=== PATIENT | female | born 1990 ===

== ENCOUNTER 2020-01-27 16:35 | Outpatient (REF) | payer OTHER, SELFPAY ==
[2020-01-27 16:52] LABS: COVID-19 Test Negative (Negative)
== END 2020-01-27 16:36 | disposition home or self-care (01) ==
LOC: HO.LAB 16:35
PROVIDERS: Visit Provider Internal Medicine
DX: Z20.828 Contact with and (suspected) exposure to other viral communicable diseases (principal)
CPT/HCPCS: 87635

== ENCOUNTER 2020-01-31 13:21 | Outpatient (REF) | payer OTHER, SELFPAY ==
[2020-01-31 13:49] LABS: COVID-19 Test Negative (Negative)
== END 2020-01-31 13:22 | disposition home or self-care (01) ==
LOC: HO.LAB 13:21
PROVIDERS: PCP Internal Medicine; Visit Provider Internal Medicine
DX: Z20.828 Contact with and (suspected) exposure to other viral communicable diseases (principal)
CPT/HCPCS: 87635

== ENCOUNTER 2020-02-13 14:35 | Outpatient (REF) | payer OTHER, SELFPAY ==
[2020-02-13 16:11] LABS: SARS COV2 PCR INHOUSE POSITIVE (Negative)
== END 2020-02-13 14:36 | disposition home or self-care (01) ==
LOC: HO.LAB 14:35
PROVIDERS: Visit Provider Internal Medicine
DX: Z20.828 Contact with and (suspected) exposure to other viral communicable diseases (principal)
CPT/HCPCS: U0003

== ENCOUNTER 2020-03-16 09:43 | Outpatient (REF) | payer OTHER, SELFPAY ==
[2020-04-14 15:19] LABS: CT PCR NOT DETECTED (Not Detect.); NG PCR NOT DETECTED (Not Detect.)
== END 2020-03-16 09:44 | disposition home or self-care (01) ==
LOC: HO.LAB 09:43
PROVIDERS: PCP Internal Medicine; Visit Provider Advanced Practice Midwife
DX: Z01.419 Encounter for gynecological examination (general) (routine) without abnormal findings (principal); Z11.8 Encounter for screening for other infectious and parasitic diseases; Z11.3 Encounter for screening for infections with a predominantly sexual mode of transmission
CPT/HCPCS: 87491; 87591

== ENCOUNTER → 2020-04-19 09:59 | Outpatient (BNVA) | payer OTHER, SELFPAY | PROVIDERS: PCP Internal Medicine; Visit Provider Advanced Practice Midwife | DX: Z30.430 Encounter for insertion of intrauterine contraceptive device (principal) | CPT/HCPCS: 58300; J7298 ==

== ENCOUNTER → 2020-07-11 13:49 | Outpatient (BNVA) | payer OTHER, SELFPAY | PROVIDERS: PCP Internal Medicine; Visit Provider Advanced Practice Midwife ==

== ENCOUNTER 2020-11-06 04:43 | Outpatient (REF) | payer OTHER, SELFPAY ==
[2020-11-06 05:00] LABS: Appearance Urine HAZY; Color Urine YELLOW; Glucose Urine UA NEG (NEG); Leukocyte Esterase Urine TRACE (NEG); Nitrite Urine POS (NEG); Specific Gravity - Urine 1.025 (1.005-1.025); UACC Culture Trigger YES; Urine Blood 1+ (NEG); Urine Ketones 5 MG/DL (NEG); Urine Protein TRACE MG/DL (NEG-TRACE)
[2020-11-06 05:16] LABS: Bacteria Urine 3+ /LPF; Mucus Urine 1+ /LPF; RBC Urine 0-2 /HPF (0); Squamous Epithelial Cell Urine 3+ /LPF
== END 2020-11-06 04:44 | disposition home or self-care (01) ==
LOC: HO.LAB 04:43
PROVIDERS: Visit Provider Student in an Organized Health Care Education/Training Program
DX: N39.0 Urinary tract infection, site not specified (principal)
CPT/HCPCS: 81001; 81003; 87086

== ENCOUNTER 2021-03-28 13:54 | Emergency (ER) | payer OTHER, SELFPAY ==
--- NOTE | ~2021-03-28 | CT_ITS ---
EXAMINATION: CT ABDOMEN AND PELVIS WITHOUT CONTRAST CLINICAL INFORMATION: Left flank pain COMPARISON: Pelvic ultrasound most recent July 2019 TECHNIQUE: Multidetector volumetric imaging was performed from the superior aspect of the liver through the pubic symphysis. Sagittal and coronal reformatted images were obtained on the technologist's workstation. This CT examination was performed using dose optimization techniques as appropriate, variously including the following: *Automated exposure control *Adjustment of mA and/or kV according to patient size (this includes techniques or standardized protocols for targeted exams where dose is matched to indication/reason for exam; i.e. extremities or head) *Use of iterative reconstruction technique DLP: 1338 mGy-cm FINDINGS: LUNG BASES: The visualized lung bases are unremarkable. LIVER, GALLBLADDER, AND BILIARY TREE: The liver is normal in size, shape, and attenuation. No focal hepatic lesion or biliary ductal dilatation is present. The gallbladder is unremarkable with no evidence of radiopaque gallstones, gallbladder wall thickening, or obvious pericholecystic inflammatory changes. PANCREAS: Unremarkable. SPLEEN: Unremarkable. ADRENAL GLANDS: Unremarkable. KIDNEYS AND URETERS: The kidneys are normal in size, shape, and attenuation. No hydronephrosis, hydroureter, or calculi seen. No perinephric stranding. BLADDER: Unremarkable. GASTROINTESTINAL TRACT: The small and large bowel are unremarkable. The appendix is unremarkable. ABDOMINAL WALL: No significant hernia is appreciated. LYMPH NODES: Normal. VASCULAR: Unremarkable. PELVIC VISCERA: There is an IUD in uterus in satisfactory position. There is a large cyst seen anterior to the uterus measuring 7.5 x 9 cm. This is new from July 2019 ultrasound. There is a cystic tubular structure seen adjacent to the right posterior side of the posterior uterus measuring 2 x 6 cm. This may correspond to the dilated tubular structure questionable for hydrosalpinx measuring 2.5 x 0.4 cm on July 2019 ultrasound. OSSEOUS STRUCTURES: There is curvature of the thoracic spine to the right. CT/CT abdomen pelvis wo con IMPRESSION: New large simple appearing cyst in the pelvis anterior to the uterus measuring 7.6 x 9.2 cm. Oval or tubular-shaped cystic structure in the right posterior pelvis measuring 2 x 6 cm questionable for hydrosalpinx similar to previous pelvic ultrasound. New IUD in the uterus in satisfactory position. Findings could be better evaluated with pelvic ultrasound if clinically indicated. Otherwise unremarkable exam. Fleischner guidelines were followed.
--- NOTE | ~2021-03-28 | US_ITS ---
EXAMINATION: US PELVIS CLINICAL INFORMATION: Abnormal CT scan of the pelvis with a large cyst seen anterior to the uterus measuring 7.5 x 9 cm, new from July 2019 ultrasound. There was also a cystic tubular structure adjacent to the right posterior side of the posterior uterus measuring 2 x 6 cm which may correspond to the dilated tubular structure questionable for hydrosalpinx measuring 2.5 x 0.4 cm on July 2019 ultrasound COMPARISON: CT scan 03/28/2021 and pelvic ultrasound 07/12/2019 TECHNIQUE: Ultrasound of the pelvis is performed using both transabdominal and transvaginal transducers along with Doppler. Transvaginal imaging is performed due to inadequate visualization transabdominally. FINDINGS: Uterus: The uterus is anteverted and measures 8.2 x 3.9 x 4.8 cm. An IUD is present in the uterus. Nabothian cysts are present. The double wall endometrial thickness is 13 mm. The uterus is smooth in contour and has normal myometrial echogenicity. No visible fibroid. Adnexa: There is a small to moderate amount of pelvic ascites, new since the prior exam. Right ovary measures 5.9 x 2.8 x 2.1 cm for a volume of 18.2 mL which includes a 2.4 x 2.8 x 1.8 cm complex possibly hemorrhagic cyst and an additional 3.4 x 2.2 x 2.6 cm cyst with probable septation versus 2 adjacent cysts. The large cyst seen on the CT scan anterior to the uterus is identified and measures 8.0 x 6.0 x 8.8 cm. Left ovary was not visualized. There is normal color flow to the RT adnexa without evidence of ovarian torsion. The left ovary could not be evaluated as it was not seen. US/US pelvic and transvaginal IMPRESSION: 1. Right ovary contains a hemorrhagic cyst and another cyst complicated with a single septation. 2. Midline cystic area could represent a hydrosalpinx or possibly a cyst related to the left ovary which was not visualized. 3. Small to moderate amount of free intraperitoneal fluid, new since the prior study.
[2021-03-28 14:12] VITALS: BP 155/81; PULSE 112; RESP 20; TEMP 36.8; O2SAT 98; BMI 45.1
--- NOTE | 2021-03-28 14:42 | ED.ABDPAIN ---
HPI - Abdominal Pain General Chief Complaint: Abdominal Pain Stated Complaint: Lower abd pain Time Seen by Provider: 03/28/21 14:24 Source: patient Mode of arrival: ambulatory Limitations: no limitations History of Present Illness HPI narrative: 31-year-old female here with reports of left-sided back pain with radiation to the left lower abdomen for several hours. Patient tells me that she had a similar episode on Friday with some vomiting but then it seemed to resolve. Today the pain reoccurs with vomiting, inability to tolerate p.o.. No associated urinary symptoms, diarrhea, fevers, chills, vaginal discharge. Patient has an IUD. No concern for . Related Data Home Medications Medication Instructions Recorded Confirmed levonorgestrel 20 mcg/24 hours (7 INTRAUTERINE 07/11/20 yrs) 52 mg intrauterine device (Mirena) Previous Rx's Medication Instructions Recorded desogestrel 0.15 mg-ethinyl 1 tab PO DAILY #84 tab 03/16/20 estradiol 0.03 mg tablet (Isibloom) ibuprofen 600 mg tablet 600 mg PO Q8H PRN #20 tab 03/28/21 ondansetron 4 mg disintegrating 4 mg PO Q6H PRN #15 tab 03/28/21 tablet oxycodone 5 mg tablet 5 mg PO Q8H PRN #8 tab 03/28/21 Allergies Allergy/AdvReac Type Severity Reaction Status Date / Time No Known Allergies Allergy Verified 07/11/20 14:04 [No Known Allergies*] Review of Systems Review of Systems Yes all other systems are reviewed and are negative Constitutional: Reports no additional constitutional complaints, Denies body ache(s), Denies chills, Denies fever(s), Denies headache(s) and Denies weakness Eyes: Reports no additional eye complaints and Denies change in vision Reports system reviewed and no additional complaints, except as documented, Denies dizziness, Denies headache(s), Denies nasal congestion, Denies nasal discharge and Denies neck pain Cardiovascular: Reports no additional cardiovascular complaints, Denies chest pain, Denies leg edema and Denies dyspnea Respiratory: Reports no additional respiratory complaints, Denies cough and Denies dyspnea Gastrointestinal: Reports no additional gastrointestinal complaints, Reports abdominal pain, Denies diarrhea, Denies nausea and Reports vomiting Genitourinary: Reports no additional female genitourinary complaints and Denies urinary incontinence Musculoskeletal: Reports no additional musculoskeletal complaints, Reports back pain, Denies arthralgias, Denies joint swelling, Denies neck pain, Denies numbness and Denies tingling Skin/Breast: Reports system reviewed and no additional complaints, except as docu and Denies rash Reports system reviewed and no additional complaints, except as documented, Denies Abnormal speech present, Denies dizziness, Denies headache(s), Denies numbness, Denies tingling and Denies weakness Physical Exam Vital Signs: Vital Signs: Last Vital Signs Temp 98.2 F 03/28/21 15:55 Pulse 77 03/28/21 15:55 Resp 15 03/28/21 15:55 BP 129/60 03/28/21 15:55 Pulse Ox 100 03/28/21 15:55 BMI result Body Mass Index 45.1 Const: Other: Patient is in pain General: awake and in distress Orientation/consciousness: patient oriented x3 Limitations: no limitations HENMT: Head: Yes normal to inspection Ears: hearing grossly normal bilaterally General nose exam: Normal external nose present Face and sinus: Yes normal facial exam Mouth: Normal oral and palatal mucosa present Throat: Yes posterior oropharynx normal Eyes: General: appearance normal, both eyes and all related structures Pupils: Equal, round and reactive pupils present Neck: Neck: Yes normal visual inspection Chest: Chest palpation & inspection: normal inspection of the chest Resp: Effort & Inspection: normal respiratory effort Auscultation: clear to auscultation bilaterally Cardio: Rate: regular rate Rhythm: regular rhythm Peripheral pulses: Peripheral pulses 2+ throughout GI: Inspection: Yes normal to inspection Palpation (GI): Soft to palpation and Tenderness to palpation present (GI) (Left lower quadrant) Auscultation: normal bowel sounds : General: Yes CVA tenderness (Left) Back/Spine/Pelvis: Back: CVA tenderness (Left) Thoracic/Lumbar Spine: thoracic and lumbar spine normal to inspection Skin: General skin exam: no rashes or lesions noted Neuro: General: patient oriented x3, no focal motor deficits and normal sensation to monofilament Cranial nerves: Yes Equal, round and reactive pupils present Cognition (Neuro): normal cognition Speech: No Abnormal speech present Gait exam (Neuro): Normal gait present Motor exam (neuro): 5/5 motor strength present throughout Extrem: General: Yes normal to inspection Course Course Course Narrative: 31-year-old female here with colicky left back pain with radiation to the left groin since Friday with associated vomiting. Concern for renal colic. Will check labs, UA, CT. Provide analgesia, antiemetic and fluids 1520-Continued pain after toradol, zofran. Will give morphine, phenergan, benadryl and re-assess. 1649- CT A/P-New large simple appearing cyst in the pelvis anterior to the uterus measuring 7.6 x 9.2 cm. Oval or tubular-shaped cystic structure in the right posterior pelvis measuring 2 x 6 cm questionable for hydrosalpinx similar to previous pelvic ultrasound. New IUD in the uterus in satisfactory position. Findings could be better evaluated with pelvic ultrasound if clinically indicated. Otherwise unremarkable exam. -Continued pain. Will check pelvic US. Patient denies vaginal discharge. She is sexually active with one partner. Will send BV, CT NG panel. Defer pelvic exam. 1839- IMPRESSION: 1.? Right ovary contains a hemorrhagic cyst and another cyst complicated with a single septation. 2.? Midline cystic area could represent a hydrosalpinx or possibly a cyst related to the left ovary which was not visualized. 3.? Small to moderate amount of free intraperitoneal fluid, new since the prior study. Left ovary was not visualized. Less likely ovarian torsion with improving exam. The case was discussed with Dr. Santacruz due to the multiple cysts seen and the size of the cyst. If pain is well controlled recommended discharge home with outpatient follow-up. Recommended that she return for severe pain and at that point he would do a surgical intervention. The patient is feeling much improved. She is tolerating liquids. No additional vomiting episodes. Will discharge home with OBGYN follow-up. MDM - Abdominal Pain MDM Narrative Medical decision making narrative: Renal colic, pyelonephritis, ovarian cyst, diverticulitis Medical Records Attestation: I reviewed the patient's medical records. Lab Data Attestation: I reviewed the patient's lab results. Result diagrams: 03/28/21 14:47 03/28/21 14:47 Labs: Lab Results 03/28/21 03/28/21 03/28/21 Range/Units 14:47 14:47 14:47 WBC 9.6 (4.8-10.8) X10*3/uL RBC 4.85 (4.20-5.50) X10*6/uL Hgb 12.7 (12.0-16.0) g/dl Hct 39.7 (37.0-47.0) % MCV 81.9 (80.0-98.0) fL MCH 26.2 L (27.0-33.0) pg MCHC 32.0 (31.0-35.0) g/dl RDW 16.0 (11.0-16.0) % Plt Count 394 (160-400) X10*3/uL MPV 9.3 L (9.4-12.3) fL Immature Gran % (Auto) 0.2 (0.0-0.4) % Neut % (Auto) 69.6 (45-73) % Lymph % (Auto) 19.9 L (20-40) % [place] % (Auto) 7.4 (2-11) % Eos % (Auto) 2.5 (0-4) % Baso % (Auto) 0.4 (0-2) % Lymph # (Auto) 1.9 (1.2-4.9) X10*3/uL [place] # (Auto) 0.7 (0.1-1.2) X10*3/uL Eos # (Auto) 0.2 (0.0-0.4) X10*3/uL Baso # (Auto) 0.0 (0.0-0.2) X10*3/uL Abs Immat Gran (auto) 0.02 (0.00-0.03) X10*3/uL Absolute Neuts (auto) 6.7 (2.0-8.3) x10*3/uL Absolute Nucleated RBC 0.000 (0.0-0.012) X10*3/uL Nucleated RBC % (auto) 0.0 (0.0-0.2) /100WBC Sodium 140 (135-145) mmol/L Potassium 4.1 (3.3-5.1) mmol/L Chloride 106 (96-108) mmol/L Carbon Dioxide 26 (22-29) mmol/L Anion Gap 12 (12-20) BUN 12 (9-16) mg/dL Creatinine 0.73 (0.5-1.4) mg/dL Estim Creat Clear Calc 150.8 Estimated GFR > 60 Random Glucose 99 (60-115) mg/dL Calcium 9.7 (8.4-10.2) mg/dL Total Bilirubin 0.4 0.4 (0.0-1.0) mg/dL Direct Bilirubin 0.2 (0.0-0.5) mg/dL AST 13 13 (5-31) U/L ALT 15 15 (0-31) U/L Alkaline Phosphatase 76 77 (39-117) U/L Total Protein 8.4 H 8.3 H (6.5-8.0) g/dL Albumin 4.0 3.9 (3.5-5.0) g/dL Urine Color Urine Appearance Urine pH (5.0-8.0) Ur Specific [place] (1.005-1.025) Urine Protein (NEG-TRACE) MG/DL Urine Glucose (UA) (NEG) MG/DL Urine Ketones (NEG) MG/DL Urine Blood (NEG) Urine Nitrite (NEG) Ur Leukocyte Esterase (NEG) Urine RBC (0) /HPF Urine WBC (0-4) /HPF Ur Squamous Epith Cells /LPF Urine Bacteria /LPF Urine Mucus /LPF Urine Test (NEGATIVE) 03/28/21 03/28/21 Range/Units 15:23 15:23 WBC (4.8-10.8) X10*3/uL RBC (4.20-5.50) X10*6/uL Hgb (12.0-16.0) g/dl Hct (37.0-47.0) % MCV (80.0-98.0) fL MCH (27.0-33.0) pg MCHC (31.0-35.0) g/dl RDW (11.0-16.0) % Plt Count (160-400) X10*3/uL MPV (9.4-12.3) fL Immature Gran % (Auto) (0.0-0.4) % Neut % (Auto) (45-73) % Lymph % (Auto) (20-40) % [place] % (Auto) (2-11) % Eos % (Auto) (0-4) % Baso % (Auto) (0-2) % Lymph # (Auto) (1.2-4.9) X10*3/uL [place] # (Auto) (0.1-1.2) X10*3/uL Eos # (Auto) (0.0-0.4) X10*3/uL Baso # (Auto) (0.0-0.2) X10*3/uL Abs Immat Gran (auto) (0.00-0.03) X10*3/uL Absolute Neuts (auto) (2.0-8.3) x10*3/uL Absolute Nucleated RBC (0.0-0.012) X10*3/uL Nucleated RBC % (auto) (0.0-0.2) /100WBC Sodium (135-145) mmol/L Potassium (3.3-5.1) mmol/L Chloride (96-108) mmol/L Carbon Dioxide (22-29) mmol/L Anion Gap (12-20) BUN (9-16) mg/dL Creatinine (0.5-1.4) mg/dL Estim Creat Clear Calc Estimated GFR Random Glucose (60-115) mg/dL Calcium (8.4-10.2) mg/dL Total Bilirubin (0.0-1.0) mg/dL Direct Bilirubin (0.0-0.5) mg/dL AST (5-31) U/L ALT (0-31) U/L Alkaline Phosphatase (39-117) U/L Total Protein (6.5-8.0) g/dL Albumin (3.5-5.0) g/dL Urine Color YELLOW Urine Appearance HAZY Urine pH 6.0 (5.0-8.0) Ur Specific [place] >= 1.030 H (1.005-1.025) Urine Protein TRACE (NEG-TRACE) MG/DL Urine Glucose (UA) NEG (NEG) MG/DL Urine Ketones NEG (NEG) MG/DL Urine Blood 2+ H (NEG) Urine Nitrite NEG (NEG) Ur Leukocyte Esterase 1+ H (NEG) Urine RBC 10-14 H (0) /HPF Urine WBC 1-4 (0-4) /HPF Ur Squamous Epith Cells 3+ /LPF Urine Bacteria 1+ /LPF Urine Mucus TRACE /LPF Urine Test NEGATIVE (NEGATIVE) Imaging Data CT scan - abdomen: Attestation: I personally reviewed and interpreted this imaging study as follows: Radiologist's impression: IMPRESSION: New large simple appearing cyst in the pelvis anterior to the uterus measuring 7.6 x 9.2 cm. Oval or tubular-shaped cystic structure in the right posterior pelvis measuring 2 x 6 cm questionable for hydrosalpinx similar to previous pelvic ultrasound. New IUD in the uterus in satisfactory position. Findings could be better evaluated with pelvic ultrasound if clinically indicated. Otherwise unremarkable exam. ? Fleischner guidelines were followed. pelvic US: Attestation: I personally reviewed and interpreted this imaging study as follows: Radiologist's impression: FINDINGS: Uterus: The uterus is anteverted and measures 8.2 x 3.9 x 4.8? cm.? An? IUD is present in the uterus. Nabothian cysts are present. The double wall endometrial thickness is 13 mm.? The uterus is smooth in contour and has normal myometrial echogenicity. ? No visible fibroid. Adnexa: There is a small to moderate amount of pelvic ascites, new since the prior exam. Right ovary measures 5.9 x 2.8 x 2.1 cm for a volume of 18.2 mL which includes a 2.4 x 2.8 x 1.8 cm complex possibly hemorrhagic cyst and an additional 3.4 x 2.2 x 2.6 cm cyst with probable septation versus 2 adjacent cysts. ? The large cyst seen on the CT scan anterior to the uterus is identified and measures 8.0 x 6.0 x 8.8 cm. Left ovary was not visualized. There is normal color flow to the RT adnexa without evidence of ovarian torsion. The left ovary could not be evaluated as it was not seen. US/US pelvic and transvaginal IMPRESSION: 1.? Right ovary contains a hemorrhagic cyst and another cyst complicated with a single septation. 2.? Midline cystic area could represent a hydrosalpinx or possibly a cyst related to the left ovary which was not visualized. 3.? Small to moderate amount of free intraperitoneal fluid, new since the prior study. Discharge Plan Discharge Clinical Impression: Ovarian cyst Patient Disposition: Home, Self-Care Instructions: Ovarian Cyst (ED) Additional Instructions: Call [facility] for follow-up. Return for severe pain as discussed Prescriptions: New ibuprofen 600 mg tablet 600 mg PO Q8H PRN (Reason: pain) Qty: 20 RF: 0 oxycodone 5 mg tablet 5 mg PO Q8H PRN (Reason: pain) Qty: 8 RF: 0 ondansetron 4 mg tablet,disintegrating 4 mg PO Q6H PRN (Reason: nausea and vomiting) Qty: 15 RF: 0 No Action desogestrel-ethinyl estradiol [Isibloom] 0.15-0.03 mg tablet 1 tab PO DAILY Qty: 84 RF: 3 Mirena 20 mcg/24 hours (6 yrs) 52 mg intrauterine device intrauterine RF: 0 Referrals: Jalil Santacruz MD [Physician] - 2 days Stand Alone Forms: Work/School Release [facility] Past Medical History Attestation statement: The following information was validated with the patient. Source: old records reviewed and nursing notes reviewed Surgical History No history of previous surgery Family History Family History Maternal Grandmother HTN (hypertension) Paternal Grandmother HTN (hypertension) Diabetes mellitus Paternal Grandfather HTN (hypertension) Diabetes mellitus Alzheimer disease Maternal Aunt Breast cancer Paternal Aunt Breast cancer Social History Social History Alcohol intake: never Advance Directives: No Advance Directives Information Provided: Yes Patient : No Gender identity: Female
[2021-03-28 14:51] LABS: MANUAL DIFF FLAG NO
[2021-03-28 14:52] LABS: Basophils Percent Auto 0.4 % (0-2); Eosinophils Absolute Auto 0.2 X10*3/uL (0.0-0.4); Eosinophils Percent Auto 2.5 % (0-4); Hematocrit 39.7 % (37.0-47.0); Hemoglobin 12.7 g/dl (12.0-16.0); Imm Gran Abs Auto 0.02 X10*3/uL (0.00-0.03); Imm Gran Pct Auto 0.2 % (0.0-0.4); Lymphocytes Absolute Auto 1.9 X10*3/uL (1.2-4.9); Lymphocytes Percent Auto 19.9 % (20-40); Mean Corpuscular Hemoglobin 26.2 pg (27.0-33.0); Mean Corpuscular Volume 81.9 fL (80.0-98.0); Mean Platelet Volume 9.3 fL (9.4-12.3); Monocytes Absolute Auto 0.7 X10*3/uL (0.1-1.2); Monocytes Percent Auto 7.4 % (2-11); Neutrophils Absolute Auto 6.7 x10*3/uL (2.0-8.3); Neutrophils Percent Auto 69.6 % (45-73); Platelet Count 394 X10*3/uL (160-400); Red Blood Count 4.85 X10*6/uL (4.20-5.50); White Blood Count 9.6 X10*3/uL (4.8-10.8)
[2021-03-28] MEDS: ondansetron HCL 4 MG/2 ML VIAL IVPUSH (14:54)
[2021-03-28] MEDS: 0.9 % Sodium Chloride 1,000 ML 999 ML IV (14:54)
[2021-03-28] MEDS: Ketorolac Tromethamine 30 MG/ML VIAL IVPUSH (14:54)
[2021-03-28 15:11] LABS: Alanine Aminotransferase 15 U/L (0-31); Albumin Level 3.9 g/dL (3.5-5.0); Alkaline Phosphatase 77 U/L (39-117); Aspartate Amino Transferase 13 U/L (5-31); Bilirubin Direct 0.2 mg/dL (0.0-0.5); Bilirubin Total 0.4 mg/dL (0.0-1.0); Total Protein 8.3 g/dL (6.5-8.0)
[2021-03-28 15:13] LABS: Alanine Aminotransferase 15 U/L (0-31); Alkaline Phosphatase 76 U/L (39-117); Anion Gap 12 (12-20); Aspartate Amino Transferase 13 U/L (5-31); Bilirubin Total 0.4 mg/dL (0.0-1.0); Blood Urea Nitrogen 12 mg/dL (9-16); Calcium 9.7 mg/dL (8.4-10.2); Carbon Dioxide 26 mmol/L (22-29); Chloride 106 mmol/L (96-108); Creatinine Clr Calc Pharmacy 150.8; Estimated Glomerular Filt Rate > 60; Glucose Random 99 mg/dL (60-115); Potassium 4.1 mmol/L (3.3-5.1); Sodium 140 mmol/L (135-145); Total Protein 8.4 g/dL (6.5-8.0)
[2021-03-28] MEDS: Morphine Sulfate 4 MG/ML CARTRIDGE IVPUSH ×2 (15:37→16:54)
[2021-03-28] MEDS: diphenhydrAMINE HCL 50 MG/ML VIAL 25 MG IVPUSH (15:37)
[2021-03-28 15:44] LABS: Appearance Urine HAZY; Color Urine YELLOW; Glucose Urine UA NEG (NEG); Leukocyte Esterase Urine 1+ (NEG); Nitrite Urine NEG (NEG); Specific Gravity - Urine >= 1.030 (1.005-1.025); UACC Culture Trigger YES; Urine Blood 2+ (NEG); Urine Ketones NEG (NEG); Urine Protein TRACE MG/DL (NEG-TRACE)
[2021-03-28 15:46] LABS: UPreg QC Valid YES; Urine Pregnancy NEGATIVE (NEGATIVE)
[2021-03-28 15:54] LABS: Bacteria Urine 1+ /LPF; Mucus Urine TRACE /LPF; Squamous Epithelial Cell Urine 3+ /LPF
[2021-03-28 15:55] VITALS: BP 129/60; PULSE 77; RESP 15; TEMP 36.8; O2SAT 100
--- NOTE | 2021-03-28 17:00 | PC.NURSE ---
REPORT TAKEN FROM OLGA AWAN.
[2021-03-28 18:00] VITALS: BP 146/86; PULSE 78; RESP 16
--- NOTE | 2021-03-28 18:55 | P.CONOB_ITS ---
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 Today the pain reoccurs with vomiting, inability to tolerate p.o..? No associated urinary symptoms, diarrhea, fevers, chills, vaginal discharge.? Patient has an IUD. The time of the call for my consult it was reported the patient is comfortable no more pain nausea or vomiting tolerating diet cc:: CC: OB [facility] Family History Family History Maternal Grandmother HTN (hypertension) Paternal Grandmother HTN (hypertension) Diabetes mellitus Paternal Grandfather HTN (hypertension) Diabetes mellitus Alzheimer disease Maternal Aunt Breast cancer Paternal Aunt Breast cancer Surgical History Surgical History No history of previous surgery Social History Social History Alcohol intake: never Advance Directives: No Advance Directives Information Provided: Yes Patient : No Gender identity: Female Meds Allergies Allergy/AdvReac Type Severity Reaction Status Date / Time No Known Allergies Allergy Verified 07/11/20 14:04 [No Known Allergies*] Home Medications Medication Instructions Recorded Confirmed Last Taken Type levonorgestrel 20 mcg/24 hours (7 INTRAUTERINE 07/11/20 Unknown History yrs) 52 mg intrauterine device (Mirena) [employer]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 Physical Exam Vitals Vital signs: Temp Pulse Resp BP Pulse Ox 98.2 F 77 15 129/60 100 03/28/21 15:55 03/28/21 15:55 03/28/21 15:55 03/28/21 15:55 03/28/21 15:55 BMI result Body Mass Index 45.1 Additional Comments: Abdominal exam reported by Caitlin Contreras, emergency room PA, mild left lower quadrant tenderness no guarding or rebound, soft abdomen 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 Labs CBC & Chem 7: 03/28/21 14:47 03/28/21 14:47 Labs: Short CBC 03/28/21 Range/Units 14:47 WBC 9.6 (4.8-10.8) X10*3/uL Hgb 12.7 (12.0-16.0) g/dl Hct 39.7 (37.0-47.0) % Plt Count 394 (160-400) X10*3/uL BMP 03/28/21 14:47 Sodium 140 Potassium 4.1 Chloride 106 Carbon Dioxide 26 BUN 12 Creatinine 0.73 Calcium 9.7 Liver Function 03/28/21 03/28/21 Range/Units 14:47 14:47 Total Bilirubin 0.4 0.4 (0.0-1.0) mg/dL Direct Bilirubin 0.2 (0.0-0.5) mg/dL AST 13 13 (5-31) U/L ALT 15 15 (0-31) U/L Alkaline Phosphatase 76 77 (39-117) U/L Albumin 4.0 3.9 (3.5-5.0) g/dL Urine 03/28/21 03/28/21 Range/Units 15:23 15:23 Urine Color YELLOW Urine Appearance HAZY Urine pH 6.0 (5.0-8.0) Ur Specific [place] >= 1.030 H (1.005-1.025) Urine Protein TRACE (NEG-TRACE) MG/DL Urine Glucose (UA) NEG (NEG) MG/DL Urine Test NEGATIVE (NEGATIVE) Imaging CT scan - pelvis: Radiologist's impression: ITS Impressions Abdomen/Pelvis CT 03/28/21 16:28 IMPRESSION: New large simple appearing cyst in the pelvis anterior to the uterus measuring 7.6 x 9.2 cm. Oval or tubular-shaped cystic structure in the right posterior pelvis measuring 2 x 6 cm questionable for hydrosalpinx similar to previous pelvic ultrasound. New IUD in the uterus in satisfactory position. Findings could be better evaluated with pelvic ultrasound if clinically indicated. Otherwise unremarkable exam. Fleischner guidelines were followed. Doppler Study Ultrasound 03/28/21 17:22 IMPRESSION: 1. Right ovary contains a hemorrhagic cyst and another cyst complicated with a single septation. 2. Midline cystic area could represent a hydrosalpinx or possibly a cyst related to the left ovary which was not visualized. 3. Small to moderate amount of free intraperitoneal fluid, new since the prior study. Pelvic/Transvag US 03/28/21 17:22 IMPRESSION: 1. Right ovary contains a hemorrhagic cyst and another cyst complicated with a single septation. 2. Midline cystic area could represent a hydrosalpinx or possibly a cyst related to the left ovary which was not visualized. 3. Small to moderate amount of free intraperitoneal fluid, new since the prior study. US - abdomen: Radiologist's impression: ITS Impressions Abdomen/Pelvis CT 03/28/21 16:28 IMPRESSION: New large simple appearing cyst in the pelvis anterior to the uterus measuring 7.6 x 9.2 cm. Oval or tubular-shaped cystic structure in the right posterior pelvis measuring 2 x 6 cm questionable for hydrosalpinx similar to previous pelvic ultrasound. New IUD in the uterus in satisfactory position. Findings could be better evaluated with pelvic ultrasound if clinically indicated. Otherwise unremarkable exam. Fleischner guidelines were followed. Doppler Study Ultrasound 03/28/21 17:22 IMPRESSION: 1. Right ovary contains a hemorrhagic cyst and another cyst complicated with a single septation. 2. Midline cystic area could represent a hydrosalpinx or possibly a cyst related to the left ovary which was not visualized. 3. Small to moderate amount of free intraperitoneal fluid, new since the prior study. Pelvic/Transvag US 03/28/21 17:22 IMPRESSION: 1. Right ovary contains a hemorrhagic cyst and another cyst complicated with a single septation. 2. Midline cystic area could represent a hydrosalpinx or possibly a cyst related to the left ovary which was not visualized. 3. Small to moderate amount of free intraperitoneal fluid, new since the prior study. Assessment and Plan (1) Ovarian cyst: Status: Acute GC and Chlamydia, BV panel taken still pending. Urine test was negative CBC within normal. Differential diagnosis discussed with GIGI Rodrigues, complex ovarian cysts could be but not limited to: benign and malignant physician gynecologist on gynecological causes. Since the patient pain has resolved, she is tolerating p.o. diet and her abdomin al exam benign recommended the following: Discharge the patient home on nonsteroidal anti-inflammatory drugs, instructions to be given to the patient to refrain from intercourse or strenuous exercises , the patient is to call or come back to emergency room in case of recurrence of her pain, nausea and vomiting, fever, and follow-up as an outpatient in OBGYN practice I was consulted on the phone regarding the patient, I did not see the patient nor examined her
[2021-03-29 05:19] LABS: CT PCR NOT DETECTED (Not Detect.); NG PCR NOT DETECTED (Not Detect.)
[2021-03-29 09:35] LABS: BV Int Neg Control Negative (Negative); BV Int Pos Control Positive (Positive)
== END 2021-03-28 19:07 | disposition home or self-care (01) ==
PROVIDERS: Emergency Medicine Emergency Medical Services; Nurse Practitioner Family; Emergency Provider Internal Medicine; PCP Internal Medicine
DX: N83.202 Unspecified ovarian cyst, left side (principal); M54.50 Low back pain, unspecified; R10.30 Lower abdominal pain, unspecified; Z79.899 Other long term (current) drug therapy; Z20.2 Contact with and (suspected) exposure to infections with a predominantly sexual mode of transmission
CPT/HCPCS: 36415; 74176; 76830; 76856; 80053; 80076; 81001; 81025; 82248; 85025; 87086; 87480; 87491; 87510; 87591; 87660; 93975; 96361; 96374; 96375; 96376; 99284; J1200; J1885; J2270; J2405; J2550

== ENCOUNTER 2021-03-29 20:41 | Observation (INO) | payer OTHER, SELFPAY ==
--- NOTE | ~2021-03-29 | US_ITS ---
EXAMINATION: US PELVIS CLINICAL INFORMATION: Right ovarian cyst. Question rupture, torsion. COMPARISON: 03/28/2021 TECHNIQUE: Ultrasound of the pelvis is performed using both transabdominal and transvaginal transducers along with Doppler. Transvaginal imaging is performed due to inadequate visualization transabdominally. FINDINGS: Uterus: The uterus is anteverted and measures 8.3 x 4.2 x [address] in the endometrium. No abnormal thickening. The uterus is smooth in contour and has normal myometrial echogenicity. No visible fibroid. Adnexa: Both ovaries are visualized. There is normal color flow to the adnexa. There is no ovarian torsion. Small volume of pelvic free fluid. Redemonstration of the cystic structure in the central pelvis anterior to the uterus. This measures 7.9 x 7.3 x 8.6 cm, similar to prior. Right ovary measures 2.2 x 1.5 x 1.2 cm. Normal arterial and venous spectral waveforms. Left ovary measures 3.6 x 2.5 x 1.9 cm. Normal arterial and venous spectral waveforms. Small follicle noted. US/US pelvic complete IMPRESSION: Limited evaluation on transabdominal imaging only. No evidence of active ovarian torsion. The pelvic cystic structure is unchanged from recent prior study.
[2021-03-29 20:49] VITALS: BP 154/85; PULSE 135; RESP 20; TEMP 38; O2SAT 96; BMI 43.9
--- NOTE | 2021-03-29 21:04 | ED.ABDPAIN ---
HPI - Abdominal Pain General Chief Complaint: Abdominal Pain Stated Complaint: abd pain Time Seen by Provider: 03/29/21 21:04 Source: patient Mode of arrival: ambulatory History of Present Illness HPI narrative: Patient with no significant past medical history was seen here yesterday for lower abdominal pain for last 3 days with gradual onset workup showed about 9 cmx 7.5 cm right paraovarian cyst with history of hydrosalpinx measuring 2.5x 0.4 cm on 07/25 patient denies any vaginal discharge no increase in pain during defecation feels her bladder is full all the time. No fever no chills patient has some cold symptoms a few days ago. Lab workup showed normal WBC count yesterday and normal appendix in the CT scan. Patient advised to follow up as outpatient but now patient comes back as pain is gradually getting worse and today she had a fever of 102.1 at home. Related Data Home Medications Medication Instructions Recorded Confirmed levonorgestrel 20 mcg/24 hours (7 INTRAUTERINE 07/11/20 yrs) 52 mg intrauterine device (Mirena) Previous Rx's Medication Instructions Recorded desogestrel 0.15 mg-ethinyl 1 tab PO DAILY #84 tab 03/16/20 estradiol 0.03 mg tablet (Isibloom) ibuprofen 600 mg tablet 600 mg PO Q8H PRN #20 tab 03/28/21 ondansetron 4 mg disintegrating 4 mg PO Q6H PRN #15 tab 03/28/21 tablet oxycodone 5 mg tablet 5 mg PO Q8H PRN #8 tab 03/28/21 Allergies Allergy/AdvReac Type Severity Reaction Status Date / Time No Known Allergies Allergy Verified 07/11/20 14:04 [No Known Allergies*] Review of Systems Review of Systems Yes all other systems are reviewed and are negative Physical Exam Vital Signs: Vital Signs: Last Vital Signs Temp 98.9 F 03/29/21 22:47 Pulse 135 H 03/29/21 20:49 Resp 20 03/29/21 20:49 BP 154/85 H 03/29/21 20:49 Pulse Ox 96 03/29/21 20:49 BMI result Body Mass Index 43.9 Appearance: Alert. Oriented X3. No acute distress. Obese Eyes: No pallor or icterus ENT: Pharynx normal. Oral Mucosa moist Neck: Normal inspection. Neck supple. CVS: Normal heart rate and rhythm. Pulses normal. Respiratory: No respiratory distress. Equal air entry bilateral, no wheezing/rales/rhonchi Abdomen: Soft , lower suprapubic tenderness. No rebound tenderness , ++ guarding, Bowel sounds are present, no mass palpable, no CVA tenderness Skin: Skin warm and dry. Normal skin color. Normal skin turgor. Extremities: No lower extremity edema. No calf tenderness Neuro: Oriented X 3. MDM - Abdominal Pain MDM Narrative Medical decision making narrative: Patient was seen by Dr. Noam CABRERA who did the pelvic exam had some mucus discharge, and CMT will admit patient for possible PID for IV antibiotics unlikely infected cyst Lab Data Attestation: I reviewed the patient's lab results. Result diagrams: 03/29/21 21:32 03/29/21 21:32 Labs: Lab Results 03/29/21 03/29/21 03/29/21 Range/Units 21:05 21:32 21:32 WBC 12.9 H (4.8-10.8) X10*3/uL RBC 4.65 (4.20-5.50) X10*6/uL Hgb 12.2 (12.0-16.0) g/dl Hct 38.8 (37.0-47.0) % MCV 83.4 (80.0-98.0) fL MCH 26.2 L (27.0-33.0) pg MCHC 31.4 (31.0-35.0) g/dl RDW 16.1 H (11.0-16.0) % Plt Count 384 (160-400) X10*3/uL MPV 9.4 (9.4-12.3) fL Immature Gran % (Auto) 0.2 (0.0-0.4) % Neut % (Auto) 81.4 H (45-73) % Lymph % (Auto) 11.4 L (20-40) % Bell % (Auto) 5.9 (2-11) % Eos % (Auto) 0.9 (0-4) % Baso % (Auto) 0.2 (0-2) % Lymph # (Auto) 1.5 (1.2-4.9) X10*3/uL Bell # (Auto) 0.8 (0.1-1.2) X10*3/uL Eos # (Auto) 0.1 (0.0-0.4) X10*3/uL Baso # (Auto) 0.0 (0.0-0.2) X10*3/uL Abs Immat Gran (auto) 0.03 (0.00-0.03) X10*3/uL Absolute Neuts (auto) 10.5 H (2.0-8.3) x10*3/uL Absolute Nucleated RBC 0.000 (0.0-0.012) X10*3/uL Nucleated RBC % (auto) 0.0 (0.0-0.2) /100WBC Sodium 137 (135-145) mmol/L Potassium 4.3 (3.3-5.1) mmol/L Chloride 104 (96-108) mmol/L Carbon Dioxide 24 (22-29) mmol/L Anion Gap 13 (12-20) BUN 10 (9-16) mg/dL Creatinine 0.80 (0.5-1.4) mg/dL Estim Creat Clear Calc 139.9 Estimated GFR > 60 Random Glucose 128 H (60-115) mg/dL Lactic Acid (0.5-2.0) mmol/L Calcium 9.1 D (8.4-10.2) mg/dL Influenza Type A (PCR) NEGATIVE (Negative) Influenza Type B (PCR) NEGATIVE (Negative) RSV RNA Qual (PCR) NEGATIVE (Negative) SARS-CoV-2 RNA (RT-PCR) NEGATIVE (Negative) 03/29/21 Range/Units 21:32 WBC (4.8-10.8) X10*3/uL RBC (4.20-5.50) X10*6/uL Hgb (12.0-16.0) g/dl Hct (37.0-47.0) % MCV (80.0-98.0) fL MCH (27.0-33.0) pg MCHC (31.0-35.0) g/dl RDW (11.0-16.0) % Plt Count (160-400) X10*3/uL MPV (9.4-12.3) fL Immature Gran % (Auto) (0.0-0.4) % Neut % (Auto) (45-73) % Lymph % (Auto) (20-40) % Bell % (Auto) (2-11) % Eos % (Auto) (0-4) % Baso % (Auto) (0-2) % Lymph # (Auto) (1.2-4.9) X10*3/uL Bell # (Auto) (0.1-1.2) X10*3/uL Eos # (Auto) (0.0-0.4) X10*3/uL Baso # (Auto) (0.0-0.2) X10*3/uL Abs Immat Gran (auto) (0.00-0.03) X10*3/uL Absolute Neuts (auto) (2.0-8.3) x10*3/uL Absolute Nucleated RBC (0.0-0.012) X10*3/uL Nucleated RBC % (auto) (0.0-0.2) /100WBC Sodium (135-145) mmol/L Potassium (3.3-5.1) mmol/L Chloride (96-108) mmol/L Carbon Dioxide (22-29) mmol/L Anion Gap (12-20) BUN (9-16) mg/dL Creatinine (0.5-1.4) mg/dL Estim Creat Clear Calc Estimated GFR Random Glucose (60-115) mg/dL Lactic Acid 1.7 (0.5-2.0) mmol/L Calcium (8.4-10.2) mg/dL Influenza Type A (PCR) (Negative) Influenza Type B (PCR) (Negative) RSV RNA Qual (PCR) (Negative) SARS-CoV-2 RNA (RT-PCR) (Negative) Discharge Plan Discharge Clinical Impression: PID (acute pelvic inflammatory disease), Ovarian cyst Patient Disposition: Admitted As Inpatient COUNT INCLUDES THE [facility] Past Medical History Surgical History No history of previous surgery Family History Family History Maternal Grandmother HTN (hypertension) Paternal Grandmother HTN (hypertension) Diabetes mellitus Paternal Grandfather HTN (hypertension) Diabetes mellitus Alzheimer disease Maternal Aunt Breast cancer Paternal Aunt Breast cancer Social History Social History Alcohol intake: never Advance Directives: No Advance Directives Information Provided: No Patient : No Gender identity: Female
[2021-03-29] MEDS: 0.9 % Sodium Chloride 1,000 ML 999 ML IVCONT (21:37)
[2021-03-29] MEDS: Ketorolac Tromethamine 30 MG/ML VIAL IVPUSH (21:38)
[2021-03-29] MEDS: ondansetron HCL 4 MG/2 ML VIAL IVPUSH (21:38)
[2021-03-29] MEDS: HYDROmorphone HCl 2 MG/ML VIAL IVPUSH (21:40)
[2021-03-29 21:46] LABS: MANUAL DIFF FLAG NO
[2021-03-29 21:47] LABS: Basophils Percent Auto 0.2 % (0-2); Eosinophils Absolute Auto 0.1 X10*3/uL (0.0-0.4); Eosinophils Percent Auto 0.9 % (0-4); Hematocrit 38.8 % (37.0-47.0); Hemoglobin 12.2 g/dl (12.0-16.0); Imm Gran Abs Auto 0.03 X10*3/uL (0.00-0.03); Imm Gran Pct Auto 0.2 % (0.0-0.4); Lymphocytes Absolute Auto 1.5 X10*3/uL (1.2-4.9); Lymphocytes Percent Auto 11.4 % (20-40); Mean Corpuscular HGB Conc 31.4 g/dl (31.0-35.0); Mean Corpuscular Hemoglobin 26.2 pg (27.0-33.0); Mean Corpuscular Volume 83.4 fL (80.0-98.0); Mean Platelet Volume 9.4 fL (9.4-12.3); Monocytes Absolute Auto 0.8 X10*3/uL (0.1-1.2); Monocytes Percent Auto 5.9 % (2-11); Neutrophils Absolute Auto 10.5 x10*3/uL (2.0-8.3); Neutrophils Percent Auto 81.4 % (45-73); Platelet Count 384 X10*3/uL (160-400); Red Blood Count 4.65 X10*6/uL (4.20-5.50); Red Cell Distribution Width 16.1 % (11.0-16.0); White Blood Count 12.9 X10*3/uL (4.8-10.8)
[2021-03-29 21:48] LABS: Influenza A PCR NEGATIVE (Negative); Influenza B PCR NEGATIVE (Negative); Resp Syncy Virus RNA Qual PCR NEGATIVE (Negative); SARS COV2 PCR INHOUSE NEGATIVE (Negative)
[2021-03-29 21:59] LABS: Lactic Acid 1.7 mmol/L (0.5-2.0)
[2021-03-29 22:01] LABS: Anion Gap 13 (12-20); Blood Urea Nitrogen 10 mg/dL (9-16); Calcium 9.1 mg/dL (8.4-10.2); Carbon Dioxide 24 mmol/L (22-29); Chloride 104 mmol/L (96-108); Creatinine Clr Calc Pharmacy 139.9; Estimated Glomerular Filt Rate > 60; Glucose Random 128 mg/dL (60-115); Potassium 4.3 mmol/L (3.3-5.1); Sodium 137 mmol/L (135-145)
[2021-03-29 22:47] VITALS: TEMP 37.2
--- NOTE | 2021-03-29 23:20 | P.HPOB_ITS ---
TEENAGE PROGRAM DIRECTOR - H&P: HPI History of Present Illness Reason for Admission: Pelvic pain Narrative: Lisa Goodrich is a 31 year old female who presented emergency room yesterday with few days history of pelvic pain pelvic ultrasound showed: 1.? Right ovary contains a hemorrhagic cyst and another cyst complicated with a single septation. 2.? Midline cystic area could represent a hydrosalpinx or possibly a cyst related to the left ovary which was not visualized. 3.? Small to moderate amount of free intraperitoneal fluid, new since the prior study. CBCs chemistry test all were negative , the patient was discharged home after pain improvement. The pain started recurring at home and patient developed 102.2 fever and worsening of the pain so she presenting into the emergency room In the emergency room white count was 12.9 and yesterday H&H was 12.2/ 38.8. Repeat ultrasound showed the following: Uterus: The uterus is anteverted and measures 8.3 x 4.2 x 5 cm.? [address] in the endometrium. No abnormal thickening. The uterus is smooth in contour and has normal myometrial echogenicity. ? No visible fibroid. Adnexa: Both ovaries are visualized. There is normal color flow to the adnexa. There is no ovarian torsion.? Small volume of pelvic free fluid. Redemonstration of the cystic structure in the central pelvis anterior to the uterus. This measures 7.9 x 7.3 x 8.6 cm, similar to prior. Right ovary measures 2.2 x 1.5 x 1.2 cm. Normal arterial and venous spectral waveforms. Left ovary measures 3.6 x 2.5 x 1.9 cm. Normal arterial and venous spectral waveforms. Small follicle noted. PATTERN GATER - Review of Systems Review of Systems ROS Unobtainable: All systems reviewed & are unremarkable except as noted in HPI and below OB PMFSH Family History Family History Maternal Grandmother HTN (hypertension) Paternal Grandmother HTN (hypertension) Diabetes mellitus Paternal Grandfather HTN (hypertension) Diabetes mellitus Alzheimer disease Maternal Aunt Breast cancer Paternal Aunt Breast cancer Surgical History Surgical History No history of previous surgery Social History Social History Alcohol intake: never Advance Directives: No Advance Directives Information Provided: No Patient : No service: No Current occupational status: employed Gender identity: Female Meds Allergies Allergy/AdvReac Type Severity Reaction Status Date / Time No Known Allergies Allergy Verified 07/11/20 14:04 [No Known Allergies*] TEENAGE PROGRAM DIRECTOR Physical Exam Vitals Vital signs: Temp Pulse Resp BP Pulse Ox 98.9 F 135 H 20 154/85 H 96 03/29/21 22:47 03/29/21 20:49 03/29/21 20:49 03/29/21 20:49 03/29/21 20:49 BMI result Body Mass Index 43.9 Abdomen Auscultation/Inspection/Palpation: Normal bowel sounds, Soft, Non-distended and Tenderness (Right and left lower quadrant tenderness) Female Genitalia (Pelvic) Vulva: No lesions Cervix: IUD string seen and Cervical motion tenderness Uterus: Normal size and Tender Adnexa/Parametria: Adnexal Tenderness: Bilateral and Adnexal Mass: Left Additional Comments: Milky vaginal discharge TEENAGE PROGRAM DIRECTOR - Results Labs CBC & Chem 7: 03/30/21 06:34 03/29/21 21:32 Labs: Short CBC 03/29/21 Range/Units 21:32 WBC 12.9 H (4.8-10.8) X10*3/uL Hgb 12.2 (12.0-16.0) g/dl Hct 38.8 (37.0-47.0) % Plt Count 384 (160-400) X10*3/uL BMP 03/29/21 21:32 Sodium 137 Potassium 4.3 Chloride 104 Carbon Dioxide 24 BUN 10 Creatinine 0.80 Calcium 9.1 D Imaging US - abdomen: Radiologist's impression: ITS Impressions Pelvis Ultrasound 03/29/21 22:37 IMPRESSION: Limited evaluation on transabdominal imaging only. No evidence of active ovarian torsion. The pelvic cystic structure is unchanged from recent prior study. Assessment and Plan (1) PID (acute pelvic inflammatory disease): Status: Acute Revaluation at 23:30, the patient after receiving Dilaudid 5 hours ago being more comfortable. Abdominal exam mild tenderness no rebound or guarding Since the patient gives a history of fever 102.2, cervical motion tenderness uterine tenderness and adnexal tenderness with IUD in place, will admit for observation and treat for possible PID with ceftriaxone 1 g Q 24, doxycycline 100 mg IV q.12 and Flagyl 500 mg IV q.12, pain management with oxycodone and ibuprofen p.r.n. for pain. if pain and fever improve with antibiotics will discharge on p.o. antibiotics, and manage the cyst on and out patient basis. Any worsening of the pain will evaluate for surgical intervention
[2021-03-29] MEDS: cefTRIAXone sodium 1 GM in 0.9 % Sodium Chloride 50 ML IV (23:59)
[2021-03-30] MEDS: metroNIDAZOLE/NS 500 MG/100 ML PIGGYBACK 100 MG IV (00:08)
[2021-03-30] MEDS: Ketorolac Tromethamine 30 MG/ML VIAL IVPUSH ×2 (00:33→03:53)
[2021-03-30] MEDS: oxyCODONE HCl Immed Release 5 MG TABLET PO ×4 (00:33→15:36)
[2021-03-30 06:39] LABS: MANUAL DIFF FLAG NO
[2021-03-30 06:45] LABS: Basophils Percent Auto 0.3 % (0-2); Eosinophils Absolute Auto 0.1 X10*3/uL (0.0-0.4); Hematocrit 32.9 % (37.0-47.0); Hemoglobin 10.4 g/dl (12.0-16.0); Imm Gran Abs Auto 0.03 X10*3/uL (0.00-0.03); Imm Gran Pct Auto 0.3 % (0.0-0.4); Lymphocytes Absolute Auto 1.9 X10*3/uL (1.2-4.9); Mean Corpuscular HGB Conc 31.6 g/dl (31.0-35.0); Mean Corpuscular Hemoglobin 26.1 pg (27.0-33.0); Mean Corpuscular Volume 82.7 fL (80.0-98.0); Mean Platelet Volume 9.1 fL (9.4-12.3); Monocytes Absolute Auto 1.1 X10*3/uL (0.1-1.2); Monocytes Percent Auto 10.4 % (2-11); Neutrophils Absolute Auto 7.4 x10*3/uL (2.0-8.3); Platelet Count 299 X10*3/uL (160-400); Red Blood Count 3.98 X10*6/uL (4.20-5.50); Red Cell Distribution Width 15.9 % (11.0-16.0); White Blood Count 10.5 X10*3/uL (4.8-10.8)
[2021-03-30 07:02] VITALS: BP 113/56; PULSE 87; RESP 12; TEMP 36.9; O2SAT 97
[2021-03-30] MEDS: metroNIDAZOLE 500 MG TABLET PO ×2 (08:26→20:04)
[2021-03-30] MEDS: Doxycycline Hyclate 100 MG in 0.9 % Sodium Chloride 250 ML 166.67 MG IV ×2 (08:27→17:41)
--- NOTE | 2021-03-30 09:02 | MHC.CM.PN ---
pt lives c her parents in their home. she is independent in her care. 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 she has no svcs. she does not use any AD c ambulation. she denies the need for vna svcs at dc. one of her parents will provide transport at dc. dc plan is home no svcs. cm to cont. to follow.
[2021-03-30 10:00] VITALS: BP 120/68; PULSE 84; RESP 16; O2SAT 98
--- NOTE | 2021-03-30 11:38 | P.PNOB_ITS ---
UPHOLSTERY INSTRUCTOR - Subjective Subjective Date of Service: 03/30/21 Interval history: Doing well today, feeling mild improvement in her pain. Good pain control, pain scale improving. T-max 100.4 degrees at around 21:00 yesterday. Leukocytosis resolved On ceftriaxone 1 g IV Q 24, doxycycline 100 mg IV b.i.d. and Flagyl 500 mg IV b.i.d. 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 Physical Exam Vitals Vital signs: Temp Pulse Resp BP Pulse Ox 98.5 F 84 16 120/68 98 03/30/21 07:02 03/30/21 10:00 03/30/21 10:00 03/30/21 10:00 03/30/21 10:00 BMI result Body Mass Index 43.9 Abdomen Auscultation/Inspection/Palpation: Normal bowel sounds, Soft, Non-distended and Tenderness (Bilateral were quadrant tenderness but milder and improving compared to yesterday) UPHOLSTERY INSTRUCTOR - Prog Note: Results Labs CBC & Chem 7: 03/30/21 06:34 03/29/21 21:32 Labs: Laboratory Results - last 24 hr 03/29/21 03/29/21 03/29/21 21:05 21:32 21:32 WBC 12.9 H RBC 4.65 Hgb 12.2 Hct 38.8 MCV 83.4 MCH 26.2 L MCHC 31.4 RDW 16.1 H Plt Count 384 MPV 9.4 Immature Gran % (Auto) 0.2 Neut % (Auto) 81.4 H Lymph % (Auto) 11.4 L [place] % (Auto) 5.9 Eos % (Auto) 0.9 Baso % (Auto) 0.2 Lymph # (Auto) 1.5 [place] # (Auto) 0.8 Eos # (Auto) 0.1 Baso # (Auto) 0.0 Abs Immat Gran (auto) 0.03 Absolute Neuts (auto) 10.5 H Absolute Nucleated RBC 0.000 Nucleated RBC % (auto) 0.0 Sodium 137 Potassium 4.3 Chloride 104 Carbon Dioxide 24 Anion Gap 13 BUN 10 Creatinine 0.80 Estim Creat Clear Calc 139.9 Estimated GFR > 60 Random Glucose 128 H Lactic Acid Calcium 9.1 D Influenza Type A (PCR) NEGATIVE Influenza Type B (PCR) NEGATIVE RSV RNA Qual (PCR) NEGATIVE SARS-CoV-2 RNA (RT-PCR) NEGATIVE 03/29/21 03/30/21 21:32 06:34 WBC 10.5 RBC 3.98 L Hgb 10.4 L Hct 32.9 L MCV 82.7 MCH 26.1 L MCHC 31.6 RDW 15.9 Plt Count 299 MPV 9.1 L Immature Gran % (Auto) 0.3 Neut % (Auto) 70.0 Lymph % (Auto) 18.0 L [place] % (Auto) 10.4 Eos % (Auto) 1.0 Baso % (Auto) 0.3 Lymph # (Auto) 1.9 [place] # (Auto) 1.1 Eos # (Auto) 0.1 Baso # (Auto) 0.0 Abs Immat Gran (auto) 0.03 Absolute Neuts (auto) 7.4 Absolute Nucleated RBC 0.000 Nucleated RBC % (auto) 0.0 Sodium Potassium Chloride Carbon Dioxide Anion Gap BUN Creatinine Estim Creat Clear Calc Estimated GFR Random Glucose Lactic Acid 1.7 Calcium Influenza Type A (PCR) Influenza Type B (PCR) RSV RNA Qual (PCR) SARS-CoV-2 RNA (RT-PCR) UPHOLSTERY INSTRUCTOR - A/P (1) PID (acute pelvic inflammatory disease): Status: Acute Assessment and Plan: Since objective findings are pointing towards clinical improvement including improvement in leukocytosis, no spike in temperature last 15 hours, pain scale i mproving and the patient requiring less than analgesics, will advance diet to regular, ambulate, keep on antibiotics and reassess in the morning if the improvement continues consider discharge tomorrow as long as there is no fever for 24-36 hours and patient's pain scale keeps on improving, and the abdominal exam is within normal Ambulate as tolerated Discussed the case with the patient , all questions answered, the patient verbalized understanding Time Spent With Patient Time: Total time spent is greater than 50% in coordination of care (as documented) at patient's floor/unit and/or counseling patient: Time with patient: 15 - 24 minutes
--- NOTE | 2021-03-30 14:04 | P.EN_ITS ---
Event Note Date of Service: 03/30/21 Event Note: Received a call stating that Lisa is feeling much better, has not taken any pain medication since 07:00, woke up for her nap after taking regular diet pain-free and is requesting to go home since it is [facility], [place]. Stable vital signs afebrile, max yesterday at 20:49 at 100.4 Assessment: PID Plan: Recommended for the patient to stay for the 2nd dose of ceftriaxone around 20:00, with scheduled doses for doxycycline and Flagyl around the same time, if the patient by then still pain free afebrile, will discharge home on p.o. doxycycline 100 mg p.o. b.i.d. and Flagyl 500 mg p.o. b.i.d. for 14 days, ibuprofen 600 mg p.o. Q 6-8 p.r.n. pain. The patient would have received antibiotics for 24 hours has been afebrile for 24 hours and has improved markedly to be given to patient to check her temperature every 8 hours, and call or come back to the emergency room in case of recurrence of her pain, procedure above 100.4. and follow-up in the office 3 days
[2021-03-30 15:34] VITALS: BP 135/70; PULSE 95; RESP 16; O2SAT 99
[2021-03-30 17:44] VITALS: BP 116/68; PULSE 90; RESP 16; O2SAT 98
[2021-03-30 19:22] VITALS: BP 118/58; PULSE 94; RESP 16; TEMP 36.8; O2SAT 97
--- NOTE | 2021-03-30 19:24 | PC.NURSE ---
Pharmacy contacted regarding PM medications. VSS at this time, pain states she is pain free.
[2021-03-30] MEDS: cefTRIAXone sodium 1 GM in 0.9 % Sodium Chloride 50 ML IV (20:04)
--- NOTE | 2021-03-30 20:11 | PC.NURSE ---
Pt medicated per JUN. Provided with DC paperwork. Aware of plan to DC once ABX complete.
== END 2021-03-30 20:42 | disposition home or self-care (01) ==
LOC: HO.ED 23:35 → HO.EDOVER 03-30 01:33
PROVIDERS: Admitting Provider Obstetrics & Gynecology; Emergency Provider Internal Medicine; PCP Internal Medicine; Visit Provider Obstetrics & Gynecology
DX: N73.0 Acute parametritis and pelvic cellulitis (principal); N83.201 Unspecified ovarian cyst, right side; N70.11 Chronic salpingitis; E66.9 Obesity, unspecified; Z68.41 Body mass index [BMI] 40.0-44.9, adult; Z20.822 Contact with and (suspected) exposure to COVID-19; Z79.3 Long term (current) use of hormonal contraceptives
CPT/HCPCS: 0241U; 36415; 76856; 80048; 83605; 85025; 87040; 96361; 96365; 96375; 99218; 99285; J0696; J1170; J1885; J2405

== ENCOUNTER → 2021-04-04 11:24 | Outpatient (BNVA) | payer OTHER, SELFPAY | PROVIDERS: PCP Internal Medicine; Visit Provider Obstetrics & Gynecology ==

== ENCOUNTER 2021-07-09 10:59 | Outpatient (REF) | payer OTHER, SELFPAY ==
--- NOTE | ~2021-07-09 | US_ITS ---
EXAMINATION: US PELVIC AND TRANSVAGINAL CLINICAL INFORMATION: Ovarian cysts. COMPARISON: Pelvic ultrasound 03/28/2021 TECHNIQUE: Ultrasound of the pelvis is performed using both transabdominal and transvaginal transducers along with Doppler. Transvaginal imaging is performed due to inadequate visualization transabdominally. FINDINGS: Uterus: The uterus is anteverted and measures 10.6 x 4.1 x 5.3 cm. The double wall endometrial thickness is 0.7 mm. An IUD is present in the uterus in good position. The uterus is smooth in contour and has normal myometrial echogenicity. No visible fibroid. Adnexa: Both ovaries are visualized. There is normal color-flow to the adnexa. There is no ovarian torsion. There is no pelvic ascites or fluid collection. Right ovary measures 4.1 x 2.2 x 2.9 cm for a volume of 13.7 mL and contains a 1.5 cm follicular cyst. Left ovary measures 4.9 x 4.3 x 4.3 cm for a volume of 47.4 mL which includes a 3.4 x 2.9 x 3.3 cm cyst. Normal arterial and venous Doppler signal is present in both ovaries. Superior to the uterus in the midline is another cystic structure seen at the time of the prior exam measuring 5.2 x 4.9 x 6.7 cm (previously 7.9 x 7.3 x 8.6 cm). US/US pelvic and transvaginal IMPRESSION: Bilateral ovarian cysts. The large midline cyst anterior to the uterus seen previously has decreased in size, as described above.
== END 2021-07-09 11:00 | disposition home or self-care (01) ==
LOC: HO.US 10:59
PROVIDERS: Visit Provider Obstetrics & Gynecology
DX: N83.209 Unspecified ovarian cyst, unspecified side (principal)
CPT/HCPCS: 76830; 76856

== ENCOUNTER → 2021-07-24 13:42 | Outpatient (BNVA) | payer OTHER, SELFPAY | PROVIDERS: Visit Provider Obstetrics & Gynecology | DX: Z13.89 Encounter for screening for other disorder (principal) ==

== ENCOUNTER 2021-08-16 00:59 | Outpatient (REF) | payer OTHER, SELFPAY ==
[2021-08-16 01:21] LABS: Hematocrit 38.9 % (37.0-47.0); Hemoglobin 12.2 g/dl (12.0-16.0); Mean Corpuscular HGB Conc 31.4 g/dl (31.0-35.0); Mean Corpuscular Hemoglobin 25.7 pg (27.0-33.0); Mean Corpuscular Volume 82.1 fL (80.0-98.0); Mean Platelet Volume 9.6 fL (9.4-12.3); Platelet Count 400 X10*3/uL (160-400); Red Blood Count 4.74 X10*6/uL (4.20-5.50); Red Cell Distribution Width 15.3 % (11.0-16.0); White Blood Count 11.1 X10*3/uL (4.8-10.8)
[2021-08-16 01:36] LABS: Iron 39 mcg/dL (30-160); Percent Iron Saturation 13 % (15-50); Total Iron Binding Capacity 306 mcg/dL (228-428); Unsaturated Iron Binding 267 ug/dL
[2021-08-16 01:57] LABS: Ferritin 44 ng/mL (10-122); TSH reflex Free T4 1.29 uIU/mL (0.32-4.0)
== END 2021-08-16 01:00 | disposition home or self-care (01) ==
LOC: HO.LAB 00:59
PROVIDERS: Visit Provider Internal Medicine
DX: D64.9 Anemia, unspecified (principal); R53.1 Weakness
CPT/HCPCS: 36415; 82728; 83540; 84443; 85027

== ENCOUNTER 2022-03-06 14:51 | Outpatient (REF) | payer OTHER, SELFPAY ==
--- NOTE | ~2022-03-06 | US_ITS ---
EXAMINATION: US PELVIS CLINICAL INFORMATION: Right ovarian cyst follow up. COMPARISON: 07/09/2021 and studies dating back to 04/05/2019. TECHNIQUE: Ultrasound of the pelvis is performed using both transabdominal and transvaginal transducers along with Doppler. Transvaginal imaging is performed due to inadequate visualization transabdominally. FINDINGS: UTERUS: The uterus is anteverted and measures 8.2 x 4.5 x 5.0 cm. IUD is seen in place. No abnormal thickening is appreciated. The uterus is smooth in contour and has normal myometrial echogenicity. No visible fibroid. ADNEXA: Both ovaries are visualized. There is normal color flow to the adnexa. There is no ovarian torsion. There is no pelvic ascites or fluid collection. Right ovary measures 3.2 x 2.5 x 2.6 cm. There is again noted to be a dominant cyst measuring 4.2 x 3.4 x 4.9 cm in size which previously measured 5.1 x 5.0 x 6.7 cm in size and prior to this has measured greater than 7 cm in diameter. This has the appearance of a simple cyst. Left ovary measures 3.8 x 2.3 x 1.9 cm. Volume of 8.7 mL. No suspicious findings. US/US pelvic and transvaginal IMPRESSION: Right ovarian cyst with maximum dimension of 4.9 cm for which followup is not considered necessary at this point.
== END 2022-03-06 14:52 | disposition home or self-care (01) ==
LOC: HO.US 14:51
PROVIDERS: Visit Provider Obstetrics & Gynecology
DX: N83.209 Unspecified ovarian cyst, unspecified side (principal)
CPT/HCPCS: 76830; 76856

== ENCOUNTER 2022-04-19 21:12 | Outpatient (REF) | payer OTHER, SELFPAY ==
[2022-04-19 21:37] LABS: COVID-19 Test Negative (Negative); IDNOW Serial# 55D5AD1C
== END 2022-04-19 21:13 | disposition home or self-care (01) ==
LOC: HO.LAB 21:12
PROVIDERS: Visit Provider Internal Medicine
DX: Z20.822 Contact with and (suspected) exposure to COVID-19 (principal)
CPT/HCPCS: 87635

== ENCOUNTER → 2022-10-29 08:17 | Outpatient (BNVA) | payer OTHER, SELFPAY | PROVIDERS: PCP Internal Medicine; Visit Provider Physician Assistant Surgical ==

== ENCOUNTER 2022-11-26 10:28 | Outpatient (AMB) | payer OTHER, SELFPAY ==
--- NOTE | 2022-11-26 10:32 | MHC.OFFVISWM ---
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 She heard about our program by working at [facility] in ED. Her goal is to lose weight and achieve a healthy lifestyle. She reports first being concerned about her weight 3 years ago, highest weight to date was 330. Current weight is 330.6 pounds with a BMI of 51.8. She has tried multiple methods of weight loss including weight watchers without permanent results. She lives with her parents and son. 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 She works overnights, 11 pm - 7 am Work days sleeps 730 am -1030 am and then again at 830 pm-1030 pm Dinner at 11 pm Non work days wakes at 7 am and sleeps at 8 pm with dinner at 6 pm Breakfast: 2 HB eggs, yogurt AM snack: muffins, goldfish, cheese and crackers, pepperoni Lunch: skip PM snack: same Dinner: shrimp, steak tacos, After dinner: ice cream Other snacks: as above Liquids: 64 oz water, 8 oz billy igor 4 x per week, 32 oz cran-apple juice daily Alcohol/marijuana/tobacco intake: rare, etoh, no cannabis, no tobacco Exercise: walking 2 x per week, gym membership to [employer] GERD score: 7 SAEID score: 0 ESS score: 9 QOL score: 89 PFSH Surgical History No history of previous surgery Family History Maternal Grandmother HTN (hypertension) Paternal Grandmother HTN (hypertension) Diabetes mellitus Paternal Grandfather HTN (hypertension) Diabetes mellitus Alzheimer disease Maternal Aunt Breast cancer Paternal Aunt Breast cancer Social History Alcohol intake: current Alcohol intake frequency: holidays/special occasions only Patient Tobacco Use Status: Never used Tobacco service: No Current occupational status: employed Gender identity: Female Female Reproductive History Menstrual Age of Menarche: 10 Review of Systems Const All systems reviewed & are unremarkable except as noted in HPI and below Physical Exam Vital Signs: Last Vital Signs Temp 97.6 F 11/26/22 10:38 Pulse 96 11/26/22 10:38 BP 132/69 11/26/22 10:38 Pulse Ox 97 11/26/22 10:38 Oxygen Delivery Method Room Air 11/26/22 10:38 BMI result Body Mass Index 51.8 Const General: cooperative, healthy appearing and no acute distress Orientation/consciousness: patient oriented x3 HEENT Head: Yes normal to inspection Ears: hearing grossly normal bilaterally General nose exam: Normal external nose present Face and sinus: Yes normal facial exam Eyes General: appearance normal, both eyes and all related structures Resp Effort & Inspection: normal respiratory effort Auscultation: clear to auscultation bilaterally Cardio Rate: regular rate Rhythm: regular rhythm Heart sounds: S1 normal heart sound present and S2 normal heart sound present GI Inspection: Yes normal to inspection, No distended and Yes obesity Palpation (GI): Soft to palpation, nontender and no guarding Auscultation: normal bowel sounds Skin General skin exam: no rashes or lesions noted Neuro General: patient oriented x3 Extrem General: No edema Psych Appearance: grossly normal Mental Status: mental status grossly normal Speech and movement: Normal speech and movement present Affect: normal affect Attitude: cooperative Assessment & Plan Assessment & Plan (1) Morbid obesity: Code(s): E66.01 - Morbid (severe) obesity due to excess calories Plan: This is a?32 yo female who will start our SWL program to prepare for bariatric surgery.? Blood work, h pylori , CXR, ECG, Abd US and UGI have been ordered. She is being scheduled for RD and BH initial consultations. She will start SWL classes and watch the first three videos before her next appointment. ? Adequate sleep of 7-8 hours per night discussed ? Purchase body composition analyzer scale (Suzie sterling or Alfonso recommended) and check weight weekly. The best time to do this is first thing in the morning after going to the bathroom. 1. Nutritional counseling: Be sure to careful read the number of scoops per shake Work days: Start with 3 Organ shakes ([employer], [employer], [facility]), First shake (2 scoops in 8 oz low fat unsweetened almond milk or water) at 11am-1pm Second shake (2 scoops in 8 oz low fat unsweetened almond milk or water) at 3pm-5pm 1 protein bar (Zone Perfect bars at [employer], [facility], or [employer]) at 6pm-8pm. Dinner at 11pm (10 forks of protein and 10 forks of salad/vegetables). Meal to include lean meat (beef, fish, pork, turkey, chicken), cooked vegetables or a salad with olive oil and/or fruits (berries, pears, apples, kiwi). Avoid salt, breads, potatoes, rice, pasta, desserts. Another shake with 1 scoop in 8 oz unsweetened almond milk at 1am-3am. 1 protein bar (Zone Perfect bars at [employer], [facility], or [employer]) at 4am-6am. Non work days: Start with 3 Orgain shakes ([employer], [employer], [facility]) First shake (2 scoops in 8 oz low fat unsweetened almond milk or water) at 7am-9am, Second shake (2 scoops in 8 oz low fat unsweetened almond milk or water) 10am-12pm 1 protein bar (Zone Perfect or fulfil bars at [employer], [facility], or [employer]) at 1pm-3pm. Last shake (1 scoop in 8 oz unsweetened almond milk or water) at 4pm-6pm Dinner at 6pm (12 forks of protein and 12 forks of salad/vegetables). Meal to include lean meat (beef, fish, pork, turkey, chicken), cooked vegetables or a salad with olive oil and/or fruits (berries, pears, apples, kiwi). Avoid salt, breads, potatoes, rice, pasta, desserts. Try to drink 64 oz of water daily and avoid soda and juices. ?2. Each shake would be drunk slowly, like coffee in a period of 2 hours. ?3. Cut each bar in 4 pieces and eat each piece in 30 min ?to make each bar last 2 hours. ?4. I emphasized the importance of measuring accurately the food portion and measure it carefully when serving the food on the plate ?5. The meal portions include 10-12 full-size forks of meat and 10-12 full-size forks of salad depending on work or non-work days. You always eat the meat portion but you can replace up to half of the forks of salad/vegetables with rice, potatoes or pasta, or a fruit ?if you like. The less you do it the better weight loss will be. ?6. One full-size fork is what can be scooped on the fork without falling aside and not what can be bit with the fork. Use regular forks like those you find in a typical restaurant. ?7.? Please send me weight measurements as soon as possible and then once a week. Always include your diet and exercise plan. Alternatively come weekly at the office for weight checks and send me the measurements. ?8. Exercise counseling: Begin by watching a stretching for beginners video. Start slowly and begin to stretch your muscles. You should do this before and after each exercise session to prevent injury. Please go to [facility] gym near your home. Ask the environmental conflict manager or one of the trainers how to use the machines if you are unfamiliar with them. Start elliptical with a resistance of 2. Increase resistance by 1 every 3 min to your most comfortable resistance with a max resistance of 8. Reduce the resistance by 1 every 3 minutes back down to 2 and repeat cycles for 300 calories. Alternatively, start treadmill with a speed of 3.0 and incline of 0, increasing incline by 1 every 3 minutes to the highest comfortable level (max 6 for now) then decrease in the same fashion. Repeat process to a goal of 300 calories. Goal of 2000 calories burned or more weekly. You may also consider use of the stationary bike. The easiest would be to chose the fat-burn or interval training program on the machine and do this until you reach the 300 calorie goal. Alternatively, you can manually adjust the resistance in a similar fashion as mentioned above, (resistance of 2-8 with a goal speed of 12 mph). Tracking calories is essential. 9. Alternatively start walking outside daily, tracking calories with a goal of 300 calories per day, daily. You can download the kinza Jalbum which can track your time, distance and calories while walking outside. You press start in the kinza when you start and then stop when you are finished. 10.? It is important to avoid for at least 18 months postoperatively and it has been discussed at the information session 11. Please get labs, EKG and chest X-Ray within 1 week. 12. Discussed and answered all questions regarding?obtained consent to participate in the [place] [facility]?Registry. 13. Please follow the diet plan exactly, without any change. If you do not like something about the plan or you feel hungry, you need to communicate with me so I can help you revise the plan. You should not change the plan yourself. Text me at [phone] 14. Goal is to lose at least 12 pounds in the first month 15. Goal is to lose 10% of your weight before surgery, which is about 33 lbs. Ultimate weight goal: 297 lbs before surgery Patient is morbidly obese and is not considered stable at this time.?I spent a total of 70 minutes reviewing/updating records, examining the patient and counseling the patient on weight management as detailed above. Orders: Orders Vitamin B12 and Folate Today E66.01 - Morbid (severe) obesity due to excess calories Comprehensive Met. Panel Today E66.01 - Morbid (severe) obesity due to excess calories C Reactive Protein Today E66.01 - Morbid (severe) obesity due to excess calories Ferritin Today E66.01 - Morbid (severe) obesity due to excess calories Hemoglobin A1c Today E66.01 - Morbid (severe) obesity due to excess calories Insulin Today E66.01 - Morbid (severe) obesity due to excess calories IRON PROFILE Today E66.01 - Morbid (severe) obesity due to excess calories Lipid Panel Today E66.01 - Morbid (severe) obesity due to excess calories PTHI Today E66.01 - Morbid (severe) obesity due to excess calories TSH reflex Free T4 Today E66.01 - Morbid (severe) obesity due to excess calories Vitamin A Today E66.01 - Morbid (severe) obesity due to excess calories Vitamin B1 Today E66.01 - Morbid (severe) obesity due to excess calories Vitamin D 25-OH Total Today E66.01 - Morbid (severe) obesity due to excess calories Zinc Today E66.01 - Morbid (severe) obesity due to excess calories ECG 12 lead EKG Today E66.01 - Morbid (severe) obesity due to excess calories FL upper GI w air Today E66.01 - Morbid (severe) obesity due to excess calories Complete Blood Count Auto Diff Today E66.01 - Morbid (severe) obesity due to excess calories H Pylori Breath Test Today E66.01 - Morbid (severe) obesity due to excess calories US abdomen comp w elastography Today E66.01 - Morbid (severe) obesity due to excess calories XR chest 2V Today E66.01 - Morbid (severe) obesity due to excess calories Referrals Behavioral Health Referral E66.01 - Morbid (severe) obesity due to excess calories Nutrition/Dietitian Referral E66.01 - Morbid (severe) obesity due to excess calories Coding Level of Care Code New Pt Level 5 (71169) Diagnoses Morbid obesity E66.01 Time Spent (min) 70
[2022-11-26 10:38] VITALS: BP 132/69; PULSE 96; TEMP 36.4; O2SAT 97; BMI 51.8
== END 2022-11-26 12:21 | disposition home or self-care (01) ==
PROVIDERS: PCP Internal Medicine; Visit Provider Physician Assistant Surgical
DX: E66.01 Morbid (severe) obesity due to excess calories (principal)
CPT/HCPCS: 99205

== ENCOUNTER → 2022-11-26 10:28 | Outpatient (BNVA) | payer OTHER, SELFPAY | PROVIDERS: PCP Internal Medicine; Visit Provider Physician Assistant Surgical ==

== ENCOUNTER 2022-12-02 07:44 | Outpatient (REF) | payer OTHER, SELFPAY ==
[2022-12-02 08:00] LABS: MANUAL DIFF FLAG NO
[2022-12-02 08:22] LABS: Basophils Absolute Auto 0.1 X10*3/uL (0.0-0.2); Basophils Percent Auto 0.5 % (0-2); Eosinophils Absolute Auto 0.2 X10*3/uL (0.0-0.4); Eosinophils Percent Auto 1.9 % (0-4); Hematocrit 39.7 % (37.0-47.0); Hemoglobin 12.3 g/dl (12.0-16.0); Imm Gran Abs Auto 0.02 X10*3/uL (0.00-0.03); Imm Gran Pct Auto 0.2 % (0.0-0.4); Lymphocytes Absolute Auto 2.8 X10*3/uL (1.2-4.9); Lymphocytes Percent Auto 29.4 % (20-40); Mean Corpuscular Hemoglobin 26.6 pg (27.0-33.0); Mean Corpuscular Volume 85.7 fL (80.0-98.0); Mean Platelet Volume 9.7 fL (9.4-12.3); Monocytes Absolute Auto 0.6 X10*3/uL (0.1-1.2); Monocytes Percent Auto 6.4 % (2-11); Neutrophils Absolute Auto 5.8 x10*3/uL (2.0-8.3); Neutrophils Percent Auto 61.6 % (45-73); Platelet Count 361 X10*3/uL (160-400); Red Blood Count 4.63 X10*6/uL (4.20-5.50); Red Cell Distribution Width 15.2 % (11.0-16.0); White Blood Count 9.5 X10*3/uL (4.8-10.8)
[2022-12-02 08:24] LABS: Estimated Average Glucose 103 mg/dL; Hemoglobin A1c % 5.2 % (<6.0)
[2022-12-02 09:12] LABS: Alanine Aminotransferase 28 U/L (0-31); Albumin Level 3.9 g/dL (3.5-5.0); Alkaline Phosphatase 60 U/L (39-117); Anion Gap 11 (12-20); Aspartate Amino Transferase 24 U/L (5-31); Bilirubin Total 0.4 mg/dL (0.0-1.0); Blood Urea Nitrogen 11 mg/dL (9-16); C Reactive Protein 3.18 mg/dL (< or = 0.50); Calcium 9.2 mg/dL (8.4-10.2); Carbon Dioxide 26 mmol/L (22-29); Chloride 108 mmol/L (96-108); Cholesterol 167 mg/dL (<200); Estimated Glomerular Filt Rate > 60; Glucose Random 86 mg/dL (60-115); HDL Cholesterol 41 mg/dL (>40); Iron 39 mcg/dL (30-160); LDL Cholesterol Calculated 110 mg/dL (<100); Percent Iron Saturation 16 % (15-50); Potassium 3.9 mmol/L (3.3-5.1); Sodium 141 mmol/L (135-145); Total Iron Binding Capacity 251 mcg/dL (228-428); Total Protein 7.9 g/dL (6.5-8.0); Triglycerides 80 mg/dL (<150); Unsaturated Iron Binding 212 ug/dL
[2022-12-02 09:16] LABS: Ferritin 99 ng/mL (10-122); Insulin 12 uU/mL (2-29); TSH reflex Free T4 0.68 uIU/mL (0.32-4.0); Vitamin D 25-OH Total 17.4 ng/mL (>30)
[2022-12-02 09:32] LABS: Folate 11.1 ng/mL (> or = 4.0); Vitamin B12 357 pg/mL (200-900)
[2022-12-03 16:43] LABS: Calcium (PTHI) 8.9 mg/dL (8.6-10.2); PTHI 71 pg/mL (16-77)
[2022-12-05 00:53] LABS: Zinc 64 mcg/dL (60-130)
[2022-12-06 17:28] LABS: Vitamin B1 <6 nmol/L (8-30)
[2022-12-07 17:58] LABS: Vitamin A 33 mcg/dL (38-98)
== END 2022-12-02 07:45 | disposition home or self-care (01) ==
LOC: HO.LAB 07:44
PROVIDERS: PCP Internal Medicine; Visit Provider Physician Assistant Surgical
DX: E66.01 Morbid (severe) obesity due to excess calories (principal)
CPT/HCPCS: 36415; 80053; 80061; 82306; 82607; 82728; 82746; 83036; 83525; 83540; 83970; 84425; 84443; 84590; 84630; 85025; 86140

== ENCOUNTER → 2022-12-06 11:36 | Outpatient (REF) | payer OTHER, SELFPAY ==
--- NOTE | ~2022-12-06 | XR_ITS ---
EXAMINATION: XR CHEST CLINICAL INFORMATION: Morbid obesity. COMPARISON: None available. TECHNIQUE: 2 views of the chest were obtained. FINDINGS: The cardiomediastinal silhouette is normal. There is no focal lung consolidation or pleural effusion. The bony structures and soft tissues are unremarkable. XR/XR chest 2V IMPRESSION: No active cardiopulmonary disease.
--- NOTE | 2022-12-06 11:56 | ECG_ITS ---
Test Reason : obesity Blood Pressure : / mmHG Vent. Rate : 062 BPM Atrial Rate : 062 BPM P-R Int : 142 ms QRS Dur : 092 ms QT Int : 418 ms P-R-T Axes : 036 013 005 degrees QTc Int : 424 ms Normal sinus rhythm with sinus arrhythmia Normal ECG No previous ECGs available Referred By: [facility] Electronically Signed By:ARRON EDWARDS
== END ==
LOC: HO.CARD 11:36
PROVIDERS: PCP Internal Medicine; Visit Provider Physician Assistant Surgical
DX: E66.01 Morbid (severe) obesity due to excess calories (principal)
CPT/HCPCS: 71046; 93005

== ENCOUNTER 2022-12-19 10:33 | Outpatient (AMB) | payer OTHER, SELFPAY ==
--- NOTE | 2022-12-19 11:13 | A.OFFWM_ITS ---
Intake Intake Visit Reasons: (OV) BH Intake Allergies No Known Allergies [No Known Allergies*] Allergy (Verified 10/29/22 08:40) PFSH Surgical History No history of previous surgery Family History Maternal Grandmother HTN (hypertension) Paternal Grandmother HTN (hypertension) Diabetes mellitus Paternal Grandfather HTN (hypertension) Diabetes mellitus Alzheimer disease Maternal Aunt Breast cancer Paternal Aunt Breast cancer Social History Alcohol intake: current Alcohol intake frequency: holidays/special occasions only Patient Tobacco Use Status: Never used Tobacco service: No Current occupational status: employed Gender identity: Female Female Reproductive History Menstrual Age of Menarche: 10 Behavioral Health Assessment Weight Management Therapy Therapy Notes Details Pt is a 32 years old female, who presents for initial behavioral health assessment as part of surgical weight-loss program. Pt denied any history of mental health treatment and or past hospitalization/crisis for behavioral health. Denies any safety concerns around SI and/or self-other harm, also there is no history of substance use reported. PHQ- scores also showed no active symptoms/concerns with depression and Mental status exam is withing normal limits, suggesting person's functioning is not impaired. However, patient reports struggles with stress/emotional-eating, and scores from BES suggest moderate risk for binge eating behavior. Pt will follow up with provider in about amonth to get support with emotional eating and BES will be administered again. Presenting Concerns Referral Source [facility] Provider. Sees GIGI Ricci. Reason for referral Completion of behavioral health assessment as part of process for weight-loss surgery. Precipitating Event Obesity. Living Situation Current Living Situation Rent At risk of losing current housing? No Satisfied with current living situation? No Comments PT lives at her parents property. She lives with her 4 years old son. Food/Weight/Diet Expectations of change Pt main goal is to be healthy and be active with her son. Goal is to lose 10% of her weight before surgery, which is about 33 lbs. Ultimate weight goal: 297 lbs. before surgery History/Relationship with food Pt reports she's an emotional eater. If happy and celebrating will eat out, if sad will snack a lot, when stressed she anticipated and order prior the stressors to come. Started the meal mckeon and so far is doing well. Example of meals before starting program Breakfast: 7 am- eggs/susace/pancakes or a breakfast sandwich. Lunch: Sleeping/ wakes up around 2-3pm whatever is there but a form snacking as was not a formal meal. (goldfish/taxis/pizza/nuggets/pick on fruit) Dinner: around 7pm. Rice/beans/meat or pasta. Iraqi-Rican/ style Late meal: 11pm. Take out. Snacks: ongoing trough the day (bread, or anything around) . Started meal plan 3 weeks ago and so far is doing well. 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 History/Relationship with weight Started gaining weight at age 15. Was about 200Lbs by age 16. highest weight has been 333Lbs this year around October. In past 10 years her lowest weight has been around 240Lbs. History/Relationship with dieting Not carbs, weightwatchers multiple times, intermittent fasting. Started [facility] in 11/26. Binge Eating Do you frequently eat large amounts of food in short periods of time, not feeling physically hungry? No Do you feel out of control when you eat a large amount of food in a short period of time? No Do you eat large amounts of food rapidly and typically alone? No Night Eating Do you wake up at least once during the night to eat? Yes If you wake up in the night, do you find that it is necessary to eat something in order to fall back asleep? Yes Do you have little or no appetite in the morning and feel very hungry in the evening, often overeating between dinner and when you go to bed? Yes Social History Family history and relationship Pt is a relationship with son's father but they don't live together PArets are . 2 sisters. Very close relationships. 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 Developmental history and status None reported. Social support Boyfriend, best friends. Community support None. Quaker/Spirituality Raised as Rastafari. Cultural/Ethnic information . Mom Iraqi, Dad Dominican. Nigerian primary language. Legal Involvement and History Current or historical involvement with the legal system? None reported. Education Highest grade completed HS. Some college/started pre-requisites for nursing. Preferred learning style Learn by doing Currently enrolled in educational program? No Interested in further educational program? Yes Educational Interests/Skills wants to be a nurse. 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 ) Wants help to find employment? No Meaningful activities Reading, be outside, arts/crafts, painting. Financial Situation Describe current financial situation Comfortable Financial assistance? None Service Service? No Mental Health and Addiction Treatment Current/Past substance abuse? No Current/Past addictive behavior concerns? No Psychiatric history Denied any past MH treatment, crisis and/or hospitalization. Also denied any past/current concern with SI, SA self/other- harm. Pt reports she has experienced some anxiety and physical sickness when stressed due to unknow situations. Medical and Physical Health Summary Additional Medical History not covered in history None Sexual History concerns None Physical exam in the last year? No Pain Screening Current pain? No Pain in the last few months? Yes Comments Back pain. Medications Is the patient compliant with medications? Yes Does the patient have Evans Guardian in place? Not applicable Does the patient use complimentary health approaches? No Trauma/Abuse History History of trauma? No Questionnaires PHQ-9 Over the last 2 weeks, how often have you been bothered by any of the following problems? 1. Little interest or pleasure in doing things: not at all 2. Feeling down, depressed, or hopeless: not at all 3. Trouble falling or staying asleep, or sleeping too much: nearly every day (Job related. ) 4. Feeling tired or having little energy: not at all 5. Poor appetite or overeating: not at all 6. Feeling bad about yourself - or that you are a failure or have let yourself or your family down: not at all 7. Trouble concentrating on things, such as reading the newspaper or watching television: not at all 8. Moving or speaking so slowly that other people could have noticed. Or the opposite - being so fidgety or restless that you have been moving around a lot more than usual: not at all 9. Thoughts that you would be better off or of hurting yourself in some way: not at all Total score: 3 Depression Screening Interpretation: Negative [id number] - PHQ-9 Billing: Yes Source: Developed by Drs. Allan Canales, Kitty Hughes, Bryan Colmenares and colleagues, with an educational michael from [employer]. Binge Eating Scale Group 1 A. I don't feel self-conscious about my wt. or body size when I'm with others. B. I feel concerned about how I look to others, but it normally does not make me fell disappointed with myself C. I do get self-conscious about my appearance and wt. which makes me feel disappointed in myself. D. I feel very self-conscious about my wt. and frequently I feel intense shame and disgust for myself. I try to avoid social contacts because of my self- consciousness. Response Group 1: C Group 2 A. I don't have any difficulty eating slowly in the proper manner. B. Although I seem to gobble down foods, I don't end up feeling stuffed because of eating to much. C. At times, I tend to eat quickly and then, I feel uncomfortably full afterwards. D. I have the habit of bolting down my food, without really chewing it. When this happens I usually feel uncomfortably stuffed because I've eaten to much. Response Group 2: A Group 3 A. I feel capable to control my eating urges when I want to. B. I feel like I have failed to control my eating more than the average person. C. I feel utterly helpless when it comes to feeling in control of my eating urges. D. Because I feel so helpless about controlling my eating I have become very desperate about trying to get control. Response Group 3: C Group 4 A. I don't have the habit of eating when I'm bored. B. I sometimes eat when I'm bored, but often I'm able to get busy and get my mind off food. C. I have a regular habit of eating when I'm bored, but occasionally, I can use some other activity to get my mind off eating. D. I have a strong habit of eating when I'm bored. Nothing seems to help me breath the habit. Response Group 4: D Group 5 A. I'm usually physically hungry when I eat something. B. Occasionally, I eat something on impulse even though I really am not hungry. C. I have the regular habit of eating foods, that I might not really enjoy, to satisfy a hungry feeling even though physically, I don't need the food. D. Although I'm not physically hungry, I get a hungry feeling in my mouth that only seems to be satisfied when I eat a food, like sandwich, that fills my mouth. Sometimes, when I eat the food to satisfy my mouth hunger, I then spit the food out so I won't gain weight. Response Group 5: C Group 6 A. I don't feel any guilt or self-hate after I overeat. B. After I overeat, occasionally I feel guilt or self-hate. C. Almost all the time I experience strong guilt or self-hate after I overeat. Response Group 6: B Group 7 A. I don't lose total control of my eating when dieting even after periods when I overeat. B. Sometimes when I eat a forbidden food on a diet, I feel like I blew it and eat even more. C. Frequently, I have the habit of saying to myself, I've blown it now, why not go all the way, when I overeat on a diet. When that happens I eat more. D. I have a regular habit of starting a strict diets for myself but I break the diets by going on an eating binge. My life seems to be either a feast or famine. Response Group 7: C Group 8 A. I rarely eat so much food that I feel uncomfortably stuffed afterwards. B. Usually about once a month, I each such a quantity of food, I end up feeling very stuffed. C. I have regular periods during the month when I eat large amounts of food, either at mealtime or at snacks. D. I eat so much food that I regularly feel quite uncomfortable after eating and sometimes a bit nauseous. Response Group 8: C Group 9 A. My level of calorie intake does not go up very high or go down very low on a regular basis. B. Sometimes after I overeat, I will try to reduce my caloric intake to almost nothing to compensate for the excess calories I've eaten. C. I have a regular habit of overeating during the night. It seems that my routine is not to be hungry in the morning but overeat in the evening. D. In my adult years, I have had week-long periods where I practically starve myself. This follows periods when I overeat. It seems I live a life of either feast or famine. Response Group 9: C Group 10 A. I usually am able to stop eating when I want to. I know when enough is enough. B. Every so often, I experience a compulsion to eat which I can't seem to control. C. Frequently, I experience strong urges to eat which I seem unable to control, but at other times I can control my eating urges. D. I feel incapable of controlling urges to eat. I have a fear of not being able to stop eating voluntarily. Response Group 10: C Group 11 A. I don't have any problem stopping eating when I feel full. B. I usually can stop eating when I feel full but occasionally overeat leaving me feeling uncomfortably stuffed. C. I have a problem stopping eating once I start and usually I feel uncomfortably stuffed after I eat a meal. D. Because I have a problem not being able to stop eating when I want, I sometimes have to induce vomiting to relieve my stuffed feeling. Response Group 11: B Group 12 A. I seem to eat just as much when I'm with others, Family social gatherings as when I'm by myself. B. Sometimes, when I'm with other persons, I don't eat as much as I want to eat because I'm self-conscious about my eating. C. Frequently, I eat only a small amount of food when others are present, because I'm very embarrassed about my eating. D. I feel so ashamed about overeating that I pick times to overeat when I know no one will see me. I feel like a closet eater. Response Group 12: A Group 13 A. I eat three meals a day with only an occasional between meal snack. B. I eat 3 meals a day, but I also normally snack between meals. C. When I am snacking heavily, I get in the habit of skipping regular meals. D. There are regular periods when I seem to be continually eating, with no planned meals. Response Group 13: D Group 14 A. I don't think much about trying to control unwanted eating urges. B. At least some of the time, I feel my thoughts are pre-occupied with trying to control my eating urges. C. I feel that frequently I spend much time thinking about how much I ate or about trying not to eat anymore. D. It seems to me that most of my waking hours are pre-occupied by thoughts about eating or not eating. I feel like I'm constantly struggling not to eat. Response Group 14: B Group 15 A. I don't think about food a great deal. B. I have strong craving for food but they last only for brief periods of time. C. I have days when I can't seem to think about anything else but food. D. Most of my days seem to be pre-occupied with thoughts about food. I feel like I live to eat. Response Group 15: B Group 16 A. I usually know whether or not I'm physically hungry. I take the right portion of food to satisfy me. B. Occasionally, I feel uncertain about knowing whether or not I'm physically hungry. A these times it's hard to know how much food I should take to satisfy me. C. Even though I might know how many calories I should eat, I don't have any idea what is a normal amount of food for me. Response Group 16: B Binge Eating Score: 25 Score less than 17 Minimal Risk Score between 18-26 Moderate Risk Score between 27-46 High Risk Assessment & Plan Assessment & Plan (1) Morbid obesity: Code(s): E66.01 - Morbid (severe) obesity due to excess calories (2) Adjustment disorder: Code(s): F43.20 - Adjustment disorder, unspecified Qualifiers: Adjustment disorder type: unspecified type Qualified Code(s): F43.20 - Adjustment disorder, unspecified Plan PT cleared today, but will be seen 1-3 times for support with emotional eating and cravings. BES will be repeated due to high scores. f/up in 3-4 weeks. Next kinza: 01/08/23 at 11am via telehealth. Coding Level of Care Code New Pt Psy Diag Eval (34260) Patient Type New Diagnoses Morbid obesity E66.01 Adjustment disorder, unspecified type F43.20 Adjustment disorder type: unspecified type Time Spent (min) 60
== END 2022-12-19 12:34 | disposition home or self-care (01) ==
PROVIDERS: PCP Internal Medicine; Referring Provider Physician Assistant Surgical; Visit Provider Counselor Mental Health
DX: E66.01 Morbid (severe) obesity due to excess calories (principal); F43.20 Adjustment disorder, unspecified
CPT/HCPCS: 90791

== ENCOUNTER → 2022-12-19 10:33 | Outpatient (BNVA) | payer OTHER, SELFPAY | PROVIDERS: PCP Internal Medicine; Referring Provider Physician Assistant Surgical; Visit Provider Counselor Mental Health ==

== ENCOUNTER → 2022-12-24 15:13 | Outpatient (BNVA) | payer OTHER, SELFPAY | PROVIDERS: PCP Internal Medicine; Referring Provider Physician Assistant Surgical; Visit Provider Dietitian, Registered | DX: E66.9 Obesity, unspecified (principal); Z68.43 Body mass index [BMI] 50.0-59.9, adult; Z71.3 Dietary counseling and surveillance | CPT/HCPCS: 97802 ==

== ENCOUNTER 2023-01-08 11:14 | Outpatient (AMB) | payer OTHER, SELFPAY ==
--- NOTE | 2023-01-08 11:06 | MHC.WMTHER ---
Intake Intake Visit Reasons: VIDEO F/U Allergies No Known Allergies [No Known Allergies*] Allergy (Verified 10/29/22 08:40) PFSH Surgical History No history of previous surgery Family History Maternal Grandmother HTN (hypertension) Paternal Grandmother HTN (hypertension) Diabetes mellitus Paternal Grandfather HTN (hypertension) Diabetes mellitus Alzheimer disease Maternal Aunt Breast cancer Paternal Aunt Breast cancer Social History Alcohol intake: current Alcohol intake frequency: holidays/special occasions only Patient Tobacco Use Status: Never used Tobacco service: No Current occupational status: employed Gender identity: Female Female Reproductive History Menstrual Age of Menarche: 10 Behavioral Health Assessment Weight Management Therapy Therapy Notes Details Pt presents for a f/up for support as part of surgical weight-loss plan. She has intake on 12/19 and has been cleared from standpoint. Today Pt reports been exercising 4 days at week, also been consistent with meal plan except for last week due to son being sick and getting out of her routine. But she has noticed she's more aware of her food choices and thoughts/struggles around food. We repeated BES, and scores were lower showing marked changed in eating habits and adjustment to program Provided client with strategies for mindful eating and managing/delaying urges for food, cravings and/or thoughts around food. Presenting Concerns Referral Source [facility] Provider. Sees GIGI Ricci. Reason for referral Completion of behavioral health assessment as part of process for weight-loss surgery. Precipitating Event Obesity. Living Situation Current Living Situation Rent At risk of losing current housing? No Satisfied with current living situation? No Comments PT lives at her parents property. She lives with her 4 years old son. Food/Weight/Diet Expectations of change Pt main goal is to be healthy and be active with her son. Goal is to lose 10% of her weight before surgery, which is about 33 lbs. Ultimate weight goal: 297 lbs. before surgery History/Relationship with food Pt reports she's an emotional eater. If happy and celebrating will eat out, if sad will snack a lot, when stressed she anticipated and order prior the stressors to come. Started the meal mckeon and so far is doing well. Example of meals before starting program Breakfast: 7 am- eggs/susace/pancakes or a breakfast sandwich. Lunch: Sleeping/ wakes up around 2-3pm whatever is there but a form snacking as was not a formal meal. (goldfish/taxis/pizza/nuggets/pick on fruit) Dinner: around 7pm. Rice/beans/meat or pasta. Monegasque-Rican/ style Late meal: 11pm. Take out. Snacks: ongoing trough the day (bread, or anything around) . Started meal plan 3 weeks ago and so far is doing well. 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 History/Relationship with weight Started gaining weight at age 15. Was about 200Lbs by age 16. highest weight has been 333Lbs this year around October. In past 10 years her lowest weight has been around 240Lbs. History/Relationship with dieting Not carbs, weightwatchers multiple times, intermittent fasting. Started WMP in 11/26. Binge Eating Do you frequently eat large amounts of food in short periods of time, not feeling physically hungry? No Do you feel out of control when you eat a large amount of food in a short period of time? No Do you eat large amounts of food rapidly and typically alone? No Night Eating Do you wake up at least once during the night to eat? Yes If you wake up in the night, do you find that it is necessary to eat something in order to fall back asleep? Yes Do you have little or no appetite in the morning and feel very hungry in the evening, often overeating between dinner and when you go to bed? Yes Social History Family history and relationship Pt is a relationship with son's father but they don't live together PArets are . 2 sisters. Very close relationships. 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 Developmental history and status None reported. Social support Boyfriend, best friends. Community support None. Voodoo/Spirituality Raised as Jainism. Cultural/Ethnic information . Mom Monegasque, Dad Libyan. Kiswahili primary language. Legal Involvement and History Current or historical involvement with the legal system? None reported. Education Highest grade completed HS. Some college/started pre-requisites for nursing. Preferred learning style Learn by doing Currently enrolled in educational program? No Interested in further educational program? Yes Educational Interests/Skills wants to be a nurse. 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 ) Wants help to find employment? No Meaningful activities Reading, be outside, arts/crafts, painting. Financial Situation Describe current financial situation Comfortable Financial assistance? None Service Service? No Mental Health and Addiction Treatment Current/Past substance abuse? No Current/Past addictive behavior concerns? No Psychiatric history Denied any past MH treatment, crisis and/or hospitalization. Also denied any past/current concern with SI, SA self/other-harm. Pt reports she has experienced some anxiety and physical sickness when stressed due to unknow situations. Medical and Physical Health Summary Additional Medical History not covered in history None Sexual History concerns None Physical exam in the last year? No Pain Screening Current pain? No Pain in the last few months? Yes Comments Back pain. Medications Is the patient compliant with medications? Yes Does the patient have Evans Guardian in place? Not applicable Does the patient use complimentary health approaches? No Trauma/Abuse History History of trauma? No Questionnaires Binge Eating Scale Group 1 A. I don't feel self-conscious about my wt. or body size when I'm with others. B. I feel concerned about how I look to others, but it normally does not make me fell disappointed with myself C. I do get self-conscious about my appearance and wt. which makes me feel disappointed in myself. D. I feel very self-conscious about my wt. and frequently I feel intense shame and disgust for myself. I try to avoid social contacts because of my self-consciousness. Response Group 1: C Group 2 A. I don't have any difficulty eating slowly in the proper manner. B. Although I seem to gobble down foods, I don't end up feeling stuffed because of eating to much. C. At times, I tend to eat quickly and then, I feel uncomfortably full afterwards. D. I have the habit of bolting down my food, without really chewing it. When this happens I usually feel uncomfortably stuffed because I've eaten to much. Response Group 2: A Group 3 A. I feel capable to control my eating urges when I want to. B. I feel like I have failed to control my eating more than the average person. C. I feel utterly helpless when it comes to feeling in control of my eating urges. D. Because I feel so helpless about controlling my eating I have become very desperate about trying to get control. Response Group 3: B (Before C. Last week was triggering!) Group 4 A. I don't have the habit of eating when I'm bored. B. I sometimes eat when I'm bored, but often I'm able to get busy and get my mind off food. C. I have a regular habit of eating when I'm bored, but occasionally, I can use some other activity to get my mind off eating. D. I have a strong habit of eating when I'm bored. Nothing seems to help me breath the habit. Response Group 4: A (Before D.) Group 5 A. I'm usually physically hungry when I eat something. B. Occasionally, I eat something on impulse even though I really am not hungry. C. I have the regular habit of eating foods, that I might not really enjoy, to satisfy a hungry feeling even though physically, I don't need the food. D. Although I'm not physically hungry, I get a hungry feeling in my mouth that only seems to be satisfied when I eat a food, like sandwich, that fills my mouth. Sometimes, when I eat the food to satisfy my mouth hunger, I then spit the food out so I won't gain weight. Response Group 5: A (Before C. ) Group 6 A. I don't feel any guilt or self-hate after I overeat. B. After I overeat, occasionally I feel guilt or self-hate. C. Almost all the time I experience strong guilt or self-hate after I overeat. Response Group 6: B (Also using more positive self-talk if this happens.) Group 7 A. I don't lose total control of my eating when dieting even after periods when I overeat. B. Sometimes when I eat a forbidden food on a diet, I feel like I blew it and eat even more. C. Frequently, I have the habit of saying to myself, I've blown it now, why not go all the way, when I overeat on a diet. When that happens I eat more. D. I have a regular habit of starting a strict diets for myself but I break the diets by going on an eating binge. My life seems to be either a feast or famine. Response Group 7: A (C before.) Group 8 A. I rarely eat so much food that I feel uncomfortably stuffed afterwards. B. Usually about once a month, I each such a quantity of food, I end up feeling very stuffed. C. I have regular periods during the month when I eat large amounts of food, either at mealtime or at snacks. D. I eat so much food that I regularly feel quite uncomfortable after eating and sometimes a bit nauseous. Response Group 8: A (C before. C before. Haven't overeat or feel stuffed since started the program. ) Group 9 A. My level of calorie intake does not go up very high or go down very low on a regular basis. B. Sometimes after I overeat, I will try to reduce my caloric intake to almost nothing to compensate for the excess calories I've eaten. C. I have a regular habit of overeating during the night. It seems that my routine is not to be hungry in the morning but overeat in the evening. D. In my adult years, I have had week-long periods where I practically starve myself. This follows periods when I overeat. It seems I live a life of either feast or famine. Response Group 9: A (C before.) Group 10 A. I usually am able to stop eating when I want to. I know when enough is enough. B. Every so often, I experience a compulsion to eat which I can't seem to control. C. Frequently, I experience strong urges to eat which I seem unable to control, but at other times I can control my eating urges. D. I feel incapable of controlling urges to eat. I have a fear of not being able to stop eating voluntarily. Response Group 10: A (C before.) Group 11 A. I don't have any problem stopping eating when I feel full. B. I usually can stop eating when I feel full but occasionally overeat leaving me feeling uncomfortably stuffed. C. I have a problem stopping eating once I start and usually I feel uncomfortably stuffed after I eat a meal. D. Because I have a problem not being able to stop eating when I want, I sometimes have to induce vomiting to relieve my stuffed feeling. Response Group 11: A Group 12 A. I seem to eat just as much when I'm with others, Family social gatherings as when I'm by myself. B. Sometimes, when I'm with other persons, I don't eat as much as I want to eat because I'm self-conscious about my eating. C. Frequently, I eat only a small amount of food when others are present, because I'm very embarrassed about my eating. D. I feel so ashamed about overeating that I pick times to overeat when I know no one will see me. I feel like a closet eater. Response Group 12: A Group 13 A. I eat three meals a day with only an occasional between meal snack. B. I eat 3 meals a day, but I also normally snack between meals. C. When I am snacking heavily, I get in the habit of skipping regular meals. D. There are regular periods when I seem to be continually eating, with no planned meals. Response Group 13: A (Following meal plan (2 shakes, 1 meal and 1 bar)) Group 14 A. I don't think much about trying to control unwanted eating urges. B. At least some of the time, I feel my thoughts are pre-occupied with trying to control my eating urges. C. I feel that frequently I spend much time thinking about how much I ate or about trying not to eat anymore. D. It seems to me that most of my waking hours are pre-occupied by thoughts about eating or not eating. I feel like I'm constantly struggling not to eat. Response Group 14: B Group 15 A. I don't think about food a great deal. B. I have strong craving for food but they last only for brief periods of time. C. I have days when I can't seem to think about anything else but food. D. Most of my days seem to be pre-occupied with thoughts about food. I feel like I live to eat. Response Group 15: B (Still happens when getting together with friends. ) Group 16 A. I usually know whether or not I'm physically hungry. I take the right portion of food to satisfy me. B. Occasionally, I feel uncertain about knowing whether or not I'm physically hungry. A these times it's hard to know how much food I should take to satisfy me. C. Even though I might know how many calories I should eat, I don't have any idea what is a normal amount of food for me. Response Group 16: A (B Before.) Binge Eating Score: 6 (Lower scores today. Before scored 25.) Score less than 17 Minimal Risk Score between 18-26 Moderate Risk Score between 27-46 High Risk Assessment & Plan Assessment & Plan (1) Morbid obesity: Code(s): E66.01 - Morbid (severe) obesity due to excess calories (2) Adjustment disorder: Code(s): F43.20 - Adjustment disorder, unspecified Plan PT cleared. F/up for support in 4-5 weeks. Next kinza: 02/10/23 @12 Telehealth Telehealth Location of provider rendering services: other Location of patient: address on file Patient Identification confirmed using: Name, : Yes Telehealth method: video Patient verbally consented to treatment: Yes Patient verbally consented to billing insurance company: Yes Patient informed of any privacy concerns related to visit: Yes Minutes spent on Phone/Video with Pt.: 45 Coding Level of Care Code Established Pt Psytx 45 mins ([id number]) Patient Type Established Diagnoses Morbid obesity E66.01 Adjustment disorder F43.20 Time Spent (min) 45
== END 2023-01-08 12:00 | disposition home or self-care (01) ==
LOC: HO.HBST 11:14
PROVIDERS: PCP Internal Medicine; Visit Provider Counselor Mental Health
DX: E66.01 Morbid (severe) obesity due to excess calories (principal); F43.20 Adjustment disorder, unspecified
CPT/HCPCS: 90834

== ENCOUNTER → 2023-01-08 11:14 | Outpatient (BNVA) | payer OTHER, SELFPAY | PROVIDERS: PCP Internal Medicine; Visit Provider Counselor Mental Health ==

== ENCOUNTER 2023-01-16 12:51 | Emergency (ER) | payer OTHER, SELFPAY ==
--- NOTE | ~2023-01-16 | US_ITS ---
EXAMINATION: US PELVIS CLINICAL INFORMATION: Severe pain. COMPARISON: Pelvic ultrasound from 03/28/2021 and 03/06/2022. TECHNIQUE: Ultrasound of the pelvis is performed using both transabdominal and transvaginal transducers along with Doppler. Transvaginal imaging is performed due to inadequate visualization transabdominally. FINDINGS: UTERUS AND CERVIX The anteflexed, anteverted uterus measures 8.2 x 4.6 x 5.9 cm ([id number] x AP x transverse dimension). The myometrial echotexture is normal. No evidence of leiomyoma. Contraceptive device is well centered within the endometrium (images 55-61 of 121). The endometrium is normal; it measures up to 0.9 cm AP thickness. ADNEXA: The right ovary appears to be chronically enlarged; it measures 6.1 x 2.5 x 3.1 cm and, overall, is similar in appearance compared to 03/28/2021. Color Doppler images with spectral waveforms show presence of normal arterial and venous flow within the right ovary. A follicle within the superior aspect of the ovary is 1.7 cm in maximum dimension. A hypoechoic, heterogeneous focus measuring up to 2.8 cm contains internal echogenic material from likely clot and septation. Also, there is a 2.8 x 1.6 x 2.4 cm hemorrhagic-appearing cyst within the right ovary. The left ovary is 3.6 x 1.8 x 4.2 cm, volume of 14.2 mL. Color Doppler images with spectral waveforms show presence of normal arterial and venous flow within the left ovary. A persistent cystic structure seen in the midline of the lower pelvis measures approximately 4.8 x 3 x 4.2 cm. It has more of a multicystic, septated appearance on this current exam (image 114 of 121). This likely corresponds to the cyst that measured up to 7.9 cm on 03/28/2021 and 4.9 cm on 03/06/2022. There is lack of color Doppler flow within the thickened, smoothly marginated, somewhat nodular focus measuring up to 0.5 cm thickness along the cyst wall (images 112 and 114 of 121). MR imaging of the pelvis with IV contrast (or surgical evaluation if deemed clinically appropriate) may be performed. FREE FLUID: Small amount of free fluid is detected within the pelvis. US/US pelvic ovarian doppler IMPRESSION: * A contraceptive device is appropriate positioned within the endometrium. * Small amount of free fluid is present in the pelvis. * The right ovary is enlarged and is similar in appearance compared to 03/28/2021. It contains a 1.8 cm follicle and likely two hemorrhagic cysts. No evidence of ovarian torsion. * 4.8 cm cystic structure near the midline of the lower pelvis likely corresponds to the cyst that measured up to 7.9 cm on 03/28/2021. Decreased size suggests that this is probably benign. However, the focus has more of a multiseptated appearance on this follow-up exam. There is also an avascular echogenic thickening along the cyst wall for which pelvic MRI without and with IV contrast may be helpful for further characterization.
--- NOTE | ~2023-01-16 | US_ITS ---
EXAMINATION: US PELVIS CLINICAL INFORMATION: Severe pain. COMPARISON: Pelvic ultrasound from 03/28/2021 and 03/06/2022. TECHNIQUE: Ultrasound of the pelvis is performed using both transabdominal and transvaginal transducers along with Doppler. Transvaginal imaging is performed due to inadequate visualization transabdominally. FINDINGS: UTERUS AND CERVIX The anteflexed, anteverted uterus measures 8.2 x 4.6 x 5.9 cm ([id number] x AP x transverse dimension). The myometrial echotexture is normal. No evidence of leiomyoma. Contraceptive device is well centered within the endometrium (images 55-61 of 121). The endometrium is normal; it measures up to 0.9 cm AP thickness. ADNEXA: The right ovary appears to be chronically enlarged; it measures 6.1 x 2.5 x 3.1 cm and, overall, is similar in appearance compared to 03/28/2021. Color Doppler images with spectral waveforms show presence of normal arterial and venous flow within the right ovary. A follicle within the superior aspect of the ovary is 1.7 cm in maximum dimension. A hypoechoic, heterogeneous focus measuring up to 2.8 cm contains internal echogenic material from likely clot and septation. Also, there is a 2.8 x 1.6 x 2.4 cm hemorrhagic-appearing cyst within the right ovary. The left ovary is 3.6 x 1.8 x 4.2 cm, volume of 14.2 mL. Color Doppler images with spectral waveforms show presence of normal arterial and venous flow within the left ovary. A persistent cystic structure seen in the midline of the lower pelvis measures approximately 4.8 x 3 x 4.2 cm. It has more of a multicystic, septated appearance on this current exam (image 114 of 121). This likely corresponds to the cyst that measured up to 7.9 cm on 03/28/2021 and 4.9 cm on 03/06/2022. There is lack of color Doppler flow within the thickened, smoothly marginated, somewhat nodular focus measuring up to 0.5 cm thickness along the cyst wall (images 112 and 114 of 121). MR imaging of the pelvis with IV contrast (or surgical evaluation if deemed clinically appropriate) may be performed. FREE FLUID: Small amount of free fluid is detected within the pelvis. US/US pelvic and transvaginal IMPRESSION: * A contraceptive device is appropriate positioned within the endometrium. * Small amount of free fluid is present in the pelvis. * The right ovary is enlarged and is similar in appearance compared to 03/28/2021. It contains a 1.8 cm follicle and likely two hemorrhagic cysts. No evidence of ovarian torsion. * 4.8 cm cystic structure near the midline of the lower pelvis likely corresponds to the cyst that measured up to 7.9 cm on 03/28/2021. Decreased size suggests that this is probably benign. However, the focus has more of a multiseptated appearance on this follow-up exam. There is also an avascular echogenic thickening along the cyst wall for which pelvic MRI without and with IV contrast may be helpful for further characterization.
--- NOTE | 2023-01-16 12:59 | ED_ITS ---
HPI - General Adult General Chief complaint: Abdominal Pain Stated complaint: lower abd pain Time Seen by Provider: 01/16/23 13:06 Source: patient Mode of arrival: ambulatory Limitations: no limitations History of Present Illness HPI narrative: 32-year-old female with history of obesity, ovarian cysts in the past, PID, has IUD in place who presents to the ER c/o acute onset of severe lower abdominal pain that woke her up out of sleep today. The pain is severe and sharp in nature, in the lower abdomen, pelvic area. She reports vaginal pressure, pain with sitting. She vomited x1 due to severe pain. No ongoing nausea. No diarrhea or constipation. No fever or chills. No vaginal discharge. Last intercourse was 01/11 and was not painful. No vaginal bleeding. Does not get menstrual cycle due to IUD. MD complaint: lower abdominal pain Onset (ago): hour(s) Location: abdomen and pelvis Radiation: non-radiation Severity: severe Severity scale (1-10): 9 Quality: stabbing Pain Consistency: constant Relieving factors: none Exacerbating factors: medication and other (sitting, palpation) Associated symptoms: nausea/vomiting Treatments prior to arrival: none Related Data Home Medications Medication Instructions Recorded Confirmed levonorgestrel 21 mcg/24 hours (8 intrauterine 04/04/21 yrs) 52 mg intrauterine device (Mirena) Previous Rx's Medication Instructions Recorded ibuprofen 600 mg tablet 600 mg PO Q8H PRN pain #20 tabs 03/28/21 albuterol sulfate 90 mcg/actuation 2 puff inhalation Q4-6H PRN 07/03/22 aerosol inhaler (ProAir HFA) shortness of breath or wheezing #8.5 grams cholecalciferol (vitamin D3) 125 125 mcg PO DAILY 90 days #90 caps 12/02/22 mcg (5,000 unit) capsule cyanocobalamin (vitamin B-12) 500 500 mcg PO DAILY 90 days #90 tabs 12/02/22 mcg tablet thiamine HCl (vitamin B1) 100 mg 100 mg PO DAILY 90 days #90 tabs 12/10/22 tablet vitamin A 3,000 mcg (10,000 unit) 3,000 mcg PO DAILY 90 days #90 caps 12/10/22 capsule hydrocodone 5 mg-acetaminophen 325 1 tab PO Q8H PRN severe pain 01/16/23 mg tablet (scale score 7-10) #9 tabs ibuprofen 600 mg tablet 600 mg PO Q8H PRN pain #30 tabs 01/16/23 Allergies Allergy/AdvReac Type Severity Reaction Status Date / Time No Known Allergies Allergy Verified 01/16/23 13:02 [No Known Allergies*] Review of Systems 2 Review of Systems: Yes all other systems are reviewed and are negative [facility] Past Medical History Surgical History No history of previous surgery Family History Family History Maternal Grandmother HTN (hypertension) Paternal Grandmother HTN (hypertension) Diabetes mellitus Paternal Grandfather HTN (hypertension) Diabetes mellitus Alzheimer disease Maternal Aunt Breast cancer Paternal Aunt Breast cancer Social History Social History Alcohol intake: current Alcohol intake frequency: holidays/special occasions only Patient Tobacco Use Status: Never used Tobacco Smoked in Last 30 Days: No Use of substances other than those prescribed or required for medical reasons: No Advance Directives: No service: No Current occupational status: employed Gender identity: Female Physical Exam ED Vital Signs: Vital Signs - 24 hr 01/16/23 13:00 01/16/23 13:34 01/16/23 14:36 Temperature 98.3 F 98.0 F Pulse Rate 103 H 57 Respiratory Rate 18 18 15 Blood Pressure 155/89 H 129/45 L Pulse Oximetry 98 99 Oxygen Delivery Method Room Air Room Air BMI result Body Mass Index 49.7 Appearance: Alert. Oriented X3. No acute distress. Head: normocephalic, atraumatic. Eyes: Pupils equal, round and reactive to light. ENT: Pharynx normal. No tonsillar swelling or exudate. Neck: Normal inspection. Neck supple. CVS: Normal heart rate and rhythm. Pulses normal. Respiratory: No respiratory distress. Breath sounds normal. Abdomen: Obese, Soft with lower abdomen/suprapubic tenderness L>R with some guarding, no rebound. pelvic deferred for now Skin: Skin warm and dry. Normal skin color. Normal skin turgor. No rashes. Extremities: No lower extremity edema. No joint swelling. Neuro/psych: Oriented X 3. No motor deficit. No sensory deficit. CN II-XII intact. Normal speech and cognition. Course Course Course Narrative: RME- 32 year old female presents for evaluation of lower abdominal pain that woke her up at 10am this morning. She reports that her menstrual cycle is irregular due to her IUD. Plan for labs, UA. Will defer potential imaging to primary provider. Medications Administered Discontinued Medications Generic Name Dose Route Start Last Admin Trade Name Katharina PRN Reason Stop Dose Admin Morphine Sulfate 4 mg 01/16/23 13:19 01/16/23 13:31 Morphine Sulfate 4 Mg/Ml Cartridge IVPUSH 01/16/23 13:20 4 mg ONCE ONE Administration Protocol Ondansetron HCl 4 mg 01/16/23 13:19 01/16/23 13:31 Ondansetron Hcl 4 Mg/2 Ml Vial IVPUSH 01/16/23 13:20 4 mg ONCE ONE Administration Medical Decision Making Medical Decision Making [facility] Narrative: 32-year-old female with history of obesity, ovarian cysts in the past, PID, has IUD in place who presents to the ER c/o acute onset of severe lower abdominal pain that woke her up out of sleep today. Labs normal. UA normal. US w/ multiple cysts, overall decreased from prior. recommend outpatient MRI for further characterization. results d/w patient. pain significantly improved after morphine comfortable w/ discharge home with pain control and OB follow up Differential Diagnosis Differential Diagnoses: The differential diagnosis associated with the presentation includes ovarian cyst, ovarian torsion, UTI, uterine perforation due to IUD displacement, PID, TOA, STI, UTI Admission/Observation Consideration of admission/observation: Escalation of care including admission/observation considered severe pain on arrival Lab Data [facility] Lab Attestation statement: I reviewed the patient's lab results. no leukocytosis 01/16/23 13:27 01/16/23 13:27 Labs: Lab Results 01/16/23 01/16/23 Range/Units 13:27 16:26 WBC 9.7 (4.8-10.8) X10*3/uL RBC 4.84 (4.20-5.50) X10*6/uL Hgb 13.0 (12.0-16.0) g/dl Hct 40.0 (37.0-47.0) % MCV 82.6 (80.0-98.0) fL MCH 26.9 L (27.0-33.0) pg MCHC 32.5 (31.0-35.0) g/dl RDW 15.0 (11.0-16.0) % Plt Count 338 (160-400) X10*3/uL MPV 9.6 (9.4-12.3) fL Immature Gran % (Auto) 0.2 (0.0-0.4) % Neut % (Auto) 69.5 (45-73) % Lymph % (Auto) 21.2 (20-40) % [place] % (Auto) 7.4 (2-11) % Eos % (Auto) 1.3 (0-4) % Baso % (Auto) 0.4 (0-2) % Lymph # (Auto) 2.1 (1.2-4.9) X10*3/uL [place] # (Auto) 0.7 (0.1-1.2) X10*3/uL Eos # (Auto) 0.1 (0.0-0.4) X10*3/uL Baso # (Auto) 0.0 (0.0-0.2) X10*3/uL Abs Immat Gran (auto) 0.02 (0.00-0.03) X10*3/uL Absolute Neuts (auto) 6.7 (2.0-8.3) x10*3/uL Absolute Nucleated RBC 0.000 (0.0-0.012) X10*3/uL Nucleated RBC % (auto) 0.0 (0.0-0.2) /100WBC Sodium 139 (135-145) mmol/L Potassium 3.9 (3.3-5.1) mmol/L Chloride 105 (96-108) mmol/L Carbon Dioxide 23 (22-29) mmol/L Anion Gap 15 (12-20) BUN 11 (9-16) mg/dL Creatinine 0.79 (0.5-1.4) mg/dL Estim Creat Clear Calc 151.1 Estimated GFR > 60 Random Glucose 97 (60-115) mg/dL Calcium 9.6 (8.4-10.2) mg/dL Total Bilirubin 0.5 (0.0-1.0) mg/dL AST 16 (5-31) U/L ALT 14 (0-31) U/L Alkaline Phosphatase 67 (39-117) U/L Total Protein 7.9 (6.5-8.0) g/dL Albumin 3.9 (3.5-5.0) g/dL Beta HCG, Quant < 2 mIU/mL Urine Color Yellow Urine Appearance Clear Urine pH 6.5 (5.0-9.0) Ur Specific [place] <= 1.005 (1.005-1.025) Urine Protein Negative (Neg-Trace) mg/dL Urine Glucose (UA) Negative (Negative) mg/dL Urine Ketones Negative (Negative) mg/dL Urine Blood Small (1+) H (Negative) Urine Nitrite Negative (Negative) Ur Leukocyte Esterase Small (1+) H (Negative) Urine RBC 0-2 (0-2) /HPF Urine WBC 0-5 (0-5) /HPF Ur Squamous Epith Cells 0-2 (0-2) /HPF Urine Bacteria None Seen (None Seen) Hyaline Casts 0-2 (0-2) /LPF Urine Test NEGATIVE (NEGATIVE) Independent Interpretation I performed an independent interpretation of an: Ultrasound Interpretation: normal flow seen, multiple cysts, agree w/ radiology read Radiology Impression Discussion of test interpretation with radiology: I have reviewed the radiologist's reading. Radiologist Impression: US/US pelvic and transvaginal IMPRESSION: * A contraceptive device is appropriate positioned within the endometrium. * Small amount of free fluid is present in the pelvis. * The right ovary is enlarged and is similar in appearance compared to 03/28/2021. It contains a 1.8 cm follicle and likely two hemorrhagic cysts. No evidence of ovarian torsion. * 4.8 cm cystic structure near the midline of the lower pelvis likely corresponds to the cyst that measured up to 7.9 cm on 03/28/2021. Decreased size suggests that this is probably benign. However, the focus has more of a multiseptated appearance on this follow-up exam. There is also an avascular echogenic thickening along the cyst wall for which pelvic MRI without and with IV contrast may be helpful for further characterization. External Record Review External record reviewed: Outpatient record, Prior outpatient labs and Prior outpatient radiology Prescription Management I considered prescription management with: Pain Medication and Antibiotic Chronic Conditions Patient?s care impacted by: Other (ovarian cysts) Critical Care Time Critical Care Time Critical Care Time: No Discharge Plan Discharge Clinical Impression: Ovarian cyst Qualifiers: Laterality: bilateral Qualified Code(s): N83.201 - Unspecified ovarian cyst, right side Patient Disposition: Home, Self-Care Instructions: Ovarian Cyst (ED) Additional Instructions: Labs were normal and UA was negative for infection and . US results below. Take the prescribed motrin as needed for mild-moderate pain Take the prescribed hydrocodone as needed for severe pain Follow up with [facility] If you develop new or worsening symptoms call 911 or come back to the ER for further evaluation. US/US pelvic and transvaginal IMPRESSION: * A contraceptive device is appropriate positioned within the endometrium. * Small amount of free fluid is present in the pelvis. * The right ovary is enlarged and is similar in appearance compared to 03/28/2021. It contains a 1.8 cm follicle and likely two hemorrhagic cysts. No evidence of ovarian torsion. * 4.8 cm cystic structure near the midline of the lower pelvis likely corresponds to the cyst that measured up to 7.9 cm on 03/28/2021. Decreased size suggests that this is probably benign. However, the focus has more of a multiseptated appearance on this follow-up exam. There is also an avascular echogenic thickening along the cyst wall for which pelvic MRI without and with IV contrast may be helpful for further characterization. Prescriptions: New ibuprofen 600 mg tablet 600 mg PO Q8H PRN (Reason: pain) Qty: 30 0RF hydrocodone-acetaminophen 5-325 mg tablet 1 tab PO Q8H PRN (Reason: severe pain (scale score 7-10)) Qty: 9 0RF Rx Instructions: Partial Fill upon patient request. No Action cholecalciferol (vitamin D3) 125 mcg (5,000 unit) capsule 125 mcg PO DAILY 90 Days Qty: 90 1RF cyanocobalamin (vitamin B-12) 500 mcg tablet 500 mcg PO DAILY 90 Days Qty: 90 0RF thiamine HCl (vitamin B1) 100 mg tablet 100 mg PO DAILY 90 Days Qty: 90 1RF vitamin A 3,000 mcg (10,000 unit) capsule 3,000 mcg PO DAILY 90 Days Qty: 90 0RF ibuprofen 600 mg tablet 600 mg PO Q8H PRN (Reason: pain) Qty: 20 0RF albuterol sulfate [ProAir HFA] 90 mcg/actuation HFA aerosol inhaler 2 puff inhalation Q4-6H PRN (Reason: shortness of breath or wheezing) Qty: 8.5 0RF Mirena 20 mcg/24 hours (7 yrs) 52 mg intrauterine device intrauterine Referrals: Caryl Horvath MD [Primary Care Provider] - Jalil Santacruz MD [Physician] - Stand Alone Forms: Work/School Release
[2023-01-16 13:00] VITALS: BP 155/89; PULSE 103; RESP 18; TEMP 36.8; O2SAT 98; BMI 49.7
[2023-01-16] MEDS: ondansetron HCL 4 MG/2 ML VIAL IVPUSH (13:31)
[2023-01-16] MEDS: Morphine Sulfate 4 MG/ML CARTRIDGE IVPUSH (13:31)
[2023-01-16 13:32] LABS: MANUAL DIFF FLAG NO
[2023-01-16 13:34] VITALS: RESP 18
[2023-01-16 13:34] LABS: Basophils Percent Auto 0.4 % (0-2); Eosinophils Absolute Auto 0.1 X10*3/uL (0.0-0.4); Eosinophils Percent Auto 1.3 % (0-4); Imm Gran Abs Auto 0.02 X10*3/uL (0.00-0.03); Imm Gran Pct Auto 0.2 % (0.0-0.4); Lymphocytes Absolute Auto 2.1 X10*3/uL (1.2-4.9); Lymphocytes Percent Auto 21.2 % (20-40); Mean Corpuscular HGB Conc 32.5 g/dl (31.0-35.0); Mean Corpuscular Hemoglobin 26.9 pg (27.0-33.0); Mean Corpuscular Volume 82.6 fL (80.0-98.0); Mean Platelet Volume 9.6 fL (9.4-12.3); Monocytes Absolute Auto 0.7 X10*3/uL (0.1-1.2); Monocytes Percent Auto 7.4 % (2-11); Neutrophils Absolute Auto 6.7 x10*3/uL (2.0-8.3); Neutrophils Percent Auto 69.5 % (45-73); Platelet Count 338 X10*3/uL (160-400); Red Blood Count 4.84 X10*6/uL (4.20-5.50); White Blood Count 9.7 X10*3/uL (4.8-10.8)
--- NOTE | 2023-01-16 13:39 | PC.NURSE ---
pt is alert and oriented, skin slightly pale for ethnicity, respirations even and unlabored, pt reports being woken up from her sleep at 1030 do to left lower abd pain, some nausea, abd soft but tender in the left lower quadrant, pt reports hx of large ovarian cysts
[2023-01-16 13:50] LABS: Alanine Aminotransferase 14 U/L (0-31); Albumin Level 3.9 g/dL (3.5-5.0); Alkaline Phosphatase 67 U/L (39-117); Anion Gap 15 (12-20); Aspartate Amino Transferase 16 U/L (5-31); Bilirubin Total 0.5 mg/dL (0.0-1.0); Blood Urea Nitrogen 11 mg/dL (9-16); Calcium 9.6 mg/dL (8.4-10.2); Carbon Dioxide 23 mmol/L (22-29); Chloride 105 mmol/L (96-108); Creatinine Clr Calc Pharmacy 151.1; Estimated Glomerular Filt Rate > 60; Glucose Random 97 mg/dL (60-115); Potassium 3.9 mmol/L (3.3-5.1); Sodium 139 mmol/L (135-145); Total Protein 7.9 g/dL (6.5-8.0)
[2023-01-16 13:58] LABS: HCG Quantitative < 2 mIU/mL
[2023-01-16 14:36] VITALS: BP 129/45; PULSE 57; RESP 15; TEMP 36.7; O2SAT 99
--- NOTE | 2023-01-16 14:46 | PC.NURSE ---
pt is currently resting, reports feeling better after the morphine, pain at 2/10
[2023-01-16 16:34] LABS: Appearance Urine Clear; Color Urine Yellow; Glucose Urine UA Negative (Negative); Leukocyte Esterase Urine Small (1+) (Negative); Nitrite Urine Negative (Negative); PH 6.5 (5.0-9.0); Specific Gravity - Urine <= 1.005 (1.005-1.025); UMIC TRIGGER UACC YES; UPreg QC Valid YES; Urine Blood Small (1+) (Negative); Urine Ketones Negative (Negative); Urine Pregnancy NEGATIVE (NEGATIVE); Urine Protein Negative (Neg-Trace)
[2023-01-16 16:45] LABS: Bacteria Urine None Seen (None Seen); Hyaline Casts Urine 0-2 /LPF (0-2); RBC Urine 0-2 /HPF (0-2); Squamous Epithelial Cell Urine 0-2 /HPF (0-2); UACC Culture Trigger YES; WBC Urine 0-5 /HPF (0-5)
== END 2023-01-16 17:05 | disposition home or self-care (01) ==
PROVIDERS: Physician Assistant; Emergency Provider Emergency Medicine; PCP Internal Medicine
DX: N83.201 Unspecified ovarian cyst, right side (principal); R10.31 Right lower quadrant pain; E66.01 Morbid (severe) obesity due to excess calories; Z68.42 Body mass index [BMI] 45.0-49.9, adult
CPT/HCPCS: 36415; 76830; 76856; 80053; 81001; 81025; 84702; 85025; 87086; 93975; 96374; 96375; 99284; J2270; J2405

== ENCOUNTER 2023-01-28 08:56 | Outpatient (REF) | payer OTHER, SELFPAY ==
--- NOTE | ~2023-01-28 | US_ITS ---
EXAMINATION: US COMPLETE ABDOMEN WITH LIVER ELASTOGRAPHY CLINICAL INFORMATION: Obesity. COMPARISON: None available. TECHNIQUE: Real-time imaging of the abdominal viscera. Noninvasive ultrasound liver fibrosis assessment is performed using Nico ElastPQ point quantification shear wave elastography (2D-SWE) with a C5-2 MHz transducer. Multiple elastography samples are obtained. Imaging is somewhat limited by body habitus. FINDINGS: PANCREAS: Normal. The visualized pancreatic head and body are normal in appearance. The remainder of the pancreas is obscured from visualization by the overlying bowel gas. ABDOMINAL AORTA: The proximal, middle, and distal aortic segments are normal in caliber. INFERIOR VENA CAVA: Visualized portions are normal. LIVER: There is borderline hepatomegaly. The liver demonstrates normal size, contour and echogenicity. No focal lesion or intrahepatic biliary duct dilatation. The right lobe measures 17.1 cm in length. The left lobe measures 9.8 cm in length. Portal flow is towards the liver (hepatopetal). Shear wave liver elastography median stiffness is 1.49 m/s (reference: normal median stiffness is 1.3 m/s or less). IQR/median stiffness to assess sampling precision is 0.15 (reference: good quality data set is IQR/median stiffness of 0.15 or less). GALLBLADDER: Normal. The gallbladder is physiologically distended without evidence of stones, sludge, polyps, wall thickening or pericholecystic fluid. COMMON BILE DUCT: Normal in caliber measuring 0.6 cm in diameter. RIGHT KIDNEY: Normal. No hydronephrosis. No renal calculi or focal parenchymal lesions. The kidney measures 11.9 cm in maximum dimension. LEFT KIDNEY: Normal. No hydronephrosis. No renal calculi or focal parenchymal lesions. The kidney measures 11.7 cm in maximum dimension. SPLEEN: Normal. The spleen measures 16.4 cm in maximum dimension. FREE FLUID: None. US/US abdomen comp w elastography IMPRESSION: 1. There is mild hepatosplenomegaly. 2. There is generalized increase in hepatic echotexture, consistent with fatty infiltration or hepatocellular disease. Please correlate clinically. No focal hepatic mass or intrahepatic biliary dilatation is seen. 3. Liver elastography: In the absence of other known clinical signs, measurements rule out compensated advanced chronic liver disease. If there are known clinical signs, further testing may be needed for confirmation. REFERENCE: Society of Radiologists in Ultrasound Liver Stiffness Thresholds (2020): LIVER STIFFNESS THRESHOLDS: *Liver Stiffness equal or less than 1.3 m/s: High probability of being normal. *Liver Stiffness less than 1.7 m/s: In the absence of other known clinical signs, rules out compensated advanced chronic liver disease. *Liver Stiffness 1.7-2.1 m/s: Suggestive of compensated advanced chronic liver disease but need further test for confirmation. *Liver Stiffness over 2.1 m/s: Rules in compensated advanced chronic liver disease. *Liver Stiffness over 2.4 m/s: Suggestive of clinically significant portal hypertension. QUALITY OF DATA SET: *IQR/Median value equal or less than 0.15 implies a quality data set. *IQR/Median value over 0.15 implies a poor quality data set. SIGNIFICANT CHANGE FROM PRIOR EXAM: Significant change if liver stiffness measurement is 10% or greater from prior exam. OTHER CONSIDERATIONS: The stage of liver fibrosis may be overestimated in the setting of acute hepatitis, liver inflammation, elevated liver function tests, hepatic vascular congestion, obstructive cholestasis, non-fasting state, and infiltrative diseases such as amyloidosis and lymphoma. In some patients with NAFLD, the liver stiffness thresholds for compensated advanced chronic liver disease may be lower. In causes other than viral hepatitis and NAFLD, liver stiffness thresholds are not well established.
== END 2023-01-28 08:57 | disposition home or self-care (01) ==
LOC: HO.US 08:56
PROVIDERS: PCP Internal Medicine; Visit Provider Physician Assistant Surgical
DX: E66.01 Morbid (severe) obesity due to excess calories (principal)
CPT/HCPCS: 76705; 76981

== ENCOUNTER 2023-02-04 13:17 | Outpatient (REF) | payer OTHER, SELFPAY ==
[2023-02-04 17:53] LABS: CT PCR NOT DETECTED (Not Detect.); NG PCR NOT DETECTED (Not Detect.)
[2023-02-05 11:19] LABS: BV Int Neg Control Negative (Negative); BV Int Pos Control Positive (Positive)
== END 2023-02-04 13:18 | disposition home or self-care (01) ==
LOC: HO.LAB 13:17
PROVIDERS: PCP Internal Medicine; Visit Provider Advanced Practice Midwife
DX: Z01.419 Encounter for gynecological examination (general) (routine) without abnormal findings (principal); R10.2 Pelvic and perineal pain; N83.209 Unspecified ovarian cyst, unspecified side
CPT/HCPCS: 0353U; 87480; 87510; 87660

== ENCOUNTER 2023-02-04 13:17 | Outpatient (AMB) | payer OTHER, SELFPAY ==
[2023-02-04 14:08] VITALS: BP 120/86; BMI 49.3
--- NOTE | 2023-02-04 14:08 | MHC.OFFVIS ---
Intake Vital Signs 02/04/23 14:08 Height 5 ft 7 in Weight 315 lb BMI 49.3 BP 120/86 Intake Visit Reasons: ER follow up Electroencephalographic Technician: Electroencephalographic Technician Present (Kavya) Allergies No Known Allergies [No Known Allergies*] Allergy (Verified 02/04/23 14:09) HPI HPI Comments History of Present Illness Details Patient is here today for a follow up ED (01/31/23) care for lower pelvic pain, recent US scan revealed a pelvic cyst and she is overdue for her annual examination it will be completed at this visit. Last episode of pain was last night, doing well today. She has no other concerns. Occasional bleeding with the Mirena. Pap not UTD. PFSH Surgical History No history of previous surgery Family History Maternal Grandmother HTN (hypertension) Paternal Grandmother HTN (hypertension) Diabetes mellitus Paternal Grandfather HTN (hypertension) Diabetes mellitus Alzheimer disease Maternal Aunt Breast cancer Paternal Aunt Breast cancer Social History Alcohol intake: current Alcohol intake frequency: holidays/special occasions only Patient Tobacco Use Status: Never used Tobacco service: No Current occupational status: employed Gender identity: Female Female Reproductive History Menstrual Age of Menarche: 10 control method: progestin IUCD (Mirena 04/2020) Date of last pap smear: 06/18/18 (neg pap and hpv) Review of Systems Const All systems reviewed & are unremarkable except as noted in HPI and below Reports as per HPI Eyes Reports no additional complaints ENT Reports no additional complaints Card Reports no additional complaints Resp Reports no additional complaints GI Reports as per HPI and Reports no additional complaints Reports as per HPI Musc Reports no additional complaints Skin/Breast Reports as per HPI Neuro Reports no additional complaints Psych Reports no additional complaints Endo Reports no additional complaints Nehemiah/Lymph Reports no additional complaints Aller/Immun Reports no additional complaints Physical Exam Vital Signs: Last Vital Signs BP 120/86 02/04/23 14:08 BMI result Body Mass Index 49.3 Const General: cooperative, healthy appearing, no acute distress, well developed and alert Orientation/consciousness: patient oriented x3 HEENT Head: Yes normal to inspection Eyes General: appearance normal, both eyes and all related structures Neck Neck: Yes normal visual inspection Thyroid: Thyroid normal Chest Chest palpation & inspection: normal inspection of the chest and other (no puckering, dimpling, peau de orange, retraction, discharge, masses) Breast/axilla inspection: normal inspection of the breasts Breast/axilla palpation: normal palpation of the breasts Resp Effort & Inspection: normal respiratory effort GI Inspection: Yes normal to inspection Palpation (GI): Soft to palpation Rectal Exam - Female: deferred General: Yes bladder normal to palpation External Female Exam: normal external appearance and normal appearance of the urethra Speculum Exam - Vagina: normal appearance of the vagina, normal palpation and normal vaginal discharge Speculum Exam - Cervix: normal appearance of the cervix and normal palpation Bimanual exam- vagina & uterus: normal bimanual exam, normal palpation, uterine size normal, bladder normal to palpation, normal palpation and non-tender Bimanual Exam- Adnexa, other: no masses Skin General skin exam: no rashes or lesions noted Rashes: no rashes Neuro General: patient oriented x3 Cognition (Neuro): normal cognition Extrem General: Yes normal to inspection Psych Attitude: cooperative Thought process: Normal thought process present Results Reviewed Results Reviewed: [address] [address] Ultrasound Report Signed Patient: Lisa Goodrich MR#: [id number] : 1990 Acct:[id number] Age/Sex: 32 / F ADM Date: 01/16/23 Loc: .ED Attending Dr: Ordering Physician: Travis Orona Date of Service: 01/16/23 Procedure(s): US pelvic and transvaginal Accession Number(s): [id number] cc: Travis Orona ; Caryl Horvath MD~ EXAMINATION: US PELVIS CLINICAL INFORMATION: Severe pain. COMPARISON: Pelvic ultrasound from 03/28/2021 and 03/06/2022. TECHNIQUE: Ultrasound of the pelvis is performed using both transabdominal and transvaginal transducers along with Doppler. Transvaginal imaging is performed due to inadequate visualization transabdominally. FINDINGS: UTERUS AND CERVIX The anteflexed, anteverted uterus measures 8.2 x 4.6 x 5.9 cm (oeznol-cr-qweben x AP x transverse dimension). The myometrial echotexture is normal. No evidence of leiomyoma. Contraceptive device is well centered within the endometrium (images 55-61 of 121). The endometrium is normal; it measures up to 0.9 cm AP thickness. ADNEXA: The right ovary appears to be chronically enlarged; it measures 6.1 x 2.5 x 3.1 cm and, overall, is similar in appearance compared to 03/28/2021. Color Doppler images with spectral waveforms show presence of normal arterial and venous flow within the right ovary. A follicle within the superior aspect of the ovary is 1.7 cm in maximum dimension. A hypoechoic, heterogeneous focus measuring up to 2.8 cm contains internal echogenic material from likely clot and septation. Also, there is a 2.8 x 1.6 x 2.4 cm hemorrhagic-appearing cyst within the right ovary. The left ovary is 3.6 x 1.8 x 4.2 cm, volume of 14.2 mL. Color Doppler images with spectral waveforms show presence of normal arterial and venous flow within the left ovary. A persistent cystic structure seen in the midline of the lower pelvis measures approximately 4.8 x 3 x 4.2 cm. It has more of a multicystic, septated appearance on this current exam (image 114 of 121). This likely corresponds to the cyst that measured up to 7.9 cm on 03/28/2021 and 4.9 cm on 03/06/2022. There is lack of color Doppler flow within the thickened, smoothly marginated, somewhat nodular focus measuring up to 0.5 cm thickness along the cyst wall (images 112 and 114 of 121). MR imaging of the pelvis with IV contrast (or surgical evaluation if deemed clinically appropriate) may be performed. FREE FLUID: Small amount of free fluid is detected within the pelvis. US/US pelvic and transvaginal IMPRESSION: * A contraceptive device is appropriate positioned within the endometrium. * Small amount of free fluid is present in the pelvis. * The right ovary is enlarged and is similar in appearance compared to 03/28/2021. It contains a 1.8 cm follicle and likely two hemorrhagic cysts. No evidence of ovarian torsion. * 4.8 cm cystic structure near the midline of the lower pelvis likely corresponds to the cyst that measured up to 7.9 cm on 03/28/2021. Decreased size suggests that this is probably benign. However, the focus has more of a multiseptated appearance on this follow-up exam. There is also an avascular echogenic thickening along the cyst wall for which pelvic MRI without and with IV contrast may be helpful for further characterization. Dictated By: Sumeet Middleton MD Signed By: <Electronically signed by Sumeet Middleton MD in OV> Assessment & Plan Assessment & Plan (1) Well woman exam with routine gynecological exam: Code(s): Z01.419 - Encounter for gynecological examination (general) (routine) without abnormal findings (2) Pelvic pain: Code(s): R10.2 - Pelvic and perineal pain Plan: Discussed: Current recommendations for pap smears per ASCCP guidelines. Breast awareness and periodic breast exams. Maintain a healthy lifestyle including a well balanced diet and routine exercise. Use condoms for STI and prevention. MRI follow up on the pelvic cystic mass. RTO in person to discuss results and plan of care. If any increase in pain return to the ED. OTC self help measures for discomfort and consider heating pad use. All of her questions and concerns were addressed to the best of my ability. RTO in one year for annual adult education professional examination. (3) Ovarian cyst: Code(s): N83.209 - Unspecified ovarian cyst, unspecified side Orders: Orders Bacterial Vaginosis Panel Today R10.2 - Pelvic and perineal pain CT NG by PCR Today R10.2 - Pelvic and perineal pain Pap Smear Today Z01.419 - Encounter for gynecological examination (general) (routine) without abnormal findings MR pelvis wo/w con Today N83.209 - Unspecified ovarian cyst, unspecified side Coding Level of Care Code Est Pt Prev Care 18-39y([id number]) Diagnoses Well woman exam with routine gynecological exam Z01.419 Pelvic pain R10.2 Ovarian cyst N83.209
== END 2023-02-04 14:44 | disposition home or self-care (01) ==
LOC: HO.HWS 13:17
PROVIDERS: PCP Internal Medicine; Visit Provider Advanced Practice Midwife
DX: Z01.419 Encounter for gynecological examination (general) (routine) without abnormal findings (principal); R10.2 Pelvic and perineal pain; N83.209 Unspecified ovarian cyst, unspecified side
CPT/HCPCS: 99395

== ENCOUNTER 2023-02-04 14:38 | Outpatient (REF) | payer OTHER, SELFPAY ==
[2023-02-07 06:23] LABS: HPV mRNA E6/E7 rflx Not Detected (Not Detected)
== END 2023-02-04 14:39 | disposition home or self-care (01) ==
LOC: HO.LNP 14:38
PROVIDERS: Visit Provider Advanced Practice Midwife
DX: Z01.419 Encounter for gynecological examination (general) (routine) without abnormal findings (principal); Z11.51 Encounter for screening for human papillomavirus (HPV)
CPT/HCPCS: 87624; 88142

== ENCOUNTER 2023-02-05 14:21 | Outpatient (AMB) | payer OTHER, SELFPAY ==
--- NOTE | 2023-02-05 14:29 | MHC.OFFVISWM ---
Intake VS Expanded 02/05/23 14:54 BP 146/67 H Blood Pressure Location Rt brachial Blood Pressure Position Sitting Pulse 87 Pulse Source Pulse Oximeter Temp 96.9 F Temperature Source Temporal Artery Scan Pulse Oximetry 99 Oxygen Delivery Method Room Air Height 5 ft 7 in Weight 312 lb 12.8 oz BMI 49.0 Body Fat % 50.1 Body Fat Mass 156.8 Fat Free Mass 155.8 Visceral Fat Rating 16.0 Body Water % 35.8 Body Water Mass 111.8 Muscle Mass/Score 148.0 Basal Metabolic Rate/Score 2,273 Intake Visit Reasons: H.Pylori Public Health Dentist Required: No Allergies No Known Allergies [No Known Allergies*] Allergy (Verified 02/05/23 14:49) Medication List - Last Reconciled 02/05/23 by GIGI Cortez albuterol sulfate 90 mcg/actuation (ProAir HFA) 2 puffs inhalation Q4-6H PRN cholecalciferol (vitamin D3) 125 mcg PO DAILY 90 days cyanocobalamin (vitamin B-12) 500 mcg PO DAILY 90 days ibuprofen 600 mg PO Q8H PRN levonorgestrel (Mirena) intrauterine thiamine HCl (vitamin B1) 100 mg PO DAILY 90 days vitamin A 3,000 mcg PO DAILY 90 days HPI HPI Comments History of Present Illness Details The patient is a pleasant 33 year old female who returns to the clinic for pre-operative surgical weight loss management. They were last seen in the office on 11/26/22, recorded weight at that time was 330.6 pounds, with a BMI of 51.8. Today's weight is 312.8 pounds and BMI is 49. There has been a weight loss of 17.8 pounds since initiating the surgical weight loss program on 11/26/22 with a total body weight loss of 5.3 %. Pre op work up completed as follows: SWL classes:? []/8 BH appts: Cleared 12/19/2022 ? ? RD appts: Cleared 12/24/2022 Labs: 12/02/2022-low D, B12:357, A, B1 H. pylori: 02/05/2023 CXR: 12/06/2022-nad EKnormal ABD U/S: 01/28/2023-fatty liver UGI: 02/11/2023 The patient reports things are going well. She did go to [place] in january and did not follow the meal plan while there. The patient does have a body composition scale. She also has not been communicating weekly. She states that she was away in January with her family in [facility] and did not follow the meal plan. She additionally has reported constipation with no bowel movement in 5 days. No nausea. Positive flatus. Current meal plan includes: Work days: Start with 3 Organ shakes ([employer], [employer], [employer]), First shake (2 scoops in 8 oz low fat unsweetened almond milk or water) at 11am-1pm Second shake (2 scoops in 8 oz low fat unsweetened almond milk or water) at 3pm-5pm 1 protein bar (fit crunch bars at [employer], [employer], or [employer]) at 6pm-8pm. Dinner at 11pm (10 forks of protein and 10 forks of salad/vegetables). Another shake with 1 scoop in 8 oz unsweetened almond milk at 1am-3am. 1 protein bar (fit crunch bars at [employer], [employer], or [employer]) at 4am-6am. Non work days: Start with 3 Orgain shakes ([employer], [employer], [employer]) First shake (2 scoops in 8 oz low fat unsweetened almond milk or water) at 7am-9am, Second shake (2 scoops in 8 oz low fat unsweetened almond milk or water) 10am-12pm 1 protein bar (fit crunch bars at [employer], [employer], or [employer]) at 1pm-3pm. Last shake (1 scoop in 8 oz unsweetened almond milk or water) at 4pm-6pm Dinner at 6pm (12 forks of protein and 12 forks of salad/vegetables). Drinking 80 oz of water Current exercise plan includes: treadmill or eliptical, 300 calories 3-5 days per week. PFSH Surgical History No history of previous surgery Family History Maternal Grandmother HTN (hypertension) Paternal Grandmother HTN (hypertension) Diabetes mellitus Paternal Grandfather HTN (hypertension) Diabetes mellitus Alzheimer disease Maternal Aunt Breast cancer Paternal Aunt Breast cancer Social History Alcohol intake: current Alcohol intake frequency: holidays/special occasions only Patient Tobacco Use Status: Never used Tobacco service: No Current occupational status: employed Gender identity: Female Female Reproductive History Menstrual Age of Menarche: 10 Review of Systems Const All systems reviewed & are unremarkable except as noted in HPI and below Physical Exam Const General: healthy appearing and no acute distress Resp Effort & Inspection: normal respiratory effort Auscultation: clear to auscultation bilaterally Cardio Rate: regular rate Rhythm: regular rhythm GI Auscultation: normal bowel sounds Extrem General: Yes normal to inspection Assessment & Plan Assessment & Plan (1) Morbid obesity: Code(s): E66.01 - Morbid (severe) obesity due to excess calories Plan: Work days: Start with 3 Organ shakes ([employer], [employer], [employer]), First shake (2 scoops in 8 oz low fat unsweetened almond milk or water) at 11am-1pm Second shake (1 scoop in 8 oz low fat unsweetened almond milk or water) at 3pm-5pm 1 protein bar (fit crunch bars at [employer], [employer], or [employer]) at 6pm-8pm. Dinner at 11pm (10 forks of protein and 10 forks of salad/vegetables). Another shake with 1 scoop in 8 oz unsweetened almond milk at 1am-3am. 1 protein bar (fit crunch bars at [employer], [employer], or [employer]) at 4am-6am. Non work days: Start with 3 Orgain shakes ([employer], [employer], [employer]) First shake (2 scoops in 8 oz low fat unsweetened almond milk or water) at 7am-9am, Second shake (2 scoops in 8 oz low fat unsweetened almond milk or water) 10am-12pm 1 protein bar (fit crunch bars at [employer], [employer], or [employer]) at 1pm-3pm. Last shake (1 scoop in 8 oz unsweetened almond milk or water) at 4pm-6pm Dinner at 6pm (10 forks of protein and 10 forks of salad/vegetables). Discussed the importance of weekly communication and she will send her weight on Wednesdays. Discussed the importance of increased exercise. She will try to increase the days at the gym and calories burned. Reminded of upcoming upper GI next week. H pylori was done today. Follow-up in 3 weeks. (2) Constipation: Code(s): K59.00 - Constipation, unspecified Plan: Patient had multiple dietary indiscretions while she was away on vacation in [place] at [place]. Prior to this she was doing well. I have given her prescription for Dulcolax suppository and she states that she did obtain [id number] MiraLax. I instructed her to have 1 dose of MiraLax tonight as well as a suppository and to text me if she has any further problems. Medications: New bisacodyl (Dulcolax (bisacodyl)) 10 mg NH DAILY PRN 12 ea 0RF constipation Coding Level of Care Code Est Pt Level 4 (27313) Diagnoses Morbid obesity E66.01 Constipation K59.00
[2023-02-05 14:54] VITALS: BP 146/67; PULSE 87; TEMP 36.1; O2SAT 99; BMI 49.0
== END 2023-02-05 14:58 | disposition home or self-care (01) ==
PROVIDERS: PCP Internal Medicine; Visit Provider Physician Assistant
DX: E66.01 Morbid (severe) obesity due to excess calories (principal); K59.00 Constipation, unspecified
CPT/HCPCS: 99214

== ENCOUNTER 2023-02-05 14:21 | Outpatient (REF) | payer OTHER, SELFPAY ==
[2023-02-07 13:57] LABS: H Pylori Breath Test Negative (Negative)
== END 2023-02-05 14:22 | disposition home or self-care (01) ==
LOC: HO.LNP 14:21
PROVIDERS: PCP Internal Medicine; Visit Provider Physician Assistant Surgical
DX: E66.01 Morbid (severe) obesity due to excess calories (principal); K59.00 Constipation, unspecified
CPT/HCPCS: 83013; 99211

== ENCOUNTER 2023-02-10 12:37 | Outpatient (AMB) | payer OTHER, SELFPAY ==
--- NOTE | 2023-02-10 12:25 | A.OFFWM_ITS ---
Intake Intake Visit Reasons: VIDEO F/U Allergies No Known Allergies [No Known Allergies*] Allergy (Verified 02/05/23 14:49) PFSH Surgical History No history of previous surgery Family History Maternal Grandmother HTN (hypertension) Paternal Grandmother HTN (hypertension) Diabetes mellitus Paternal Grandfather HTN (hypertension) Diabetes mellitus Alzheimer disease Maternal Aunt Breast cancer Paternal Aunt Breast cancer Social History Alcohol intake: current Alcohol intake frequency: holidays/special occasions only Patient Tobacco Use Status: Never used Tobacco service: No Current occupational status: employed Gender identity: Female Female Reproductive History Menstrual Age of Menarche: 10 Behavioral Health Assessment Weight Management Therapy Therapy Notes Details Pt presents for a f/up for support as part of surgical weight-loss plan. She had the intake on 12/19 and has been cleared from standpoint. PT reports she has been off track but working on remain consistent with her weight-loss goals. Shred about possible challenges during holidays and other fears about not having family support for her surgery. INTERVENTIONS: Processed functioning and recent setbacks after trip to [place] with friends. Reflected on the things she learned for sustained changes in the future. Patient reflected about decision making. Used Behavioral modification therapy and CBT to identify current cycle of unhealthy habits such as sleep patterns, eating choices and reflect on how these patterns lead to weight issues. Supported client exploring alternatives such as the use of family/natural supports to prioritize sleep. RESPONSE: Pt active and engaged. Responded well to interventions. PLAN: Pt is cleared and don't need to follow up. But, has been encouraged to follow up after surgery for support. Presenting Concerns Referral Source P Provider. Sees GIGI Ricci. Reason for referral Completion of behavioral health assessment as part of process for weight-loss surgery. Precipitating Event Obesity. Living Situation Current Living Situation Rent At risk of losing current housing? No Satisfied with current living situation? No Comments PT lives at her parents property. She lives with her 4 years old son. Food/Weight/Diet Expectations of change Pt main goal is to be healthy and be active with her son. Goal is to lose 10% of her weight before surgery, which is about 33 lbs. Ultimate weight goal: 297 lbs. before surgery History/Relationship with food Pt reports she's an emotional eater. If happy and celebrating will eat out, if sad will snack a lot, when stressed she anticipated and order prior the stressors to come. Started the meal mckeon and so far is doing well. Example of meals before starting program Breakfast: 7 am- eggs/susace/pancakes or a breakfast sandwich. Lunch: Sleeping/ wakes up around 2-3pm whatever is there but a form snacking as was not a formal meal. (goldfish/taxis/pizza/nuggets/pick on fruit) Dinner: around 7pm. Rice/beans/meat or pasta. [place]ican/ style Late meal: 11pm. Take out. Snacks: ongoing trough the day (bread, or anything around) . Started meal plan 3 weeks ago and so far is doing well. 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 History/Relationship with weight Started gaining weight at age 15. Was about 200Lbs by age 16. highest weight has been 333Lbs this year around October. In past 10 years her lowest weight has been around 240Lbs. History/Relationship with dieting Not carbs, weightwatchers multiple times, intermittent fasting. Started WMP in 11/26. Binge Eating Do you frequently eat large amounts of food in short periods of time, not feeling physically hungry? No Do you feel out of control when you eat a large amount of food in a short period of time? No Do you eat large amounts of food rapidly and typically alone? No Night Eating Do you wake up at least once during the night to eat? Yes If you wake up in the night, do you find that it is necessary to eat something in order to fall back asleep? Yes Do you have little or no appetite in the morning and feel very hungry in the evening, often overeating between dinner and when you go to bed? Yes Social History Family history and relationship Pt is a relationship with son's father but they don't live together PArets are . 2 sisters. Very close relationships. 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 Developmental history and status None reported. Social support Boyfriend, best friends. Community support None. Oriental Orthodox/Spirituality Raised as Episcopal. Cultural/Ethnic information . Mom [place], Dad Ecuadorean. Macedonian primary language. Legal Involvement and History Current or historical involvement with the legal system? None reported. Education Highest grade completed HS. Some college/started pre-requisites for nursing. Preferred learning style Learn by doing Currently enrolled in educational program? No Interested in further educational program? Yes Educational Interests/Skills wants to be a nurse. 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 ) Wants help to find employment? No Meaningful activities Reading, be outside, arts/crafts, painting. Financial Situation Describe current financial situation Comfortable Financial assistance? None Service Service? No Mental Health and Addiction Treatment Current/Past substance abuse? No Current/Past addictive behavior concerns? No Psychiatric history Denied any past MH treatment, crisis and/or hospitalization. Also denied any past/current concern with SI, SA self/other- harm. Pt reports she has experienced some anxiety and physical sickness when stressed due to unknow situations. Medical and Physical Health Summary Additional Medical History not covered in history None Sexual History concerns None Physical exam in the last year? No Pain Screening Current pain? No Pain in the last few months? Yes Comments Back pain. Medications Is the patient compliant with medications? Yes Does the patient have Evans Guardian in place? Not applicable Does the patient use complimentary health approaches? No Trauma/Abuse History History of trauma? No Assessment & Plan Assessment & Plan (1) Morbid obesity: Code(s): E66.01 - Morbid (severe) obesity due to excess calories (2) Adjustment disorder: Code(s): F43.20 - Adjustment disorder, unspecified Plan PT cleared. F/up for support post-surgery. Telehealth Telehealth Location of provider rendering services: other Location of patient: address on file Patient Identification confirmed using: Name, : Yes Telehealth method: video Patient verbally consented to treatment: Yes Patient verbally consented to billing insurance company: Yes Patient informed of any privacy concerns related to visit: No Minutes spent on Phone/Video with Pt.: 45 Coding Level of Care Code Established Pt Tele Psytx 45 mins (61474) Patient Type Established Diagnoses Morbid obesity E66.01 Adjustment disorder F43.20 Time Spent (min) 45
== END 2023-02-10 13:00 | disposition home or self-care (01) ==
LOC: HO.HBST 12:37
PROVIDERS: PCP Internal Medicine; Visit Provider Counselor Mental Health
DX: E66.01 Morbid (severe) obesity due to excess calories (principal); F43.20 Adjustment disorder, unspecified
CPT/HCPCS: 90834

== ENCOUNTER → 2023-02-10 12:37 | Outpatient (BNVA) | payer OTHER, SELFPAY | PROVIDERS: PCP Internal Medicine; Visit Provider Counselor Mental Health ==

== ENCOUNTER 2023-02-11 10:26 | Outpatient (REF) | payer OTHER, SELFPAY ==
--- NOTE | ~2023-02-11 | FL_ITS ---
EXAMINATION: XR FLUOROSCOPY UPPER GI WITH AIR CLINICAL INFORMATION: Preop evaluation prior to bariatric surgery COMPARISON: None TECHNIQUE: Fluoroscopic air contrast upper GI examination was performed utilizing standard techniques with thin and thick barium and effervescent granules. Numerous spot images were obtained. FINDINGS: Lateral cine images of the oropharynx and hypopharynx demonstrate normal swallow mechanism with normal epiglottic inversion and soft palate elevation. No tracheal penetration, glottic or subglottic aspiration identified. No nasopharyngeal reflux present. Hypopharyngeal structures appear normal without evidence of mass or diverticulum. There was no significant cricopharyngeal achalasia. Dual and single contrast images of the esophagus demonstrate normal caliber, contour, and mucosal pattern. No evidence of stricture, mass, or ulcerations identified. Esophageal peristalsis was normal. A small to moderate-sized sliding hiatal hernia is present. Gastroesophageal reflux is seen up to the level of thoracic inlet. Dual contrast and single contrast images of the stomach demonstrated normal contour and mucosal pattern without evidence of mass, ulceration, or other abnormality. Contrast freely passed into the gastric antrum and duodenal bulb without delay. Single and air-contrast images of the duodenal bulb demonstrate no abnormality. The duodenal sweep has a normal appearance, course, and mucosal fold appearance. The imaged proximal jejunum has a normal fold pattern and caliber. FLUOROSCOPY TIME: 2 minutes 59 seconds Number of Spot Images: 9 Number of Cine: 11 DOSE AREA PRODUCT: 2928 uGy-m2 (microgray-meter squared) FL/FL upper GI w air IMPRESSION: 1. Small to moderate-sized type I hiatal hernia. 2. Significant gastroesophageal reflux. This procedure was performed by Travis Lee PA-C, and supervised by Dr. Donaldson
== END 2023-02-11 10:27 | disposition home or self-care (01) ==
LOC: HO.XRAY 10:26
PROVIDERS: PCP Internal Medicine; Visit Provider Physician Assistant Surgical
DX: E66.01 Morbid (severe) obesity due to excess calories (principal)
CPT/HCPCS: 74246

== ENCOUNTER → 2023-02-11 10:27 | Outpatient (BNV) | payer OTHER, SELFPAY | PROVIDERS: PCP Internal Medicine; Visit Provider Radiology Diagnostic Radiology | DX: E66.01 Morbid (severe) obesity due to excess calories (principal) | CPT/HCPCS: 74246 ==

== ENCOUNTER 2023-02-19 07:20 | Outpatient (AMB) | payer OTHER, SELFPAY ==
--- NOTE | 2023-02-19 07:31 | A.OFFPC_ITS ---
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 Accompanied by: Self / Same As Patient Allergies No Known Allergies [No Known Allergies*] Allergy (Verified 02/19/23 07:43) Medication List - Last Reconciled 02/19/23 by Caryl Henriquez MD albuterol sulfate 90 mcg/actuation (ProAir HFA) 2 puffs inhalation Q4-6H PRN bisacodyl (Dulcolax (bisacodyl)) 10 mg WA DAILY PRN cholecalciferol (vitamin D3) 125 mcg PO DAILY 90 days cyanocobalamin (vitamin B-12) 500 mcg PO DAILY 90 days ibuprofen 600 mg PO Q8H PRN levonorgestrel (Mirena) intrauterine thiamine HCl (vitamin B1) 100 mg PO DAILY 90 days vitamin A 3,000 mcg PO DAILY 90 days Tobacco use date assessed: 02/19/23 Dental Screening Dental Screen Date: 02/19/23 Did you have a dental visit in the last 12 months?: Yes Did you have a dental problem in the last 6 months where you did not have access to dental care?: No Was dental information given to patient?: Patient has dentist HPI HPI Comments History of Present Illness Details This is 33-year-old female with morbid obesity that comes for her physical exam. She follows up with weight management. Last Pap smear was February 2023 and was normal with HPV negative. Complains of left leg pain and swelling that has been present for few months. She also has microscopic hematuria and urinalysis will be repeated. [facility] Surgical History No history of previous surgery Family History Maternal Grandmother HTN (hypertension) Paternal Grandmother HTN (hypertension) Diabetes mellitus Paternal Grandfather HTN (hypertension) Diabetes mellitus Alzheimer disease Maternal Aunt Breast cancer Paternal Aunt Breast cancer Social History Housing: House Alcohol intake: current Alcohol intake frequency: holidays/special occasions only Alcohol type: wine Patient Tobacco Use Status: Never used Tobacco e-Cigarette/Vaping Use: Never Used Second Hand Smoke Exposure: No service: No Current occupational status: employed Current occupational exposures/hazards: No Gender identity: Female Cognitive needs: No Hearing needs: No Vision needs: Yes Female Reproductive History Menstrual Age of Menarche: 10 Questionnaire PHQ-9 Over the last 2 weeks, how often have you been bothered by any of the following problems? 1. Little interest or pleasure in doing things: not at all 2. Feeling down, depressed, or hopeless: not at all 3. Trouble falling or staying asleep, or sleeping too much: not at all 4. Feeling tired or having little energy: not at all 5. Poor appetite or overeating: not at all 6. Feeling bad about yourself - or that you are a failure or have let yourself or your family down: not at all 7. Trouble concentrating on things, such as reading the newspaper or watching television: not at all 8. Moving or speaking so slowly that other people could have noticed. Or the opposite - being so fidgety or restless that you have been moving around a lot more than usual: not at all 9. Thoughts that you would be better off or of hurting yourself in some way: not at all Total score: 0 Depression Screening Interpretation: Negative Depression Screening Done: Yes 96474 - PHQ-9 Billing: Yes Source: Developed by Drs. Allan Canales, Kitty Hughes, Bryan Colmenares and colleagues, with an educational michael from [employer]. Thrive Questionnaire Date Thrive assessed: 02/19/23 I am a: Patient What is your living situation today?: I have a steady place to live Within the past 12 months, did the food you bought not last and you didn't have the money to get more?: Never true Within the past 12 months, did you worry whether your food would run out before you got money to buy more?: Never true Do you have trouble paying for medicines?: No Do you have trouble getting transportation to medical appointments?: No Do you have trouble paying your heating and electricity bill?: No Do you have trouble taking care of your child, family member or friend?: No Do you have trouble with day-to-day activities such as bathing, preparing meals, shopping, managing finances, etc.?: No Are you currently unemployed and looking for a job?: No Are you interested in more education?: No Please select the resources that you would like help with: None Currently or been in a relationship where the following occur: no concerns reported AUDIT C Alcohol Use Questionnaire (AUDIT-C) 1. How often do you have a drink containing alcohol?: Monthly or less 2. How many drinks containing alcohol do you have on a typical day when you are drinking?: 1 or 2 3. How often do you have six or more drinks on one occasion?: Never Total Score: 1 Score Reviewed/Action Taken: No MEIR-7 AMB Questionnaire MEIR-7 Date MEIR - 7 assessed: 02/19/23 Feeling nervous, anxious, or on edge: 0 = Not at all Not being able to stop or control worryin = Not at all Worrying too much about different things: 0 = Not at all Trouble relaxin = Not at all Being so restless that it is hard to sit still: 0 = Not at all Becoming easily annoyed or irritable: 0 = Not at all Feeling afraid as if something awful might happen: 0 = Not at all Total MEIR-7 score (0-4 normal; 5-9 mild; 10-14 moderate; 15-21 severe): 0 Source: Developed by Drs. Allan Canales, Kitty Hughes, Bryan Colmenares and colleagues, with an educational michael from [employer]. MEIR-7 Assessment Billing MEIR-7 Assessment Tool: MEIR-7 Assessment 02073 Review of Systems Const All systems reviewed & are unremarkable except as noted in HPI and below Eyes Reports no additional complaints, Denies change in vision and Denies other visual disturbances Card Denies chest pain at rest, Denies chest pain with activity, Denies edema, Denies irregular heart rhythm, Denies claudication, Denies dyspnea, Denies dyspnea on exertion, Denies orthopnea, Denies paroxysmal nocturnal dyspnea and Denies slow heart rate Resp Denies cough, Denies dyspnea and Denies dyspnea on exertion GI Denies abdominal pain, Denies change in bowel habits, Denies excessive flatus, Denies nausea and Denies vomiting Denies urinary incontinence, Denies urinary hesitancy and Denies urinary urgency Musc Denies abnormal gait, Denies atrophy, Denies deformity, Reports arthralgias and Denies limited range of motion Skin/Breast Denies bleeding lesions, Denies changing lesions and Denies rash Neuro Denies abnormal gait, Denies behavioral changes, Denies confusion and Denies lack of coordination Psych Denies behavioral changes and Denies confusion Physical exam (Primary Care) Vital Signs: Last Vital Signs Pulse 90 02/19/23 07:32 BP 142/90 H 02/19/23 07:32 Pulse Ox 99 02/19/23 07:32 Oxygen Delivery Method Room Air 02/19/23 07:32 BMI result Body Mass Index 48.5 Tobacco/Smoking Status: Tobacco use Status Tobacco use date assessed 02/19/23 02/19/23 07:38 Patient Tobacco Use Status Never used Tobacco 02/19/23 07:38 e-Cigarette/Vaping Use Never Used 02/19/23 07:38 PHQ-9: PHQ-9 Score PHQ-9: Total score 0 02/19/23 07:49 Depression Screening Interpretation: Negative Thrive Assessment: Date of Thrive Assessment Date Thrive assessed 02/19/23 02/19/23 07:38 Currently or been in a relationship where the following occur: no concerns reported Const General: No confusion Orientation/consciousness: patient oriented x3 and No confusion HENMT Head: Yes normal to inspection, Yes normocephalic and Yes atraumatic Ears: external ears normal Eyes General: appearance normal, both eyes and all related structures Eyelids: Yes eyelids normal Conjunctivae: conjunctivae normal Neck Neck: Yes normal visual inspection and Yes supple Resp Effort & Inspection: normal respiratory effort Auscultation: clear to auscultation bilaterally Cardio Jugular venous distension: no JVD Rate: regular rate Rhythm: regular rhythm Heart sounds: S1 normal heart sound present and S2 normal heart sound present GI Inspection: Yes normal to inspection Palpation (GI): Soft to palpation and nontender Auscultation: normal bowel sounds Skin General skin exam: no rashes or lesions noted Neuro General: patient oriented x3, no focal motor deficits and No confusion Extrem General: Yes full ROM Psych Appearance: grossly normal Office Procedures Flu Questionnaire Does the patient have a severe egg allergy?: No Does the patient have severe life threatening allergies?: No Does the patient have a fever or illness today?: No Has the patient ever had Guillain-[place] Syndrome?: No Has the patient ever had any past reaction to a flu shot?: No Immunizations flu vacc [id number] 6mos up(PF) 60 mcg(15 mcgx4)/0.5 mL IM syringe Performing Provider: Caryl Henriquez MD Performing Location: [facility] Administered by: NICKI Gallagher on 02/19/23 07:39 Dose Route Admin Location Dispensed Lot Number Expiration Date NDC Armature Tester 0.5 mL IM Left Deltoid 0.5 mL [id number] 10/05/23 [id number] [employer] VIS Given Date VIS Provided VIS Publication Date 02/19/23 Single Vaccine 20 Eligibility Eligibility Date Funding Source Not VFC Eligible 02/19/23 Private Assessment and Plan Assessment & Plan (1) Physical exam: Code(s): Z00.00 - Encounter for general adult medical examination without abnormal findings Plan: Repeat in a year. (2) Morbid obesity: Code(s): E66.01 - Morbid (severe) obesity due to excess calories Plan: Continue diet and exercise. BMI goal is less than 30. Follow-up with weight management. Orders: Orders T Spot TB Today Z11.1 - Encounter for screening for respiratory tuberculosis UA CC w/rflx Micro + Cult Today R30.0 - Dysuria Influenza [id number] Immunization Today Z23 - Encounter for immunization US venous duplex LE LT Today M79.605 - Pain in left leg Coding Level of Care Code Est Pt Prev Care 18-39y(19110) Diagnoses Physical exam Z00.00 Morbid obesity E66.01 Additional Codes MEIR-7 Assessment Billing - MEIR-7 Assessment Tool: MEIR-7 Assessment 33432 ([id number]) Time Spent (min) 32
[2023-02-19 07:32] VITALS: BP 142/90; PULSE 90; O2SAT 99; BMI 48.5
== END 2023-02-19 08:01 | disposition home or self-care (01) ==
PROVIDERS: PCP Internal Medicine; Visit Provider Internal Medicine
DX: Z00.00 Encounter for general adult medical examination without abnormal findings (principal); E66.01 Morbid (severe) obesity due to excess calories; Z68.42 Body mass index [BMI] 45.0-49.9, adult; Z23 Encounter for immunization
CPT/HCPCS: 90471; 90686; 99395

== ENCOUNTER 2023-02-25 14:26 | Outpatient (REF) | payer OTHER, SELFPAY ==
--- NOTE | ~2023-02-25 | US_ITS ---
EXAMINATION: US VENOUS ULTRASOUND WITH DOPPLER LOWER EXTREMITY, LEFT CLINICAL INFORMATION: Pain COMPARISON: None available. TECHNIQUE: Ultrasound of the deep veins is performed from the hip to the calf with compression sonography and color and pulse Doppler assessment. Spectral analysis with color-flow imaging is performed. FINDINGS: There is normal venous compression and respiratory variation and augmented flow. The visualized common femoral vein, superficial femoral vein, profunda femoral vein, popliteal vein, and the trifurcation region shows no evidence of deep venous thrombosis. There is no significant popliteal fossa cyst. If the patient's symptoms persist, followup ultrasound in 5 days 7 days might be of value to exclude proximal propagation from a non-visualized calf vein. US/US venous duplex LE LT IMPRESSION: No DVT demonstrated in the left lower extremity.
== END 2023-02-25 14:27 | disposition home or self-care (01) ==
LOC: HO.US 14:26
PROVIDERS: PCP Internal Medicine; Visit Provider Internal Medicine
DX: M79.605 Pain in left leg (principal)
CPT/HCPCS: 93971

== ENCOUNTER 2023-03-04 15:57 | Outpatient (REF) | payer OTHER, SELFPAY ==
--- NOTE | ~2023-03-04 | MR_ITS ---
EXAMINATION: MR PELVIS WITHOUT AND WITH CONTRAST CLINICAL INFORMATION: Ovarian cysts COMPARISON: 01/16/2023 pelvic ultrasound TECHNIQUE: Multiple routine MRI sequences through the pelvis were obtained on a high-field 1.5 Tatiana MRI. Pre and postcontrast images were evaluated. 10 mL of gadolinium based intravenous contrast was utilized without incident. FINDINGS: Anteroverted uterus measuring 10.4 x 4.7 x 6.3 cm in size. IUD artifact is seen within the unremarkable endometrial cavity. Junctional zone is within normal limits for size. Ovaries are posterior to the uterus and touching with the mixed precontrast T1 bright signal in the right ovary measuring 3.9 x 2.6 x 2.3 cm in size. Although this could just represent a hemorrhagic ovarian cyst, the positioning of the ovaries which are directly contiguous with each other raises the possibility for endometriosis as underlying etiology. Overall the right ovary and cyst measures 5.1 x 2.4 x 3.7 cm in size. The contralateral left ovary also demonstrates prominent follicles which demonstrate more simple appearing signal. Overall the left ovary measures 4.6 x 3.0 x 5.6 cm in size. Small amount of free fluid in the dependent portion of the pelvis. Bladder is decompressed and unremarkable. Urethra and periurethral tissues unremarkable. No suspicious bone marrow signal abnormality. Symmetric muscle signal MR/MR pelvis wo/w con IMPRESSION: 1. There is a mixed precontrast T1 bright cystic lesion in the right ovary as described above. Although this could just represent a hemorrhagic ovarian cyst, the positioning of the ovaries which are directly contiguous with each other raises the possibility for endometriosis as underlying etiology. 2. The contralateral left ovary also demonstrates prominent follicles which demonstrate more simple appearing signal.
[2023-03-04] MEDS: gadobutroL 10 ML VIAL IVPUSH (17:09)
== END 2023-03-04 15:58 | disposition home or self-care (01) ==
LOC: HO.MRI 15:57
PROVIDERS: PCP Internal Medicine; Visit Provider Advanced Practice Midwife
DX: N83.209 Unspecified ovarian cyst, unspecified side (principal)
CPT/HCPCS: 72197; A9585

== ENCOUNTER 2023-03-07 13:48 | Outpatient (AMB) | payer OTHER, SELFPAY ==
--- NOTE | 2023-03-07 13:22 | MHC.OFFVISWM ---
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 Allergies No Known Allergies [No Known Allergies*] Allergy (Verified 02/19/23 07:43) Medication List - Last Reconciled 03/07/23 by GIGI Cortez albuterol sulfate 90 mcg/actuation (ProAir HFA) 2 puffs inhalation Q4-6H PRN bisacodyl (Dulcolax (bisacodyl)) 10 mg MD DAILY PRN cholecalciferol (vitamin D3) 125 mcg PO DAILY 90 days cyanocobalamin (vitamin B-12) 500 mcg PO DAILY 90 days ibuprofen 600 mg PO Q8H PRN levonorgestrel (Mirena) intrauterine thiamine HCl (vitamin B1) 100 mg PO DAILY 90 days vitamin A 3,000 mcg PO DAILY 90 days HPI HPI Comments History of Present Illness Details The patient is a pleasant 33 year old female who returns to the clinic for pre-operative surgical weight loss management. They were last seen in the office on 02/05/23, recorded weight at that time was 312.8 pounds, with a BMI of 49. Today's weight is 302.2 pounds and BMI is 47.3. There has been a weight loss of 28.4 pounds since initiating the surgical weight loss program on 11/26/22 with a total body weight loss of 8.5 %. Pre op work up completed as follows: SWL classes:? 11/12 BH appts: Cleared 12/19/2022 ? ? RD appts: Cleared 12/24/2022 Labs: 12/02/2022-low D, B12:357, A, B1 H. pylori: 02/05/2023-neg CXR: 12/06/2022-nad EKnormal ABD U/S: 01/28/2023-fatty liver UGI: 02/11/2023-gerd, ?hh The patient reports things are going well. She states that the constipation has resolved. Current meal plan includes: Work days: Start with 3 Organ shakes ([employer], [employer], [employer]), First shake (2 scoops in 8 oz low fat unsweetened almond milk or water) at 11am-1pm Second shake (1 scoop in 8 oz low fat unsweetened almond milk or water) at 3pm-5pm 1 protein bar (fit crunch bars at [employer], [employer], or [employer]) at 6pm-8pm. Dinner at 11pm (10 forks of protein and 10 forks of salad/vegetables). Another shake with 1 scoop in 8 oz unsweetened almond milk at 1am-3am. 1 protein bar (fit crunch bars at [employer], [employer], or [employer]) at 4am-6am. Non work days: Start with 3 Orgain shakes ([employer], [employer], [employer]) First shake (2 scoops in 8 oz low fat unsweetened almond milk or water) at 7am-9am, Second shake (2 scoops in 8 oz low fat unsweetened almond milk or water) 10am-12pm 1 protein bar (fit crunch bars at [employer], [employer], or [employer]) at 1pm-3pm. Last shake (1 scoop in 8 oz unsweetened almond milk or water) at 4pm-6pm Dinner at 6pm (10 forks of protein and 10 forks of salad/vegetables). Drinking 80 oz of water Current exercise plan includes: treadmill or eliptical, 4 days per week, 600-700 calories burned pelaton 2-3 days per week, 200 calories. [facility] Surgical History No history of previous surgery Family History Maternal Grandmother HTN (hypertension) Paternal Grandmother HTN (hypertension) Diabetes mellitus Paternal Grandfather HTN (hypertension) Diabetes mellitus Alzheimer disease Maternal Aunt Breast cancer Paternal Aunt Breast cancer Social History Housing: House Alcohol intake: current Alcohol intake frequency: holidays/special occasions only Alcohol type: wine Patient Tobacco Use Status: Never used Tobacco e-Cigarette/Vaping Use: Never Used Second Hand Smoke Exposure: No service: No Current occupational status: employed Current occupational exposures/hazards: No Gender identity: Female Cognitive needs: No Hearing needs: No Vision needs: Yes Female Reproductive History Menstrual Age of Menarche: 10 Review of Systems Const All systems reviewed & are unremarkable except as noted in HPI and below Assessment & Plan Assessment & Plan (1) Morbid obesity: Code(s): E66.01 - Morbid (severe) obesity due to excess calories Plan: change meal plan: Work days: Start with 3 Organ shakes ([employer], [employer], [employer]), First shake (2 scoops in 8 oz low fat unsweetened almond milk or water) at 11am-1pm Second shake (1 scoop in 8 oz low fat unsweetened almond milk or water) at 3pm-5pm 1 protein bar (fit crunch bars at [employer], [employer], or [employer]) at 6pm-8pm. Dinner at 11pm (8 forks of protein and 8 forks of salad/vegetables). Another shake with 1 scoop in 8 oz unsweetened almond milk at 1am-3am. 1 protein bar (fit crunch bars at [employer], [employer], or [employer]) at 4am-6am. Non work days: Start with 3 Orgain shakes ([employer], [employer], [employer]) First shake (2 scoops in 8 oz low fat unsweetened almond milk or water) at 7am-9am, Second shake (1 scoop in 8 oz low fat unsweetened almond milk or water) 10am-12pm 1 protein bar (fit crunch bars at [employer], [employer], or [employer]) at 1pm-3pm. Last shake (1 scoop in 8 oz unsweetened almond milk or water) at 4pm-6pm Dinner at 6pm (8 forks of protein and 8 forks of salad/vegetables). Plan to transfer to Dr Jackson for continued pre-op planning Continue to text me weekly until f/u with him Telehealth Telehealth Location of provider rendering services: practice address Location of patient: address on file Patient Identification confirmed using: Name, : Yes Telehealth method: voice only Patient verbally consented to treatment: Yes Patient verbally consented to billing insurance company: Yes Patient informed of any privacy concerns related to visit: Yes Minutes spent on Phone/Video with Pt.: 15 Coding Level of Care Code Tele Est Pt Level 3 (28326) Diagnoses Morbid obesity E66.01 Time Spent (min) 18
[2023-03-07 13:29] VITALS: BMI 47.3
== END 2023-03-07 13:55 | disposition home or self-care (01) ==
LOC: HO.HBS 13:48
PROVIDERS: PCP Internal Medicine; Visit Provider Physician Assistant Surgical
DX: E66.01 Morbid (severe) obesity due to excess calories (principal)
CPT/HCPCS: 99213

== ENCOUNTER → 2023-03-07 13:48 | Outpatient (BNVA) | payer OTHER, SELFPAY | PROVIDERS: PCP Internal Medicine; Visit Provider Physician Assistant Surgical ==

== ENCOUNTER 2023-03-25 11:15 | Outpatient (AMB) | payer OTHER, SELFPAY ==
--- NOTE | 2023-03-25 11:19 | A.OFFVIS_ITS ---
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 She does not report any pelvic pain. She is concerned that she had 2 cycles over the last months with her Mirena in place, she typically does not bleed cyclically. [facility] Surgical History No history of previous surgery Family History Maternal Grandmother HTN (hypertension) Paternal Grandmother HTN (hypertension) Diabetes mellitus Paternal Grandfather HTN (hypertension) Diabetes mellitus Alzheimer disease Maternal Aunt Breast cancer Paternal Aunt Breast cancer Social History Housing: House Alcohol intake: current Alcohol intake frequency: holidays/special occasions only Alcohol type: wine Patient Tobacco Use Status: Never used Tobacco e-Cigarette/Vaping Use: Never Used Second Hand Smoke Exposure: No service: No Current occupational status: employed Current occupational exposures/hazards: No Gender identity: Female Cognitive needs: No Hearing needs: No Vision needs: Yes Female Reproductive History Menstrual Age of Menarche: 10 Review of Systems Const All systems reviewed & are unremarkable except as noted in HPI and below Endo Reports no additional complaints Physical Exam Vital Signs: Last Vital Signs BP 126/82 03/25/23 11:20 BMI result Body Mass Index 47.3 Const General: cooperative, healthy appearing and no acute distress Psych Appearance: well kempt Attitude: cooperative Thought process: Normal thought process present Results Reviewed Results Reviewed: [address] [address] Magnetic Resonance Report Signed Patient: Lisa Goodrich MR#: [id number] : 1990 Acct:[id number] Age/Sex: 33 / F ADM Date: 03/04/23 Loc: HO.MRI Attending Dr: Linnette Carmen CNM Ordering Physician: Linnette Carmen CNM Date of Service: 03/04/23 Procedure(s): MR pelvis wo/w con Accession Number(s): [id number] cc: Linnette Carmen CNM; Caryl Horvath MD~ EXAMINATION: MR PELVIS WITHOUT AND WITH CONTRAST CLINICAL INFORMATION: Ovarian cysts COMPARISON: 01/16/2023 pelvic ultrasound TECHNIQUE: Multiple routine MRI sequences through the pelvis were obtained on a high-field 1.5 Tatiana MRI. Pre and postcontrast images were evaluated. 10 mL of gadolinium based intravenous contrast was utilized without incident. FINDINGS: Anteroverted uterus measuring 10.4 x 4.7 x 6.3 cm in size. IUD artifact is seen within the unremarkable endometrial cavity. Junctional zone is within normal limits for size. Ovaries are posterior to the uterus and touching with the mixed precontrast T1 bright signal in the right ovary measuring 3.9 x 2.6 x 2.3 cm in size. Although this could just represent a hemorrhagic ovarian cyst, the positioning of the ovaries which are directly contiguous with each other raises the possibility for endometriosis as underlying etiology. Overall the right ovary and cyst measures 5.1 x 2.4 x 3.7 cm in size. The contralateral left ovary also demonstrates prominent follicles which demonstrate more simple appearing signal. Overall the left ovary measures 4.6 x 3.0 x 5.6 cm in size. Small amount of free fluid in the dependent portion of the pelvis. Bladder is decompressed and unremarkable. Urethra and periurethral tissues unremarkable. No suspicious bone marrow signal abnormality. Symmetric muscle signal MR/MR pelvis wo/w con IMPRESSION: 1. There is a mixed precontrast T1 bright cystic lesion in the right ovary as described above. Although this could just represent a hemorrhagic ovarian cyst, the positioning of the ovaries which are directly contiguous with each other raises the possibility for endometriosis as underlying etiology. 2. The contralateral left ovary also demonstrates prominent follicles which demonstrate more simple appearing signal. Dictated By: Vic Post MD Signed By: <Electronically signed by Vic Post MD in OV> 03/08/23 1619 DD/ 1653 TD/TT: Athletic Field Custodian: MO Assessment & Plan Assessment & Plan (1) Endometrioma: Code(s): N80.129 - Deep endometriosis of ovary, unspecified ovary (2) Encounter to discuss test results: Code(s): Z71.2 - Person consulting for explanation of examination or test findings Plan Discussed: Ultrasound findings possible right-sided endometrioma, verses hemorrhagic cyst. Patient is asymptomatic. Counseled regarding endometrioma cysts, endometriosis, hemorrhagic cyst. Use of the Internet website pictures on endometriosis, endometriomas in hemorrhagic cyst reviewed. Offered surgical consult if needed, versus expectant management. Plan is expectant management with a follow-up ultrasound in 6 months. Patient advised to call if there is any pain or heavy prolonged bleeding. Variations in bleeding patterns with the Mirena IUD can include amenorrhea, irregular cycle and regular cycles. 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 All of her questions and concerns were addressed to the best of my ability and shared decision making. She is agreeable to the plan of care. Orders: Orders US OB pelvic and transvaginal 6 Months N80.129 - Deep endometriosis of ovary, unspecified ovary Coding Level of Care Code Est Pt Level 3 (24035) Diagnoses Endometrioma N80.129 Encounter to discuss test results Z71.2
[2023-03-25 11:20] VITALS: BP 126/82; BMI 47.3
== END 2023-03-25 11:38 | disposition home or self-care (01) ==
PROVIDERS: PCP Internal Medicine; Visit Provider Advanced Practice Midwife
DX: N80.129 Deep endometriosis of ovary, unspecified ovary (principal); Z71.2 Person consulting for explanation of examination or test findings
CPT/HCPCS: 99213

== ENCOUNTER → 2023-03-25 11:15 | Outpatient (BNVA) | payer OTHER, SELFPAY | PROVIDERS: PCP Internal Medicine; Visit Provider Advanced Practice Midwife ==

== ENCOUNTER 2023-03-26 08:07 | Outpatient (AMB) | payer OTHER, SELFPAY ==
--- NOTE | 2023-03-26 10:44 | MHC.OFFVISWM ---
Intake VS Expanded 03/26/23 11:00 Height 5 ft 7 in Weight 295 lb 2 oz BMI 46.2 Body Fat % 61.2 Body Fat Mass 180.6 Fat Free Mass 114.6 Visceral Fat Rating 26 Body Water % 26.6 Body Water Mass 78.5 Basal Metabolic Rate/Score 1,478 Intake Visit Reasons: TV Consult/Transfer Vic Allergies No Known Allergies [No Known Allergies*] Allergy (Verified 03/26/23 10:44) Medication List - Last Reconciled 03/26/23 by Koby Maria MD bisacodyl (Dulcolax (bisacodyl)) [address] DAILY PRN cholecalciferol (vitamin D3) 125 mcg PO DAILY 90 days cyanocobalamin (vitamin B-12) 500 mcg PO DAILY 90 days levonorgestrel (Mirena) intrauterine thiamine HCl (vitamin B1) 100 mg PO DAILY 90 days vitamin A 3,000 mcg PO DAILY 90 days HPI TV Consult/Transfer Vic HPI Details Start time: 10.30am, End time: 11.05am ?I spent 30 minutes speaking with the patient on the phone plus an additional 5 minutes reviewing and updating records for a total of 35 minutes HPI Comments History of Present Illness Details Overall weight loss: 35.5lbs, or 10.73% TBWL Is doing One Orgain protein shakes (2 scoops in 8oz water), 2 Orgain protein shakes (1 scoop each in 8oz water), 1-2 Fit Crunch protein bars and one meal (8 forks of protein and 8 forks of salad or vegetables) Exercise: gym x4-5/wk doing treadmill for 400-500 calories and home Peloton 2/wk for 200 calories PFSH Surgical History No history of previous surgery Family History Maternal Grandmother HTN (hypertension) Paternal Grandmother HTN (hypertension) Diabetes mellitus Paternal Grandfather HTN (hypertension) Diabetes mellitus Alzheimer disease Maternal Aunt Breast cancer Paternal Aunt Breast cancer Social History Housing: House Alcohol intake: current Alcohol intake frequency: holidays/special occasions only Alcohol type: wine Patient Tobacco Use Status: Never used Tobacco e-Cigarette/Vaping Use: Never Used Second Hand Smoke Exposure: No service: No Current occupational status: employed Current occupational exposures/hazards: No Gender identity: Female Cognitive needs: No Hearing needs: No Vision needs: Yes Female Reproductive History Menstrual Age of Menarche: 10 Assessment & Plan Assessment & Plan (1) Morbid obesity: Code(s): E66.01 - Morbid (severe) obesity due to excess calories Plan: 1. Plan for lap sleeve gastrectomy including upper GI endoscopy. All tests has been completed and reviewed and the patient is cleared for the surgery. ?If diaphragmatic or ventral hernias are present at time of surgery, these will be repaired laparoscopically as well. Risks and complications were discussed in detail including possible conversion to an open procedure, anastomotic leak, bleeding requiring transfusion, small bowel obstruction, , DVT and pulmonary embolism, cardiac, or pulmonary complications, as care home complications such as anastomotic ulcer, insufficient weight loss and vitamin deficiencies. I emphasized the importance of close follow-up, adherence to instructions and good communication. So far she has proven to be an excellent communicator and very compliant with all our directions accomplishing a great weight loss. I believe that she is an excellent candidate and she is ready. 2. Continue same nutritional plan of One Orgain protein shakes (2 scoops in 8oz water), 2 Orgain protein shakes (1 scoop each in 8oz water), 1-2 Fit Crunch protein bars and one meal (8 forks of protein and 8 forks of salad or vegetables) 3. Exercise: continue gym x4-5/week doing treadmill for 400-500 calories and home Peloton 2/week for 200 calories 4. Send me weight measurements weekly on Tuesdays Telehealth Telehealth Location of provider rendering services: practice address Location of patient: address on file Patient Identification confirmed using: Name, : Yes Telehealth method: voice only Patient verbally consented to treatment: Yes Patient verbally consented to billing insurance company: Yes Patient informed of any privacy concerns related to visit: Yes Minutes spent on Phone/Video with Pt.: 35 Coding Level of Care Code Tele Est Pt Level 4 (32420) Diagnoses Morbid obesity E66.01 Time Spent (min) 35
[2023-03-26 11:00] VITALS: BMI 46.2
== END 2023-03-26 11:06 | disposition home or self-care (01) ==
LOC: HO.HBS 08:07
PROVIDERS: PCP Internal Medicine; Visit Provider Surgery
DX: E66.01 Morbid (severe) obesity due to excess calories (principal)
CPT/HCPCS: 99214

== ENCOUNTER → 2023-03-26 08:07 | Outpatient (BNVA) | payer OTHER, SELFPAY | PROVIDERS: PCP Internal Medicine; Visit Provider Surgery ==

== ENCOUNTER 2023-04-09 08:14 | Outpatient (AMB) | payer OTHER, SELFPAY ==
--- NOTE | 2023-04-09 11:49 | MHC.OFFVISWM ---
Intake VS Expanded 04/09/23 12:03 Height 5 ft 7 in Weight 288 lb 2 oz BMI 45.1 Body Fat % 59.5 Body Fat Mass 171.4 Fat Free Mass 116.6 Visceral Fat Rating 25 Body Water % 27.8 Body Water Mass 80.1 Basal Metabolic Rate/Score 1,496 Intake Visit Reasons: TV Pre Op LSG 04/22/23 Allergies No Known Allergies [No Known Allergies*] Allergy (Verified 04/09/23 11:49) Medication List - Last Reconciled 04/09/23 by Koby Maria MD bisacodyl (Dulcolax (bisacodyl)) 10 mg [place] DAILY PRN cholecalciferol (vitamin D3) 125 mcg PO DAILY 90 days cyanocobalamin (vitamin B-12) 500 mcg PO DAILY 90 days levonorgestrel (Mirena) intrauterine ondansetron 4 mg PO Q12H pantoprazole 40 mg PO DAILY polyethylene glycol 3350 (Miralax) 17 grams PO DAILY sucralfate 10 mL PO BID thiamine HCl (vitamin B1) 100 mg PO DAILY 90 days vitamin A 3,000 mcg PO DAILY 90 days HPI TV Pre Op LSG 04/22/23 HPI Details Start time: 11.44am, End time: 12.14pm ?I spent 25 minutes speaking with the patient on the phone plus an additional 5 minutes reviewing and updating records for a total of 30 minutes HPI Comments History of Present Illness Details Overall weight loss: 42.5lbs, or 12.85%TBWL Is doing Orgain shake (2 scoops in water), Orgain shake (1 scoop in water), one Fit Crunch protein bar and one meal (8 forks of protein and 8 forks of salad or vegetables) Exercise: doing treadmill for 600 calories x6 days per week and Peloton bike for 200 edel x3-4/wk PFSH Surgical History No history of previous surgery Family History Maternal Grandmother HTN (hypertension) Paternal Grandmother HTN (hypertension) Diabetes mellitus Paternal Grandfather HTN (hypertension) Diabetes mellitus Alzheimer disease Maternal Aunt Breast cancer Paternal Aunt Breast cancer Social History Housing: House Alcohol intake: current Alcohol intake frequency: holidays/special occasions only Alcohol type: wine Patient Tobacco Use Status: Never used Tobacco e-Cigarette/Vaping Use: Never Used Second Hand Smoke Exposure: No service: No Current occupational status: employed Current occupational exposures/hazards: No Gender identity: Female Cognitive needs: No Hearing needs: No Vision needs: Yes Female Reproductive History Menstrual Age of Menarche: 10 Assessment & Plan Assessment & Plan (1) Morbid obesity: Code(s): E66.01 - Morbid (severe) obesity due to excess calories Plan: 1. Plan for lap sleeve gastrectomy including upper GI endoscopy. All tests has been completed and reviewed and the patient is cleared for the surgery. ?If diaphragmatic or ventral hernias are present at time of surgery, these will be repaired laparoscopically as well. 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 I emphasized the importance of close follow-up, adherence to instructions and good communication. So far she has proven to be an excellent communicator and very compliant with all our directions accomplishing a great weight loss. I believe that she is an excellent candidate and she is ready. 2. Preop prescriptions were provided and explained the purpose of each one. Need to be purchased preop. Start Pantoprazole now as you get it from the pharmacy, 1 pill per day. Sucralfate and Zofran are for after surgery as needed. 3. Bowel prep: please do 7 packets ?of Miralax mixing each one with a an 8oz glass of water, crystal light, gatorade zero, or propel ?on 04/20/23 and the same amount on 04/21/23. Continue the protein shakes during? the bowel prep. 4. Needs to purchase 1oz medicine cups . 5. Needs to purchase Children's liquid Tylenol for postop pain control. 6. Avoid aspirin, motrin, Advil, Aleve, Ibuprofen, Naproxyn. Tylenol is OK. 7. She needs to purchase the Celebrate 4:1 protein shakes from the hospital's gift [facility]. 8. Will do basic preop blood work-up any day between Friday04/14/23 and Friday04/18/23 fasting for 12 hours and is scheduled to see the Anesthesiologist prior to the day of surgery. 9. Importance of adherence to postop folllow-up and recommendations was underscored and she understands that. 10. WORKING DAYS: Stop food and bars as of Friday04/14/23 and continue with 3 Orgain shakes (2 scoops EACH in 8oz water) at 12pm-2pm, 3pm-5pm and 6pm-8pm and three more Orgain protein shakes with ONE scoop each in 8oz water at 12am-2am, 3am-5am and 6am-8am. 11. NUTRITIONAL PLAN FOR OFF DAYS: Stop food and bars as of Friday04/14/23 and continue with 5 Orgain shakes (2 scoops EACH in 8oz water)at 7am-9am, 10am-12pm, 1pm-3pm, 4pm-6pm and at 6pm-8pm 12. No soups, broths or V8 13. The patient's?medical?history has been reviewed and they are considered low risk for post op DVT and therefore DVT prophylaxis is not considered necessary. Travel after surgery was reviewed. The patient has not disclosed any travel plans during the first 30 days after surgery and they have been advised that within the first 30 days after surgery any bus, plane, train or car travel over 2 hours in duration is contraindicated due to the possibility of developing blood clots from immobility. Any travel, needs to include periods of ambulation of 10 minutes in duration every 2 hours.? Patient was instructed to discuss any plans for travel during this period with their bariatric surgeon.? 14. Please take at the day of surgery the following medications: NONE 15. Stop any control pills and don't use them for one month after surgery 16. Absolutely no smoking or vaping, or marijuana until the surgery and for at least the first 4 weeks. Only nicotine patches are allowed. 17. Send me weight measurements on Tuesdays and then on Friday04/22/23 the day of surgery before you go to the hospital. 18. Avoid any steroids by mouth for any reason. Let me know if someone prescribes them to you 19. These instructions supersede anything else you read in the handbook, anything you watched in videos or classes or you were told by any other provider. If there is any conflict, you follow the above instructions and nothing else. Orders: Orders Comprehensive Met. Panel Today E66.01 - Morbid (severe) obesity due to excess calories Lipid Panel Today E66.01 - Morbid (severe) obesity due to excess calories Hemoglobin A1c Today E66.01 - Morbid (severe) obesity due to excess calories TSH reflex Free T4 Today E66.01 - Morbid (severe) obesity due to excess calories Prothrombin Time INR Today E66.01 - Morbid (severe) obesity due to excess calories Type and Screen Today E66.01 - Morbid (severe) obesity due to excess calories Partial Thromboplastin Time Today E66.01 - Morbid (severe) obesity due to excess calories C Reactive Protein Today E66.01 - Morbid (severe) obesity due to excess calories Complete Blood Count Auto Diff Today E66.01 - Morbid (severe) obesity due to excess calories Insulin Today E66.01 - Morbid (severe) obesity due to excess calories Medications: New pantoprazole 40 mg PO DAILY 90 tabs 0RF K21.9 - Gastro-esophageal reflux disease without esophagitis sucralfate 10 mL PO BID 600 mL 2RF K21.9 - Gastro-esophageal reflux disease without esophagitis ondansetron Only take one every 12 hours as needed if you have nausea 4 mg PO Q12H 20 tabs 0RF nausea and vomiting R11.0 - Nausea polyethylene glycol 3350 (Miralax) Mix each packet with 8oz of water, Crystal light, or Gatorade zero, or Propel and do 7 packets on 04/20/22 and another 7 packets on 04/21/22 17 grams PO DAILY 14 ea 0RF Z01.818 - Encounter for other preprocedural examination Telehealth Telehealth Location of provider rendering services: practice address Location of patient: address on file Patient Identification confirmed using: Name, : Yes Telehealth method: voice only Patient verbally consented to treatment: Yes Patient verbally consented to billing insurance company: Yes Patient informed of any privacy concerns related to visit: Yes Minutes spent on Phone/Video with Pt.: 30 Coding Level of Care Code Tele Est Pt Level 4 (93261) Diagnoses Morbid obesity E66.01 Time Spent (min) 30
[2023-04-09 12:03] VITALS: BMI 45.1
== END 2023-04-09 12:15 | disposition home or self-care (01) ==
LOC: HO.HBS 08:14
PROVIDERS: PCP Internal Medicine; Visit Provider Surgery
DX: E66.01 Morbid (severe) obesity due to excess calories (principal)
CPT/HCPCS: 99214

== ENCOUNTER → 2023-04-09 08:14 | Outpatient (BNVA) | payer OTHER, SELFPAY | PROVIDERS: PCP Internal Medicine; Visit Provider Surgery ==

== ENCOUNTER 2023-04-10 04:55 | Outpatient (REF) | payer OTHER, SELFPAY | END 2023-04-10 04:56 | disposition home or self-care (01) | LOC: HO.LAB 04:55 | PROVIDERS: Visit Provider Physician Assistant | DX: Z11.52 Encounter for screening for COVID-19 (principal); Z20.822 Contact with and (suspected) exposure to COVID-19 | CPT/HCPCS: 0241U ==

== ENCOUNTER 2023-04-22 10:22 | Inpatient (IN) | payer OTHER, SELFPAY ==
[2023-04-14 08:43] LABS: Alanine Aminotransferase 14 U/L (0-31); Alkaline Phosphatase 66 U/L (39-117); Anion Gap 11 (12-20); Aspartate Amino Transferase 19 U/L (5-31); Bilirubin Total 0.5 mg/dL (0.0-1.0); Blood Urea Nitrogen 15 mg/dL (9-16); C Reactive Protein 3.03 mg/dL (< or = 0.50); Calcium 9.8 mg/dL (8.4-10.2); Carbon Dioxide 28 mmol/L (22-29); Chloride 105 mmol/L (96-108); Cholesterol 175 mg/dL (<200); Estimated Glomerular Filt Rate > 60; Glucose Random 88 mg/dL (60-115); HDL Cholesterol 36 mg/dL (>40); LDL Cholesterol Calculated 118 mg/dL (<100); Sodium 140 mmol/L (135-145); Triglycerides 108 mg/dL (<150)
[2023-04-14 08:59] LABS: Insulin 12 uU/mL (2-29); TSH reflex Free T4 1.02 uIU/mL (0.32-4.0)
[2023-04-14 12:22] VITALS: BMI 45.1
--- NOTE | 2023-04-18 23:35 | MHC.SHP ---
Pre-Procedural Eval Section A Date of Service: 04/18/23 The patient is an INPATIENT: Yes The History & Physical has been completed within 30 days and I have reviewed it.: Yes Section B Chief Complaint: Morbid (severe) obesity due to excess calories Relevant Family History (Specify if Yes): No Relevant Social History: None Present Medications: None Medical History: No relevant PMH History of Previous Operations: No relevant previous surgery Allergies: Allergies Allergy/AdvReac Type Severity Reaction Status Date / Time No Known Allergies Allergy Verified 04/09/23 11:49 [No Known Allergies*] Review of Systems Sugical H&P ROS: Negative: Constitution, Cardiovascular, Respiratory, Neurological, Psychiatric, Hem-Onc, Allergic/Immunologic, Gastrointestinal, Genitourinary, Musculoskeletal, Integumentary, Endocrine and Eyes/Ears/Nose/Throat Exam Surgical H&P Exam: Normal: HEENT, Normal: Heart, Normal: Lungs, Normal: Extremities, Normal: Abdomen, Normal: Skin and Normal: Neurological Plan Diagnosis/Plan: Unchanged I have reviewed the history and physical and performed a pertinent physical examination on my patient. No changes have occurred unless specified. Time Spent With Patient Time: Total time managing care of this patient today ____ minutes.
--- NOTE | 2023-04-21 08:59 | P.CONAN_ITS ---
Documented by User: Carri Pascal NP 04/21/23 08:59 [facility] Active Problems Active Problems: All Active Problems (Updated 04/14/23 @ 12:00 by Janice Spicer RN) Microscopic hematuria (Acute) Left leg pain (Acute) Physical exam (Acute) Constipation (Acute) Morbid obesity (Acute) Ovarian cyst (Acute) PID (acute pelvic inflammatory disease) (Acute) IUD surveillance (Acute) Counseling for control regarding intrauterine device (IUD) (Acute) Potential exposure to STD (Acute) Well woman exam with routine gynecological exam (Acute) Past Medical History Medical History GERD (gastroesophageal reflux disease) No pertinent past medical history Family History Family History Maternal Grandmother HTN (hypertension) Paternal Grandmother HTN (hypertension) Diabetes mellitus Paternal Grandfather HTN (hypertension) Diabetes mellitus Alzheimer disease Maternal Aunt Breast cancer Paternal Aunt Breast cancer Surgical History Surgical History No history of previous surgery Social History Social History Housing: House Are you a primary nurse wound care to a significant other at home: No Do you presently have visiting nurse or other home services: No Alcohol intake: current Alcohol intake frequency: does not drink Alcohol type: wine Patient Tobacco Use Status: Never used Tobacco e-Cigarette/Vaping Use: Never Used Second Hand Smoke Exposure: No Use of substances other than those prescribed or required for medical reasons: No Have you been hit, kicked, punched, or otherwise hurt by someone within the past year? If so, by whom?: No Advance Directives: No Advance Directives Information Provided: No Advance Directives on File: No Recently lost weight without trying: No Eating poorly because of decreased appetite: No Nutrition Risks: No Nutritional Risk Patient : No : No Poor oral hygiene: No service: No Current occupational status: employed Current occupational exposures/hazards: No Gender identity: Female Cognitive needs: No Hearing needs: No Vision needs: Yes Meds Allergies Allergy/AdvReac Type Severity Reaction Status Date / Time No Known Allergies Allergy Verified 04/22/23 10:27 [No Known Allergies*] Home Medications Medication Instructions Recorded Confirmed Last Taken Type levonorgestrel 21 mcg/24 hours (8 1 device intrauterine DIRECTED 04/04/21 04/22/23 Unknown History yrs) 52 mg intrauterine device (Mirena) ondansetron 4 mg disintegrating 4 mg PO Q12H PRN nausea and 04/22/23 04/22/23 Unknown History tablet vomiting pantoprazole 40 mg tablet,delayed 40 mg PO DAILY@0630 04/22/23 04/22/23 04/21/23 History release Exam Height,Weight and Vital Signs: Height 5 ft 7 in Weight 130.635 kg Pertinent Lab Results Pertinent Lab Results: Laboratory Tests 04/14/23 04/14/23 07:47 08:01 WBC 9.3 RBC 5.03 Hgb 13.4 Hct 41.5 MCV 82.5 MCH 26.6 L MCHC 32.3 RDW 15.5 Plt Count 381 MPV 9.8 Immature Gran % (Auto) 0.2 Neut % (Auto) 54.3 Lymph % (Auto) 35.8 Mineral % (Auto) 6.7 Eos % (Auto) 2.4 Baso % (Auto) 0.6 Lymph # (Auto) 3.3 Mineral # (Auto) 0.6 Eos # (Auto) 0.2 Baso # (Auto) 0.1 Abs Immat Gran (auto) 0.02 Absolute Neuts (auto) 5.0 Absolute Nucleated RBC 0.000 Nucleated RBC % (auto) 0.0 PT 12.8 INR 1.1 APTT 30.1 Sodium 140 Potassium 4.0 Chloride 105 Carbon Dioxide 28 Anion Gap 11 L BUN 15 Creatinine 0.78 Estim Creat Clear Calc TNP Estimated GFR > 60 Random Glucose 88 Estimat Average Glucose 103 Hemoglobin A1c % 5.2 Insulin Level 12 Calcium 9.8 Total Bilirubin 0.5 AST 19 ALT 14 Alkaline Phosphatase 66 C-Reactive Protein 3.03 H Total Protein 8.0 Albumin 4.0 Triglycerides 108 Cholesterol 175 LDL Cholesterol, Calc 118 H HDL Cholesterol 36 L TSH 1.02 Blood Type A Positive Antibody Screen NEGATIVE Narrative Narrative: EKG 12/2022 Vent. Rate : 062 BPM Atrial Rate : 062 BPM P-R Int : 142 ms QRS Dur : 092 ms QT Int : 418 ms P-R-T Axes : 036 013 005 degrees QTc Int : 424 ms Normal sinus rhythm with sinus arrhythmia Normal ECG No previous ECGs available Assessment and Plan Assessment Anesthesia Assessment: Chart Reviewed Documented by User: Robyn Patricia MD 04/22/23 12:44 PMFSH Past Medical History Medical History GERD (gastroesophageal reflux disease) No pertinent past medical history Family History Family History Maternal Grandmother HTN (hypertension) Paternal Grandmother HTN (hypertension) Diabetes mellitus Paternal Grandfather HTN (hypertension) Diabetes mellitus Alzheimer disease Maternal Aunt Breast cancer Paternal Aunt Breast cancer Surgical History Surgical History No history of previous surgery History of Problems with Anesthesia: No Social History Social History Housing: House Are you a primary nurse wound care to a significant other at home: No Do you presently have visiting nurse or other home services: No Alcohol intake: current Alcohol intake frequency: does not drink Alcohol type: wine Patient Tobacco Use Status: Never used Tobacco e-Cigarette/Vaping Use: Never Used Second Hand Smoke Exposure: No Use of substances other than those prescribed or required for medical reasons: No Have you been hit, kicked, punched, or otherwise hurt by someone within the past year? If so, by whom?: No Advance Directives: No Advance Directives Information Provided: No Advance Directives on File: No Recently lost weight without trying: No Eating poorly because of decreased appetite: No Nutrition Risks: No Nutritional Risk Patient : No : No Poor oral hygiene: No service: No Current occupational status: employed Current occupational exposures/hazards: No Gender identity: Female Cognitive needs: No Hearing needs: No Vision needs: Yes Meds Allergies Allergy/AdvReac Type Severity Reaction Status Date / Time No Known Allergies Allergy Verified 04/22/23 10:27 [No Known Allergies*] Home Medications Medication Instructions Recorded Confirmed Last Taken Type levonorgestrel 21 mcg/24 hours (8 1 device intrauterine DIRECTED 04/04/21 04/22/23 Unknown History yrs) 52 mg intrauterine device (Mirena) ondansetron 4 mg disintegrating 4 mg PO Q12H PRN nausea and 04/22/23 04/22/23 Unknown History tablet vomiting pantoprazole 40 mg tablet,delayed 40 mg PO DAILY@0630 04/22/23 04/22/23 04/21/23 History release Exam Airway Mallampati Class: II TM Dist: >3cm Neck ROM: Full Loose/Missing/Broken Teeth: No Heart: RRR Lungs: CTA Assessment and Plan Assessment Anesthesia Assessment: Anesthesia Plan Discussed Final Anesthetic Review History of Problems with Anesthesia: No NPO: Yes ASA Class: III Final Preanesthetic Review: Meds/Allgs Chart Reviewed, Consent Obtained/Reviewed and Anes Risks/Benef Reviewed Patient Risk: Intermediate Procedure Risk: Intermediate Anesthetic Plan Anesthetic Plan: GA Disposition: Standard PACU
[2023-04-22] VITALS (12 sets, daily range): BP systolic 132–165; BP diastolic 64–89; PULSE 56–77; RESP 16–20; TEMP 36.1–36.9; O2SAT 93–99; BMI 45.0; BMI 44.9
[2023-04-22] MEDS: Lactated Ringers 1,000 ML 999 ML IV (10:57)
[2023-04-22] MEDS: Lactated Ringers 1,000 ML 100 ML IVCONT ×2 (10:57→17:58)
[2023-04-22] MEDS: Aprepitant 32 MG/4.4 ML VIAL IVPUSH (10:57)
--- NOTE | 2023-04-22 11:00 | PHA.MEDREC ---
Pharmacy Consult ? Medication Reconciliation Pharmacy has completed the medication reconciliation. Reviewed med rec done by nursing (Annmarie).
[2023-04-22 11:56] LABS: UPreg QC Valid YES; Urine Pregnancy NEGATIVE (NEGATIVE)
--- NOTE | 2023-04-22 12:51 | PM.OP ---
Brief Operative Note Date of Service: 04/22/23 Pre-op diagnosis: Morbid obesity with comorbidities (see below) Post-op diagnosis: same (& congenital abdominal adhesions) Procedure: INITIAL PATIENT BMI ON PRESENTATION AT OUR OFFICE: 52.3 kg/m2 LAST BMI BEFORE SURGERY: 44.8 kg/m2 COMORBIDITIES: liver fibrosis ?The patient presented to the Weight Management Program with significant obesity that was negatively impacting the patient's comorbidities as listed above.? The program is a phased program with a special focus on preoperative medical weight management to promote substantial weight loss and prepare the patients for the second phase of the program: bariatric surgery. The patient participated in an intensive weekly lifestyle ?intervention and exercise program during which the patient ?has lost between the initial office visit and the last preoperative visit 45.3lbs, or 13.7% of initial actual body weight. It was deemed appropriate for the patient to now have bariatric surgery. In light of the current Covid-19 pandemic and the well documented strong association of obesity and increased risk of worse outcomes if infected with Covid-19 (REFERENCES:https://pubmed.ncbi.nlm.nih.gov/64015591/,?https://pubmed.ncbi.nlm.nih.gov/00947116/), any delay in undergoing bariatric surgery may lead to the patient's worsening health condition and increased?risk of more severe Covid-19 disease if infected. In addition a recent?study from [facility] published in [employer] Surgery on 04/02/2021 ([email or web address]) found that, among patients with obesity, substantial weight loss achieved with surgery was associated with improved outcomes of COVID-19 infection. The findings suggest that obesity can be a modifiable risk factor for the severity of COVID-19 infection. In addition, the patient met the BMI-criteria for bariatric surgery based on the BMI on initial presentation. The patient should not be penalized for achieving such weight loss because ?it is not sustainable long-term without surgical intervention and it was achieved in preparation for bariatric surgery ?under my direction and based on my published research ([email or web address]).[email or web address] and?[email or web address].soard.org/article/[email or web address])29236-X/pdf) ?that a 10% preoperative weight loss improves long-term weight loss after surgery and reduces perioperative complications.? Insurance carriers such as [facility] have endorsed my recommendations ?and have included in their policies criteria to include a 10% preoperative weight loss requirement. PROCEDURE: Esophago-gastroscopy, laparoscopic lysis of adhesions, laparoscopic sleeve gastrectomy and laparoscopic gastropexy INDICATIONS: This is a 33 year-old female who was electively scheduled for laparoscopic, possibly open sleeve gastrectomy. The risks and complications of the procedure were discussed with the patient in advance, particularly the possibility of ; pulmonary embolism; staple line leak; bleeding; GERD; cardiac, pulmonary, or renal complications; as well as long-term problems such as insufficient weight loss, vitamin deficiency, strictures, or ulcers. The patient understood all the risks, and was in agreement to proceed with surgery. DESCRIPTION OF PROCEDURE: After informed consent was obtained from the patient, the patient was given preoperative antibiotics, and was transferred to the operating room. After successful induction of general anesthesia, pneumatic compression devices were placed on both lower extremities. An upper endoscopy was performed next. The oropharynx and esophagus appeared to be within normal limits. There was no diaphragmatic hernia present. The stomach was entered. Then after all fluid and air were suctioned and the stomach was fully decompressed, the scope was withdrawn and secured in the mid esophagus. The patient was then prepped and draped in the usual sterile manner, and abdominal access was established at the right upper quadrant with the Allyson technique. A 12 mm blunt port was inserted, and the abdomen was insufflated with CO2 to a pressure of 15 mmHg. Under direct visualization, additional ports were placed, specifically two 5 mm Versi-step ports to the left upper quadrant, and a 5 mm Versi-Step port to the right upper quadrant. 1% lidocaine plain was used to infiltrate all port sites as well as all fascia defects. Following that, the patient was placed in a steep reverse Trendelenburg position. An additional 5 mm port was placed to the right flank for the Mediflex retractor that was used to retract the left lobe of the liver. The gastro-esophageal fat pad was opened with the ultrasonic device (Thboberbeat, Olympus) and the anterior esophagus and hiatus were exposed. The angle of His was opened with the ultrasonic device the fundus of the stomach from any diaphragmatic and splenic attachments. I then opened the gastrocolic ligament between the transverse colon and the greater curvature of the stomach with the ultrasonic device to enter the lesser sac and facilitate the ligation of the short gastric vessels. I started at a mid-point along the greater curvature and using the Thunderbeat, all short gastric vessels were divided all the way to the angle of His until the left oleg was completely dissected at its entirety. I then divided the gastro-colic ligament distally to a distance of about 3-4 cm proximal to the pylorus. There were extensive congenital adhesions between the pancreas and posterior gastric wall. Those were lysed completely with the ultrasonic device. Adhesiolysis took approximately 45 min to complete.? The stomach was then divided transversely with two Endo JOANNA-45 purple and four JOANNA-60 articulating purple loads using the [employer] stapler and loads. Every effort was made that the gastric sleeve had a tubular shape and an even caliber throughout. Once the sleeve resection was completed, the staple line of the gastric sleeve was reinforced with Hemoclips. The resected stomach was retrieved without difficulty from the Allyson port. A gastropexy was then performed in order to prevent postoperative GERD and partial gastric volvulus. Several interrupted 2.0 Surgidac sutures were placed between the sleeve's staple line and the previously divided greater omentum and gastro-colic ligament using the Endo-Stitch device. ?An upper endoscopy was performed. There was no narrowing at the GE junction. The scope was easily advanced all the way to the pylorus which was clearly visualized. There was no narrowing anywhere and the sleeve's caliber was even throughout. The sleeve's staple line was inspected and there was no evidence of ischemia, bleeding or dehiscence. At that point the gastroscope was withdrawn from the patient?s mouth while we were decompressing the bowel and the stomach from any remaining air. I looked into the lesser sac to see how the sleeve was situating and it was situating well. There was no bleeding from the staple line, spleen, or short gastric vessels. The Mediflex retractor was removed, and the undersurface of the liver was inspected and there was no bleeding. The patient was placed in supine position. I closed the fascial defect of the 12 mm port site with a figure of eight #1 Polysorb suture. Then 30cc Ropivacaine plain with 10 mg of Dexamethasone were used to infiltrate the fascial closure as well as all skin incisions. At this point, the abdomen was deflated, all ports were removed under direct vision, and no bleeding was noted from any of the port sites. The skin incisions were irrigated with saline and were closed with 4-0 absorbable monofilament sutures. Steri-Strips and OpSites were used to cover all incisions. The patient was extubated and was transferred in stable condition to the recovery room for further care. I was present and performed all gimenez parts of the procedure. Mr. Hudson was the first aid nurse. There were no residents to assist with this case. Jaguar Maria MD, PhD, FACS Surgeon: Koby Maria MD Anesthesia: GETA, local and other (TAP block ) Was an Graphics Specialist used for this Procedure?: No Graphics Specialist: Vic Hudson Estimated blood loss (mL): 10 IV fluids (mL): 3,000 Urine output (mL): 0 (No Chan to record output) Pathology: other (Stomach) Condition: stable Disposition: PACU
--- NOTE | 2023-04-22 12:53 | P.PNGS_ITS ---
Subjective Subjective Date of Service: 04/23/23 Interval history: Feels well. Mild incisional pain. She is tolerating phase 1 bariatric diet Physical Exam 2 Vital Signs: Vital Signs: Last Vital Signs Temp 97.6 F 04/22/23 10:38 Pulse 75 04/22/23 10:38 Resp 16 04/22/23 10:38 BP 144/83 H 04/22/23 10:38 Pulse Ox 98 04/22/23 10:38 O2 Del Method Room Air 04/22/23 10:38 BMI result Body Mass Index 45.0 GI: Inspection: Yes normal to inspection and Yes incision (clean, dry and intact) Palpation (GI): Soft to palpation Extrem: Right lower extremity: normal to inspection (no calf tenderness) L eft lower extremity: normal to inspection (no calf tenderness) Objective Data Active Medications Albuterol Sulfate (Albuterol Sulfate (0.083%) 2.5 Mg/3 Ml Vial.Neb) 2.5 mg INHALE ONCE PRN PRN Reason: Wheezing Fentanyl (Fentanyl Citrate/Pf 100 Mcg/2 Ml Vial) 50 mcg IVPUSH Q5M PRN; Protocol PRN Reason: Pain, Severe (Pain Scale 7-10) Fentanyl (Fentanyl Citrate/Pf 100 Mcg/2 Ml Vial) 25 mcg IVPUSH Q5M PRN; Protocol PRN Reason: Pain, Moderate(Pain Scale 4-6) Hydromorphone HCl (Hydromorphone Hcl 0.5 Mg/0.5 Ml Syringe) 0.25 mg IVPUSH Q5M PRN; Protocol PRN Reason: Pain, Severe (Pain Scale 7-10) Lactated Ringer's (Lr) 1,000 mls @ 100 mls/hr IVCONT .Q10H BRI Last Admin: 04/22/23 10:57 Dose: 100 mls/hr Documented By: NUHA Ondansetron HCl (Ondansetron Hcl 4 Mg/2 Ml Vial) 4 mg IVPUSH ONCE PRN PRN Reason: Nausea and Vomiting Oxycodone HCl (Oxycodone Hcl Immed Release 5 Mg Tablet) 5 mg PO ONCE PRN PRN Reason: Pain, Severe (Pain Scale 7-10) Labs 04/23/23 07:01 04/22/23 16:16 Labs: Laboratory Results - last 24 hr 04/22/23 11:45 Urine Test NEGATIVE Procedures Date of Service Date of Service: 04/23/23 Progress Note: A&P Assessment and plan (1) Morbid obesity: Status: Acute Assessment and Plan: s/p laparoscopic sleeve gastrectomy, lysis of adhesions and gastropexy Doing well Will check am labs and if OK the patient will be discharged home (2) GERD (gastroesophageal reflux disease): Status: Acute (3) Liver fibrosis: Status: Acute (4) S/P laparoscopic sleeve gastrectomy: Status: Acute (5) Congenital intra-abdominal adhesions: Status: Acute Time Spent With Patient Time: Total time managing care of this patient today ____ minutes. Quality Stroke Does the patient have a stroke diagnosis?: No VTE Prior VTE?: No VTE Risk Level:: Surgical - moderate VTE Device Contraindication: N/A - Device Ordered VTE Drug Contraindication: Treatment Not Indicated
--- NOTE | 2023-04-22 15:29 | PM.DS ---
DS: Providers Provider Date of Service: 04/23/23 Date of admission: 04/22/23 10:22 Primary care physician: Caryl Henriquez MD DS: Diagnosis Discharge Diagnosis (1) Morbid obesity: Status: Acute (2) GERD (gastroesophageal reflux disease): Status: Acute (3) Liver fibrosis: Status: Acute DS: Summary Hospital Course Hospital Course: ADMITTING DIAGNOSIS: morbid obesity ? DISCHARGE DIAGNOSIS: same, s/p laparoscopic sleeve gastrectomy ? PAST SURGICAL HISTORY: none ? PROCEDURE: upper endoscopy, laparoscopic sleeve gastrectomy ? DISCHARGE SUMMARY: ? History of Present Illness: ? The patient is a?33 year-old woman with a BMI of?51.8 kg/m2 and associated co-morbidities as described above. The patient had extensive work-up,lost?43.3 lbs preoperatively and was electively scheduled for laparoscopic, possible open sleeve gastrectomy and gastropexy. Risks and complications of the surgery were discussed with the patient in advance, particularly the possibility of , pulmonary embolism, anastomotic leak, bleeding, bowel injury, GERD, cardiac, renal or pulmonary complications. The patient understood all the risks and was in agreement with the surgical plan. ? Hospital Course: ? The patient underwent an uneventful laparoscopic sleeve gastrectomy with gastropexy on the day of admission. Postoperatively, the patient was transferred to the surgical floor. The patient received IV Acetaminophen and IV dilaudid for pain control. Patient was started on bariatric phase 1 diet POD #0. On postoperative day one, the patient was feeling well without nausea, vomiting, fevers, or tachycardia. The patient had some mild incisional pain and the abdomen was soft. ? On the morning of postoperative day one, the patient was continued on 1 ounce of water or ice every half hour. During the day, the patient did fairly well, having some incisional pain, but able to ambulate adequately and to tolerate liquids well. ? Since the patient is doing well, we decided that the patient was ready to be discharged. The patient was given instructions to follow-up with me next week and to call my office for any fever over 101, persistent abdominal pain, nausea, vomiting, GERD, symptoms of DVT such as calf tenderness, or leg swelling, or pulmonary embolism such as chest pain or shortness of breath. The patient was also instructed to drink 40-60 ounces of liquids per day using the 1-ounce cups. The patient had been given prescriptions for Tylenol for pain, Zofran prn for nausea, and pantoprazole and carafate previously. The patient was encouraged to ambulate and use the incentive spirometer. The patient was allowed to shower, but no baths, and encouraged to stay active at home. All of these instructions were given to the patient personally. All questions were answered and the patient understood all instructions, the instructions were also given to the patient in print. Time Attestation Discharge coordination time: Less than 30 minutes Quality: Safe Use of Opioids Does Pt have an Active Cancer Diagnosis on the Problem List?: No Quality: Stroke Does the patient have a stroke diagnosis?: No Physical Exam Vital Signs: Vital Signs: Last Vital Signs Temp 97.6 F 04/22/23 10:38 Pulse 75 04/22/23 10:38 Resp 16 04/22/23 10:38 BP 144/83 H 04/22/23 10:38 Pulse Ox 98 04/22/23 10:38 O2 Del Method Room Air 04/22/23 10:38 BMI result Body Mass Index 45.0 DS: Data Data Completed and Pending Pending studies at discharge: Pending at discharge 04/22/23 14:37 Surgical [PTH] Routine Labs on day of discharge: Laboratory Results - last 24 hr 04/22/23 11:45 Urine Test NEGATIVE Discharge Plan Discharge Anticipated Discharge Date/Time: 04/23/23 11:00 Patient Disposition: Home, Self-Care Discharge Diagnosis: s/p laparoscopic sleeve gastrectomy Referrals: Caryl Horvath MD [Primary Care Provider] - 1 Week Discharge Medications: Continued pantoprazole 40 mg tablet,delayed release (DR/EC) 40 mg PO DAILY@0630 ondansetron 4 mg tablet,disintegrating 4 mg PO Q12H PRN (Reason: nausea and vomiting) Rx Instructions: Only take one every 12 hours as needed if you have nausea Mirena 20 mcg/24 hours (7 yrs) 52 mg intrauterine device 1 device intrauterine DIRECTED bisacodyl [Dulcolax (bisacodyl)] 10 mg suppository 10 mg TN DAILY PRN (Reason: constipation) Qty: 12 0RF sucralfate 100 mg/mL suspension 10 ml PO BID Qty: 600 2RF Discontinued cholecalciferol (vitamin D3) 125 mcg (5,000 unit) capsule 125 mcg PO DAILY 90 Days Qty: 90 1RF cyanocobalamin (vitamin B-12) 500 mcg tablet 500 mcg PO DAILY 90 Days Qty: 90 0RF thiamine HCl (vitamin B1) 100 mg tablet 100 mg PO DAILY 90 Days Qty: 90 1RF vitamin A 3,000 mcg (10,000 unit) capsule 3,000 mcg PO DAILY 90 Days Qty: 90 0RF Discharge Orders: Discharge Order (Routine); Ordered 04/23/23 Ordered By: Koby Maria Activity on Discharge: No heavy lifting Stand Alone Forms: Patient Portal Discharge page Care Plan Goals: weight loss Health Concerns: morbid obesity Plan of Treatment: No tub baths, sex or returning to work until discussed at first post op appointment. No exercise, alcohol, tobacco or illegal drug use. Continue to use incentive spirometer hourly while awake. Walk in home for 5- 10 minutes every 2 hours during the first week. Follow all instructions in the bariatric handbook and call with any questions.Discharge Instructions 1. Please call your doctor or come back to the emergency room should any new symptoms arise. 2. You will receive a courtesy call from [facility] 24-48 hours after discharge. 3. Activity: abstain from alcohol, practice limited stair climbing, no bending, no driving, no exercise, no illicit substances, no lifting, no sex, no tub bath, no work. 4. Diet: continue as discussed with Dr. Maria. 5. Dressing Change/Wound Care: Your incision is covered by clear bandages and guaze underneath. If the area is tender, you may apply an ice pack for short intervals (no more than 20 minutes on, followed by at least 20 minutes off). Do not apply heat. Do not use creams, lotions, or topical antibiotics unless instructed to do so by your surgeon. These can cause infection or allergic reaction. 6. Call your doctor if: - Your temperature exceeds 101.5 F - You experience excessive pain or swelling - You have an unexpected reaction to medication - You have excessive bleeding - You experience continued vomiting/nausea - Your incision begins to separate - Your incision shows signs of infection such as increased redness, swelling, excessive pain, heat, or drainage (light blood or clear fluid is normal) 7. General instructions: No lifting greater than 5 lbs for 1 week and not more than 20lbs the next 3?weeks. No driving until seen at the office in 5-7 days after surgery. If you do not move your bowels in the next 2 days, please tell?Dr. Maria. Please walk around your home every hour or two to prevent blood clots from forming in your legs. You do not need to wake from sleeping to walk. Please sleep in a bed or couch to prevent kinking at the hips and knees. Please take your incentive spirometer (your lung trumpet teacher) home with you and use it for the next few days to prevent pneumonia. You may shower, no hot tubs, baths or swimming pools.?Please follow the post op diet instructions you are?given by Dr Maria? and text me daily at 5-6pm for an update.?If you have any issues or concerns or questions please communicate this to him via text.? The Celebrate shakes have all of the bariatric vitamins you need if you consume these shakes. If you are drinking other protein shakes, you will need to purchase the Celebrate multivitamins and calcium that are available in the hospital gift shop on the first floor of the [facility].??Do not take anything without first discussing with Dr Maria. Please make sure you are consuming at least 40 ounces of fluids per day starting the?day AFTER your discharge from the hospital. Always drink 1-2 ml per minute using the 5ml?syringe. If you drink faster you may experience?bloating,?gas pain, burping, nausea or heartburn. In that case please slow down your pace and use the syringe to?understand better the?proper?pace and volume of drinking. Do not hesitate to contact the office with any questions at . The patient's medical history has been reviewed and they are considered low risk for post op DVT and therefore DVT prophylaxis is not considered necessary. Travel after surgery was reviewed. The patient has not disclosed any travel plans during the first 30 days after surgery and they have been advised that within the first 30 days after surgery any bus, plane, train or car travel over 2 hours in duration is contraindicated due to the possibility of developing blood clots from immobility. Any travel, needs to include periods of ambulation of 10 minutes in duration every 2 hours.? The patient was instructed to discuss any plans for travel during this period with their bariatric surgeon. Assessment: stable s/p laparoscopic sleeve gastrectomy Discharge Date/Time: 04/23/23 09:01
[2023-04-22 16:24] LABS: Hematocrit 38.6 % (37.0-47.0); Hemoglobin 12.5 g/dl (12.0-16.0)
[2023-04-22 16:45] LABS: Anion Gap 19 (12-20); Blood Urea Nitrogen 8 mg/dL (9-16); Carbon Dioxide 19 mmol/L (22-29); Chloride 103 mmol/L (96-108); Creatinine Clr Calc Pharmacy 137.7; Estimated Glomerular Filt Rate > 60; Glucose Random 133 mg/dL (60-115); Potassium 3.6 mmol/L (3.3-5.1); Sodium 137 mmol/L (135-145)
[2023-04-22] MEDS: 0.9 % Sodium Chloride Flush 3 ML SYRINGE IVFLUSH ×2 (17:58→20:04)
[2023-04-22] MEDS: Metoclopramide HCl 10 MG/2 ML VIAL IVPUSH (17:58)
[2023-04-22] MEDS: ceFAZolin Sodium/Dextrose,Iso 2 GM/50 ML PIGGYBACK IV (18:35)
[2023-04-22] MEDS: Acetaminophen 1,000 MG/100 ML PIGGYBACK 16.7 MG IV (20:03)
[2023-04-22] MEDS: Famotidine/PF 20 MG/2 ML VIAL IVPUSH (20:04)
[2023-04-23] MEDS: Acetaminophen 1,000 MG/100 ML PIGGYBACK 16.7 MG IV (02:01)
[2023-04-23] MEDS: Lactated Ringers 1,000 ML 100 ML IVCONT (03:33)
[2023-04-23 03:44] VITALS: BP 143/68; PULSE 50; RESP 18; TEMP 36.3; O2SAT 95
[2023-04-23 07:38] LABS: MANUAL DIFF FLAG NO
[2023-04-23 07:48] LABS: Hematocrit 42.4 % (37.0-47.0); Hemoglobin 13.6 g/dl (12.0-16.0); Imm Gran Abs Auto 0.06 X10*3/uL (0.00-0.03); Imm Gran Pct Auto 0.6 % (0.0-0.4); Lymphocytes Absolute Auto 0.9 X10*3/uL (1.2-4.9); Lymphocytes Percent Auto 8.5 % (20-40); Mean Corpuscular HGB Conc 32.1 g/dl (31.0-35.0); Mean Corpuscular Hemoglobin 26.3 pg (27.0-33.0); Monocytes Absolute Auto 0.1 X10*3/uL (0.1-1.2); Monocytes Percent Auto 1.3 % (2-11); Neutrophils Absolute Auto 9.5 x10*3/uL (2.0-8.3); Neutrophils Percent Auto 89.6 % (45-73); Platelet Count 420 X10*3/uL (160-400); Red Blood Count 5.17 X10*6/uL (4.20-5.50); Red Cell Distribution Width 15.4 % (11.0-16.0); White Blood Count 10.6 X10*3/uL (4.8-10.8)
[2023-04-23 07:50] VITALS: BP 138/69; PULSE 55; RESP 18; TEMP 36.1; O2SAT 98
[2023-04-23] MEDS: Famotidine/PF 20 MG/2 ML VIAL IVPUSH (08:02)
[2023-04-23 08:12] LABS: Anion Gap 15 (12-20); Blood Urea Nitrogen 6 mg/dL (9-16); Carbon Dioxide 20 mmol/L (22-29); Chloride 105 mmol/L (96-108); Creatinine Clr Calc Pharmacy 142.7; Estimated Glomerular Filt Rate > 60; Glucose Random 121 mg/dL (60-115); Potassium 4.2 mmol/L (3.3-5.1); Sodium 136 mmol/L (135-145)
--- NOTE | 2023-04-23 08:58 | HO.POSTANES ---
Post Anesthesia Evaluation Post Anesthesia Evaluation Date of Service: 04/23/23 Vital Signs: Vital Signs Temp Pulse Resp BP Pulse Ox O2 Del Method 04/23/23 07:50 96.9 F 55 18 138/69 98 Room Air 04/23/23 03:44 97.3 F 50 18 143/68 H 95 Room Air 04/22/23 23:29 98.4 F 70 18 140/71 H 98 Room Air Anesthesia: General Endotracheal-GETA Mental Status: Awake Pain Control: Satisfactory Nausea/Vomiting: None Hydration: Adequate Anesthesia-Related Issues: No Anes. Related Issues
== END 2023-04-23 09:01 | disposition home or self-care (01) | DRG 403 ==
LOC: HO.SSSA 15:32 → HO.S3 16:13
PROVIDERS: Nurse Practitioner; Physician Assistant Surgical; Admitting Provider Surgery; PCP Internal Medicine; Visit Provider Surgery
PROC: 0DB64Z3 Excision of Stomach, Percutaneous Endoscopic Approach, Vertical (ICD-10-PCS; CPT 43845; principal; 2023-04-22 12:50)
DX: E66.01 Morbid (severe) obesity due to excess calories (principal); K74.00 Hepatic fibrosis, unspecified; Q43.3 Congenital malformations of intestinal fixation; K21.9 Gastro-esophageal reflux disease without esophagitis; Z68.41 Body mass index [BMI] 40.0-44.9, adult; Z79.899 Other long term (current) drug therapy
CPT/HCPCS: 36415; 80048; 80053; 80061; 81025; 83036; 83525; 84443; 85014; 85018; 85025; 85610; 85730; 86140; 86850; 86900; 86901; 88307; 88342; 99024; A4649; C9088; C9145; J0131; J0690; J1100; J1170; J2250; J2405; J2704; J2765; J2795; J3010; J7120

== ENCOUNTER → 2023-04-22 10:22 | Outpatient (BNV) | payer OTHER, SELFPAY | PROVIDERS: Admitting Provider Surgery; PCP Internal Medicine; Visit Provider Surgery | DX: E66.01 Morbid (severe) obesity due to excess calories (principal); Z68.41 Body mass index [BMI] 40.0-44.9, adult; K66.0 Peritoneal adhesions (postprocedural) (postinfection) | CPT/HCPCS: 43659; 43775; 99024 ==

== ENCOUNTER 2023-04-29 10:13 | Outpatient (AMB) | payer OTHER, SELFPAY ==
--- NOTE | 2023-04-29 10:54 | A.OFFVIS_ITS ---
Intake VS Expanded 04/29/23 11:13 BP 127/71 Blood Pressure Location Rt brachial Blood Pressure Position Sitting Pulse 77 Pulse Source Pulse Oximeter Temp 98.7 F Temperature Source Temporal Artery Scan Pulse Oximetry 99 Oxygen Delivery Method Room Air Height 5 ft 7 in Weight 269 lb 9.6 oz BMI 42.2 Body Fat % 48.9 Body Fat Mass 131.8 Fat Free Mass 137.6 Visceral Fat Rating 13.0 Body Water % 36.6 Body Water Mass 98.6 Muscle Mass/Score 130.8 Basal Metabolic Rate/Score 1,987 Intake Visit Reasons: (OV) PO LSG 04/22/23 Allergies No Known Allergies [No Known Allergies*] Allergy (Verified 04/29/23 11:02) HPI HPI Comments History of Present Illness Details 33-year-old female returns to the office today in follow-up. She is 7 days post sleeve gastrectomy performed on 04/22/2023. Patient could not tolerate the celebrate 4 in 1 protein shakes as she did not like them and she is doing 3 Orgain shakes with 1 scoop each. No complaints of pain. Positive bowel movement. [facility] Medical History (Updated 04/22/23 @ 20:04 by Koby Maria MD) GERD (gastroesophageal reflux disease) No pertinent past medical history Surgical History (Updated 04/22/23 @ 15:30 by GIGI Cortez) No history of previous surgery Family History Maternal Grandmother HTN (hypertension) Paternal Grandmother HTN (hypertension) Diabetes mellitus Paternal Grandfather HTN (hypertension) Diabetes mellitus Alzheimer disease Maternal Aunt Breast cancer Paternal Aunt Breast cancer Social History Household Members: Family Housing: House Are you a primary critical care clinical nurse specialist to a significant other at home: No Do you presently have visiting nurse or other home services: No Alcohol intake: current Alcohol intake frequency: does not drink Alcohol type: wine Patient Tobacco Use Status: Never used Tobacco e-Cigarette/Vaping Use: Never Used Second Hand Smoke Exposure: No service: No Current occupational status: employed Current occupational exposures/hazards: No Gender identity: Female Cognitive needs: No Hearing needs: No Vision needs: Yes Female Reproductive History Menstrual Age of Menarche: 10 Physical Exam GI Inspection: Yes incision (C/D/I) Assessment & Plan Assessment & Plan (1) S/P laparoscopic sleeve gastrectomy: Code(s): Z98.84 - Bariatric surgery status Plan: POD 7 s/p LSG on 04/22/[address] Maria Weight loss prior to surgery was 43.3 pounds or 13 % TBWL. Original weight on 11/26/2022 was 330.6 pounds and op weight was 287.3 pounds. Be sure to text Dr Maria exactly 1 week after surgery your weight from your home scale so he can adjust your meal plan. Continue meal plan until f/u taryn Ho in 2 weeks May shower, no submersion in bath for another week Continue abdominal binder with activity and exercise for the next 2 weeks. Exercise prior to surgery was treadmill, elliptical, stationary bike No abdominal exercises for 6 weeks post operatively Will be emailed link to post op video for review Reminded of the pace of drinking, 2 mL per minute, 1 oz/15 min. Coding Level of Care Code Global (57290) Diagnoses S/P laparoscopic sleeve gastrectomy Z98.84
[2023-04-29 11:13] VITALS: BP 127/71; PULSE 77; TEMP 37.1; O2SAT 99; BMI 42.2
== END 2023-04-29 12:54 | disposition home or self-care (01) ==
PROVIDERS: PCP Internal Medicine; Visit Provider Physician Assistant Surgical
DX: Z98.84 Bariatric surgery status (principal)
CPT/HCPCS: 99024

== ENCOUNTER → 2023-04-29 10:13 | Outpatient (BNVA) | payer OTHER, SELFPAY | PROVIDERS: PCP Internal Medicine; Visit Provider Physician Assistant Surgical ==

== ENCOUNTER 2023-05-22 15:20 | Outpatient (AMB) | payer OTHER, SELFPAY ==
--- NOTE | 2023-05-22 13:11 | MHC.OFFVISWM ---
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 Presents for 1 month post op visit. Weight today is 260.6 pounds, with a BMI of 40.8. There has been a 70 pound weight loss,(initial weight 330.6 pounds) since starting the program on 11/26/2022 reflecting a 21.1 % total body weight loss and a weight loss of 26.7 pounds since surgery (operative weight 287.3 pounds) reflecting a 9.2 % TBWL since surgery. No complaints of nausea, emesis, abdominal pain or reflux. Reports infrequent but normal bowel movements every 1-2 days and uses stool softeners regularly. Unhappy with Orgain Present meal plan includes: home schedule celebrate 4 in 1 1 scoop in 8 oz almond milk 8-10, 11-1, 2 scoops Orgain in 8 oz almond milk 2-4pm fit crunch bar 5-8 pm Drinking 40 oz water excluding shakes. work schedule () 2 scoops celebrate 4 in 1 w 8 oz almond milk 11p-1 a another shake 3-5 a Orgain shake 2 scoops 7-9 a 1/2 zp bar 10-11 a? Exercise routine includes: Covid last week but did 4 days on pelaton bike, 200-250 calories [facility] Medical History (Updated 05/01/23 @ 00:03 by Background Daemon) Microscopic hematuria Left leg pain Physical exam PID (acute pelvic inflammatory disease) Counseling for control regarding intrauterine device (IUD) Potential exposure to STD Well woman exam with routine gynecological exam GERD (gastroesophageal reflux disease) No pertinent past medical history Surgical History (Updated 05/01/23 @ 00:03 by Background Daemon) No history of previous surgery Family History Maternal Grandmother HTN (hypertension) Paternal Grandmother HTN (hypertension) Diabetes mellitus Paternal Grandfather HTN (hypertension) Diabetes mellitus Alzheimer disease Maternal Aunt Breast cancer Paternal Aunt Breast cancer Social History Household Members: Family Housing: House Are you a primary career development director to a significant other at home: No Do you presently have visiting nurse or other home services: No Alcohol intake: current Alcohol intake frequency: does not drink Alcohol type: wine Patient Tobacco Use Status: Never used Tobacco e-Cigarette/Vaping Use: Never Used Second Hand Smoke Exposure: No service: No Current occupational status: employed Current occupational exposures/hazards: No Gender identity: Female Cognitive needs: No Hearing needs: No Vision needs: Yes Female Reproductive History Menstrual Age of Menarche: 10 Assessment & Plan Assessment & Plan (1) S/P laparoscopic sleeve gastrectomy: Code(s): Z98.84 - Bariatric surgery status Plan: change meal plan slightly to account for distaste for Orgain at this time: home schedule celebrate 4 in 1 1 scoop in 8 oz almond milk 8-10, 11-1, 2 scoops celebrate 4 in 1 in 8 oz almond milk 2-4pm fit crunch bar 5-8 pm Drinking 40 oz water excluding shakes. work schedule (11p-7a) 2 scoops celebrate 4 in 1 w 8 oz almond milk 11p-1 a another shake 3-5 a celebrate 4 in 1 2 scoops 7-9 a fit crunch bar 10-11 a? rtc 1 month Telehealth Telehealth Location of provider rendering services: practice address Location of patient: address on file Patient Identification confirmed using: Name, : Yes Telehealth method: voice only Patient verbally consented to treatment: Yes Patient verbally consented to billing insurance company: Yes Patient informed of any privacy concerns related to visit: Yes Minutes spent on Phone/Video with Pt.: 15 Coding Level of Care Code Global (23753) Diagnoses S/P laparoscopic sleeve gastrectomy Z98.84
[2023-05-22 13:12] VITALS: BMI 40.8
== END 2023-05-22 15:30 | disposition home or self-care (01) ==
LOC: HO.HBS 15:20
PROVIDERS: PCP Internal Medicine; Visit Provider Physician Assistant Surgical
DX: Z98.84 Bariatric surgery status (principal)
CPT/HCPCS: 99024

== ENCOUNTER → 2023-05-22 15:20 | Outpatient (BNVA) | payer OTHER, SELFPAY | PROVIDERS: PCP Internal Medicine; Visit Provider Physician Assistant Surgical ==

== ENCOUNTER 2023-06-17 09:02 | Outpatient (AMB) | payer OTHER, SELFPAY ==
--- NOTE | 2023-06-17 08:31 | A.OFFVIS_ITS ---
Intake VS Expanded 06/17/23 08:32 Height 5 ft 7 in Weight 249 lb 9.6 oz BMI 39.1 Body Fat % 50.1 Body Fat Mass 125 Visceral Fat Rating 20 Body Water % 34.2 Body Water Mass 85.4 Basal Metabolic Rate/Score 1,593 Intake Visit Reasons: (tV) PO LSG 04/22/23 Key Account Coordinator Required: No Allergies No Known Allergies [No Known Allergies*] Allergy (Verified 04/29/23 11:02) Medication List - Last Reconciled 06/17/23 by GIGI Cortez bisacodyl (Dulcolax (bisacodyl)) 10 mg [place] DAILY PRN levonorgestrel (Mirena) 1 device intrauterine DIRECTED pantoprazole 40 mg PO DAILY@0630 sucralfate 10 mL PO BID HPI HPI Comments History of Present Illness Details This?a?33?yo female who is s/p LSG without hiatal hernia repair on?04/22/2023. Presents for 2 month post op visit. Weight today is 249.6 pounds, with a BMI of 39.1. There has been a 81 pound weight loss,(initial weight 330.6 pounds) since starting the program on 11/26/2022 reflecting a 24.5 % total body weight loss and a weight loss of 37.7 pounds since surgery (operative weight 287.3 pounds) reflecting a 13.1 % TBWL since surgery. No complaints of nausea, emesis, abdominal pain or reflux. Reports infrequent but normal bowel movements every 1-2 days and uses stool softeners regularly. She is feeling great and has noticed a huge difference in her energy level. She is very happy with how things are going and does not want to change her meal plan Present meal plan includes: home schedule celebrate 4 in 1 1 scoop in 8 oz almond milk 8-10, 11-1, 2 scoops celebrate 4 in 1 in 8 oz almond milk 2-4pm fit crunch bar 5-8 pm Drinking 40 oz water excluding shakes. work schedule () 2 scoops celebrate 4 in 1 w 8 oz almond milk 11p-1 a another shake 3-5 a celebrate 4 in 1 1 scoops 7-9 a fit crunch bar 10-11 a? Exercise routine includes: 5 x per week at gym, 30-45 minutes tread mill or elliptical, 300-400 calories. 2 days a week pelaton bike, 300 calories PFSH Medical History Microscopic hematuria Left leg pain Physical exam PID (acute pelvic inflammatory disease) Counseling for control regarding intrauterine device (IUD) Potential exposure to STD Well woman exam with routine gynecological exam GERD (gastroesophageal reflux disease) No pertinent past medical history Surgical History No history of previous surgery Family History Maternal Grandmother HTN (hypertension) Paternal Grandmother HTN (hypertension) Diabetes mellitus Paternal Grandfather HTN (hypertension) Diabetes mellitus Alzheimer disease Maternal Aunt Breast cancer Paternal Aunt Breast cancer Social History Household Members: Family Housing: House Are you a primary manager critical care unit to a significant other at home: No Do you presently have visiting nurse or other home services: No Alcohol intake: current Alcohol intake frequency: does not drink Alcohol type: wine Patient Tobacco Use Status: Never used Tobacco e-Cigarette/Vaping Use: Never Used Second Hand Smoke Exposure: No service: No Current occupational status: employed Current occupational exposures/hazards: No Gender identity: Female Cognitive needs: No Hearing needs: No Vision needs: Yes Female Reproductive History Menstrual Age of Menarche: 10 Assessment & Plan Assessment & Plan (1) Obesity (BMI 30-39.9): Code(s): E66.9 - Obesity, unspecified Plan: Patient is doing very well and making excellent progress. She does not wish to change her meal plan at this time. She will text with any questions or concerns. We will arrange for follow-up appointment at her 3 month postop visit. Telehealth Telehealth Location of provider rendering services: practice address Location of patient: other Patient Identification confirmed using: Name, : Yes Telehealth method: voice only Patient verbally consented to treatment: Yes Patient verbally consented to billing insurance company: Yes Patient informed of any privacy concerns related to visit: Yes Minutes spent on Phone/Video with Pt.: 12 Coding Level of Care Code Global (16042) Diagnoses Obesity (BMI 30-39.9) E66.9
[2023-06-17 08:32] VITALS: BMI 39.1
== END 2023-06-17 09:41 | disposition home or self-care (01) ==
LOC: HO.HBS 09:02
PROVIDERS: PCP Internal Medicine; Visit Provider Physician Assistant Surgical
DX: E66.9 Obesity, unspecified (principal)
CPT/HCPCS: 99024

== ENCOUNTER → 2023-06-17 09:02 | Outpatient (BNVA) | payer OTHER, SELFPAY | PROVIDERS: PCP Internal Medicine; Visit Provider Physician Assistant Surgical ==

== ENCOUNTER 2023-07-29 11:56 | Outpatient (AMB) | payer OTHER, SELFPAY ==
--- NOTE | 2023-07-29 08:22 | A.OFFVIS_ITS ---
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 Presents for 3 month post op visit. Weight today is 239.4 pounds, with a BMI of 37.5. There has been a 91.2 pound weight loss,(initial weight 330.6 pounds) since starting the program on 11/26/2022 reflecting a 27.5 % total body weight loss and a weight loss of 47.9 pounds since surgery (operative weight 287.3 pounds) reflecting a 16.6 % TBWL since surgery. No complaints of nausea, emesis, abdominal pain or reflux. Reports infrequent but normal bowel movements every 1-2 days and uses stool softeners regularly. She is feeling great and has noticed a huge difference in her energy level. No complaints. She is very happy with how things are going and does not want to change her meal plan Present meal plan includes: home schedule celebrate 4 in 1 2 scoops in 8 oz almond milk 8-10, 1 scoop 11-1, 1 scoops celebrate 4 in 1 in 8 oz almond milk 2-4pm fit crunch bar 5-8 pm Drinking 40 oz water excluding shakes. work schedule () 2 scoops celebrate 4 in 1 w 8 oz almond milk 11p-1 another shake 3-5 a, 1 scoop celebrate 4 in 1 1 scoops 7-9 a fit crunch bar 10-11 a? Exercise routine includes: 4 x per week at gym, 30-45 minutes treadmill or elliptical, 300-400 calories. 2 days a week pelaton bike, 300 calories PFSH Medical History Microscopic hematuria Left leg pain Physical exam PID (acute pelvic inflammatory disease) Counseling for control regarding intrauterine device (IUD) Potential exposure to STD Well woman exam with routine gynecological exam GERD (gastroesophageal reflux disease) No pertinent past medical history Surgical History No history of previous surgery Family History Maternal Grandmother HTN (hypertension) Paternal Grandmother HTN (hypertension) Diabetes mellitus Paternal Grandfather HTN (hypertension) Diabetes mellitus Alzheimer disease Maternal Aunt Breast cancer Paternal Aunt Breast cancer Social History Household Members: Family Housing: House Are you a primary adult care manager to a significant other at home: No Do you presently have visiting nurse or other home services: No Alcohol intake: current Alcohol intake frequency: does not drink Alcohol type: wine Patient Tobacco Use Status: Never used Tobacco e-Cigarette/Vaping Use: Never Used Second Hand Smoke Exposure: No service: No Current occupational status: employed Current occupational exposures/hazards: No Gender identity: Female Cognitive needs: No Hearing needs: No Vision needs: Yes Female Reproductive History Menstrual Age of Menarche: 10 Telehealth Telehealth Telehealth Platform: Telephone Location of provider rendering services: practice address Location of patient: address on file Patient Identification confirmed using: Name, : Yes Telehealth method: voice only Patient verbally consented to treatment: Yes Patient verbally consented to billing insurance company: Yes Patient informed of any privacy concerns related to visit: Yes Minutes spent on Phone/Video with Pt.: 10 Assessment & Plan Assessment & Plan (1) S/P laparoscopic sleeve gastrectomy: Code(s): Z98.84 - Bariatric surgery status Category: Surgical Plan: Overall, the patient is doing well and is satisfied with her current plans and progress. She wishes to continue the current meal plan. She was encouraged to resume the Peloton bike as she has not been doing that for the last 2 weeks.
[2023-07-29 08:23] VITALS: BMI 37.5
== END 2023-07-29 11:57 | disposition home or self-care (01) ==
LOC: HO.HBS 11:56
PROVIDERS: PCP Internal Medicine; Visit Provider Physician Assistant Surgical
DX: E66.9 Obesity, unspecified (principal); Z68.37 Body mass index [BMI] 37.0-37.9, adult; Z90.3 Acquired absence of stomach [part of]; Z98.84 Bariatric surgery status
CPT/HCPCS: 99441

== ENCOUNTER → 2023-07-29 11:56 | Outpatient (BNVA) | payer OTHER, SELFPAY | PROVIDERS: PCP Internal Medicine; Visit Provider Physician Assistant Surgical ==

== ENCOUNTER 2023-09-12 10:36 | Outpatient (REF) | payer OTHER, SELFPAY ==
--- NOTE | ~2023-09-12 | US_ITS ---
EXAMINATION: US PELVIS CLINICAL INFORMATION: Endometriosis of ovary. COMPARISON: MR pelvis 03/04/2023. TECHNIQUE: Ultrasound of the pelvis is performed using both transabdominal and transvaginal transducers along with Doppler. Transvaginal imaging is performed due to inadequate visualization transabdominally. FINDINGS: Uterus: The uterus is anteverted and measures 8.5 x 4.8 x 5.6 cm. The double wall endometrial thickness is 7 mm. The uterus is smooth in contour and has normal myometrial echogenicity. No visible fibroid. Adnexa: Both ovaries are visualized. There is normal color flow to the adnexa. There is no ovarian torsion. There is no pelvic ascites or fluid collection. Right ovary measures 4.7 x 2.6 x 2.8 cm for a volume of 17.9 mL which includes a simple cyst measuring 1.2 cm as well as a hemorrhagic or corpus luteal cyst measuring 1.8 cm. The previously seen 3.9 x 2.6 x 2.3 cm area of T1 bright signal in the right ovary is not seen or is considerably smaller. Left ovary measures 3.9 x 1.5 x 2.6 cm for a volume of 8.0 mL with multiple ovarian cysts along with a paraovarian cyst measuring 3.3 x 1.8 x 3.6 cm and it is possible that this paraovarian cyst could even be a hydrosalpinx. US/US pelvic and transvaginal IMPRESSION: 1. Bilateral ovarian cysts. 2. The previously seen 3.9 cm area of T1 bright signal in the right ovary is not seen or is considerably smaller. 3. Left paraovarian cyst versus hydrosalpinx.
== END 2023-09-12 10:37 | disposition home or self-care (01) ==
LOC: HO.US 10:36
PROVIDERS: PCP Internal Medicine; Visit Provider Advanced Practice Midwife
DX: N80.129 Deep endometriosis of ovary, unspecified ovary (principal)
CPT/HCPCS: 76830; 76856

== ENCOUNTER 2023-12-26 15:00 | Outpatient (AMB) | payer OTHER, SELFPAY ==
[2023-12-26 14:56] VITALS: BMI 34.5
--- NOTE | 2023-12-26 14:56 | MHC.OFFVISWM ---
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 Presents for 8 month post op visit. Weight today is 220.2 pounds, with a BMI of 34.5. There has been a 110.4 pound weight loss,(initial weight 330.6 pounds) since starting the program on 11/26/2022 reflecting a 33.3 % total body weight loss and a weight loss of 67.1 pounds since surgery (operative weight 287.3 pounds) reflecting a 23.3 % TBWL since surgery. No complaints of nausea, emesis, abdominal pain or reflux. Reports infrequent but normal bowel movements every 1-2 days and uses stool softeners regularly. She has not been seen in the office since July. Followed up was compromised as she was taking care of her parents medical issues. She is feeling great and has noticed a huge difference in her energy level. No complaints. She is very happy with how things are going and does not want to change her meal plan Present meal plan includes: home schedule celebrate 4 in 1 2 scoops in 8 oz almond milk 8-10, 1 scoop 11-1, 1 scoops celebrate 4 in 1 in 8 oz almond milk 2-4pm fit crunch bar 5-8 pm Drinking 64 oz water excluding shakes. Exercise routine includes: walking 30-45 min 2-3 x per week, not tracking calories [facility] Medical History Microscopic hematuria Left leg pain Physical exam PID (acute pelvic inflammatory disease) Counseling for control regarding intrauterine device (IUD) Potential exposure to STD Well woman exam with routine gynecological exam GERD (gastroesophageal reflux disease) No pertinent past medical history Surgical History No history of previous surgery Family History Maternal Grandmother HTN (hypertension) Paternal Grandmother HTN (hypertension) Diabetes mellitus Paternal Grandfather HTN (hypertension) Diabetes mellitus Alzheimer disease Maternal Aunt Breast cancer Paternal Aunt Breast cancer Social History Household Members: Family Housing: House Are you a primary health care facility administrator to a significant other at home: No Do you presently have visiting nurse or other home services: No Alcohol intake: current Alcohol intake frequency: does not drink Alcohol type: wine Patient Tobacco Use Status: Never used Tobacco e-Cigarette/Vaping Use: Never Used Second Hand Smoke Exposure: No service: No Current occupational status: employed Current occupational exposures/hazards: No Gender identity: Female Cognitive needs: No Hearing needs: No Vision needs: Yes Female Reproductive History Menstrual Age of Menarche: 10 Telehealth Telehealth Telehealth Platform: Telephone Location of provider rendering services: practice address Location of patient: address on file Patient Identification confirmed using: Name, : Yes Telehealth method: voice only Patient verbally consented to treatment: Yes Patient verbally consented to billing insurance company: Yes Patient informed of any privacy concerns related to visit: Yes Minutes spent on Phone/Video with Pt.: 15 Assessment & Plan Assessment & Plan (1) Obesity (BMI 30-39.9): Code(s): E66.9 - Obesity, unspecified Category: Medical Plan: Lost to follow up due to having to care for her parents. check 6 month labs Orgain 2 scoops 8-10 am Orgain 1 scoop 11-1 am Fit crunch bar 2-4 pm meal 6 pm 4 forks protein (incr to 6) 4 forks veg Resume Peloton bike with a goal of 300 calories per day. Return to clinic in 1 month Orders: Orders Insulin Today E66.9 - Obesity, unspecified, K74.00 - Hepatic fibrosis, unspecified Hemoglobin A1c Today E66.9 - Obesity, unspecified, K74.00 - Hepatic fibrosis, unspecified Complete Blood Count Auto Diff Today E66.9 - Obesity, unspecified, K74.00 - Hepatic fibrosis, unspecified Vitamin B12 and Folate Today E66.9 - Obesity, unspecified, K74.00 - Hepatic fibrosis, unspecified C Reactive Protein Today E66.9 - Obesity, unspecified, K74.00 - Hepatic fibrosis, unspecified Vitamin A Today E66.9 - Obesity, unspecified, K74.00 - Hepatic fibrosis, unspecified Vitamin D 25-OH Total Today E66.9 - Obesity, unspecified, K74.00 - Hepatic fibrosis, unspecified Lipid Panel Today E66.9 - Obesity, unspecified, K74.00 - Hepatic fibrosis, unspecified IRON PROFILE Today E66.9 - Obesity, unspecified, K74.00 - Hepatic fibrosis, unspecified Zinc Today E66.9 - Obesity, unspecified, K74.00 - Hepatic fibrosis, unspecified Vitamin B1 Today E66.9 - Obesity, unspecified, K74.00 - Hepatic fibrosis, unspecified TSH reflex Free T4 Today E66.9 - Obesity, unspecified, K74.00 - Hepatic fibrosis, unspecified Ferritin Today E66.9 - Obesity, unspecified, K74.00 - Hepatic fibrosis, unspecified Basic Metabolic Panel Today E66.9 - Obesity, unspecified, K74.00 - Hepatic fibrosis, unspecified
== END 2023-12-26 15:35 | disposition home or self-care (01) ==
LOC: HO.HBS 15:17
PROVIDERS: PCP Internal Medicine; Visit Provider Physician Assistant Surgical
DX: E66.9 Obesity, unspecified (principal)
CPT/HCPCS: 99214

== ENCOUNTER → 2023-12-26 15:00 | Outpatient (BNVA) | payer OTHER, SELFPAY | PROVIDERS: PCP Internal Medicine; Visit Provider Physician Assistant Surgical | DX: E66.9 Obesity, unspecified (principal); K74.00 Hepatic fibrosis, unspecified ==

== ENCOUNTER 2024-02-20 06:04 | Outpatient (REF) | payer OTHER, SELFPAY ==
[2024-02-20 07:32] LABS: Appearance Urine Turbid; Color Urine Yellow; Glucose Urine UA Negative (Negative); Leukocyte Esterase Urine Large (3+) (Negative); Nitrite Urine Negative (Negative); PH 5.5 (5.0-9.0); Specific Gravity - Urine >= 1.030 (1.005-1.025); UMIC TRIGGER UACC YES; Urine Blood Small (1+) (Negative); Urine Ketones Negative (Negative); Urine Protein 30 (1+) mg/dL (Neg-Trace)
[2024-02-20 07:49] LABS: Bacteria Urine 4+ (None Seen); Hyaline Casts Urine 0-2 /LPF (0-2); UACC Culture Trigger YES; WBC Urine >50 /HPF (0-5)
== END 2024-02-20 06:05 | disposition home or self-care (01) ==
LOC: HO.LAB 06:04
PROVIDERS: PCP Internal Medicine; Visit Provider Internal Medicine
DX: R30.0 Dysuria (principal)
CPT/HCPCS: 81001; 87086; 87088; 87186

== ENCOUNTER 2024-04-21 06:09 | Outpatient (REF) | payer OTHER, SELFPAY ==
[2024-04-21 06:30] LABS: MANUAL DIFF FLAG NO
[2024-04-21 07:00] LABS: Basophils Absolute Auto 0.1 X10*3/uL (0.0-0.2); Basophils Percent Auto 0.6 % (0-2); Eosinophils Absolute Auto 0.1 X10*3/uL (0.0-0.4); Eosinophils Percent Auto 1.2 % (0-4); Hematocrit 40.2 % (37.0-47.0); Hemoglobin 13.5 g/dl (12.0-16.0); Imm Gran Abs Auto 0.02 X10*3/uL (0.00-0.03); Imm Gran Pct Auto 0.2 % (0.0-0.4); Lymphocytes Absolute Auto 2.9 X10*3/uL (1.2-4.9); Lymphocytes Percent Auto 27.1 % (20-40); Mean Corpuscular HGB Conc 33.6 g/dl (31.0-35.0); Mean Corpuscular Hemoglobin 28.8 pg (27.0-33.0); Mean Corpuscular Volume 85.7 fL (80.0-98.0); Mean Platelet Volume 9.7 fL (9.4-12.3); Monocytes Absolute Auto 0.6 X10*3/uL (0.1-1.2); Monocytes Percent Auto 5.6 % (2-11); Neutrophils Percent Auto 65.3 % (45-73); Platelet Count 342 X10*3/uL (160-400); Red Blood Count 4.69 X10*6/uL (4.20-5.50); Red Cell Distribution Width 14.1 % (11.0-16.0); White Blood Count 10.7 X10*3/uL (4.8-10.8)
[2024-04-21 07:12] LABS: Estimated Average Glucose 100 mg/dL; Hemoglobin A1C 110.6022 umol/L; Hemoglobin A1c % 5.1 % (<6.0)
[2024-04-21 07:18] LABS: Anion Gap 11 (12-20); Blood Urea Nitrogen 16 mg/dL (9-16); C Reactive Protein 1.41 mg/dL (< or = 0.50); Calcium 9.6 mg/dL (8.4-10.2); Carbon Dioxide 27 mmol/L (22-29); Chloride 106 mmol/L (96-108); Cholesterol 168 mg/dL (<200); Estimated Glomerular Filt Rate > 60; Glucose Random 83 mg/dL (60-115); HDL Cholesterol 52 mg/dL (>40); Iron 49 mcg/dL (30-160); LDL Cholesterol Calculated 106 mg/dL (<100); Percent Iron Saturation 17 % (15-50); Potassium 4.2 mmol/L (3.3-5.1); Sodium 140 mmol/L (135-145); Total Iron Binding Capacity 287 mcg/dL (228-428); Triglycerides 52 mg/dL (<150); Unsaturated Iron Binding 238 ug/dL
[2024-04-21 07:38] LABS: Ferritin 63 ng/mL (10-122); TSH reflex Free T4 0.61 uIU/mL (0.32-4.0); Vitamin D 25-OH Total 28.6 ng/mL (>30)
[2024-04-21 07:49] LABS: Insulin 8 uU/mL (2-29)
[2024-04-21 07:53] LABS: Folate 9.5 ng/mL (> or = 4.0); Vitamin B12 464 pg/mL (200-900)
[2024-04-24 16:08] LABS: Zinc 73 mcg/dL (60-130)
[2024-04-26 06:38] LABS: Vitamin B1 10 nmol/L (8-30)
[2024-04-26 19:43] LABS: Vitamin A 41 mcg/dL (38-98)
== END 2024-04-21 06:10 | disposition home or self-care (01) ==
LOC: HO.LAB 06:09
PROVIDERS: PCP Internal Medicine; Visit Provider Physician Assistant Surgical
DX: E66.9 Obesity, unspecified (principal); K74.00 Hepatic fibrosis, unspecified; Z13.1 Encounter for screening for diabetes mellitus
CPT/HCPCS: 36415; 80048; 80061; 82306; 82607; 82728; 82746; 83036; 83525; 83540; 84425; 84443; 84590; 84630; 85025; 86140

== ENCOUNTER 2024-04-22 16:04 | Outpatient (AMB) | payer OTHER, SELFPAY ==
[2024-04-22 14:24] VITALS: BMI 33.4
--- NOTE | 2024-04-22 14:24 | A.OFFVIS_ITS ---
VS Expanded 04/22/24 14:24 Height 5 ft 7 in Weight 213 lb 8 oz BMI 33.4 Body Fat % 41.4 Fat Free Mass 125.2 Visceral Fat Rating 15 Body Water % 40.2 Muscle Mass/Score 117.8 Basal Metabolic Rate/Score 1,590 Intake Visit Reasons: (tV) PO LSG 04/22/23 Allergies No Known Allergies [No Known Allergies*] Allergy (Verified 04/29/23 11:02) HPI Comments Details: This?a?34?yo female who is s/p LSG without hiatal hernia repair on?04/22/2023. Presents for 1 year post op visit. Weight today is 213.8 pounds, with a BMI of 33.4. There has been a 116.8 pound weight loss,(initial weight 330.6 pounds) since starting the program on 11/26/2022 reflecting a 35.3 % total body weight loss and a weight loss of 73.5 pounds since surgery (operative weight 287.3 kris nds) reflecting a 25.5 % TBWL since surgery. No complaints of nausea, emesis, abdominal pain or reflux. Reports infrequent but normal bowel movements every 1- 2 days and uses stool softeners regularly. Taking mvi She has been following the meal plans. She feels very healthy. Will be moving to working nights again. One year labs done showing low vitamin-D Present meal plan includes: home schedule Orgain 2 scoops 8-10 am Orgain 1 scoop 11-1 am Fit crunch bar 2-4 pm meal 6 pm 4-6 forks protein, 4 forks veg Drinking 64 oz water excluding shakes. Exercise routine includes: elliptical /treadmill at gym 3-4 x per week, 300-400 calories Any post op complications: none WILMER: never DM: never HTN: never Hyperlipidemia: never GERD:?0-5 scale ??0 = no symptoms ??1 = symptoms noticeable but not bothersome 2 =symptoms bothersome but not daily ? 3 = symptoms bothersome and daily 4 = symptoms affect daily activities 5 = symptoms are incapacitating, unable to do daily activities ? How bad is the heartburn: 0 ? Heartburn while lying down: 0 ? Heartburn when standing up: 0 ? Heartburn after meals: 0 ? Does heartburn change your diet: 0 ? Does heartburn wake you up from sleep: 0 ? Do you have difficulty swallowin ? Do you have pain with swallowin ? If you take medicine for your reflux, does this affect your daily life: 0 Satisfaction with present condition - satisfied or not satisfied: satisfied [facility] Medical History Microscopic hematuria Left leg pain Physical exam PID (acute pelvic inflammatory disease) Counseling for control regarding intrauterine device (IUD) Potential exposure to STD Well woman exam with routine gynecological exam GERD (gastroesophageal reflux disease) No pertinent past medical history Surgical History No history of previous surgery Family History Maternal Grandmother HTN (hypertension) Paternal Grandmother HTN (hypertension) Diabetes mellitus Paternal Grandfather HTN (hypertension) Diabetes mellitus Alzheimer disease Maternal Aunt Breast cancer Paternal Aunt Breast cancer Social History Household Members: Family Housing: House Are you a primary pet care technician to a significant other at home: No Do you presently have visiting nurse or other home services: No Alcohol intake: current Alcohol intake frequency: does not drink Alcohol type: wine Patient Tobacco Use Status: Never used Tobacco e-Cigarette/Vaping Use: Never Used Second Hand Smoke Exposure: No service: No Current occupational status: employed Current occupational exposures/hazards: No Gender identity: Female Cognitive needs: No Hearing needs: No Vision needs: Yes Female Reproductive History Menstrual Age of Menarche: 10 Telehealth Telehealth Telehealth Platform: Telephone Location of provider rendering services: practice address Location of patient: address on file Patient Identification confirmed using: Name, : Yes Telehealth method: voice only Patient verbally consented to treatment: Yes Patient verbally consented to billing insurance company: Yes Patient informed of any privacy concerns related to visit: Yes Minutes spent on Phone/Video with Pt.: 15 Assessment & Plan Assessment & Plan (1) S/P laparoscopic sleeve gastrectomy: Code(s): Z98.84 - Bariatric surgery status Category: Surgical Plan: Remains obese but making progress. Discussed the importance of exercise as this is her limiting factor. If she is only going to go 5 days a week, recommend 400 calories per day. She may incorporate weight training 1st then cardio. Additionally, given information regarding the right BMI kinza so she may change he r schedule when she transitions to working at nights. Discussed the importance of taking her vitamin-D which I have prescribed. We will have her follow-up in the office in approximately 6 weeks.
== END 2024-04-22 16:15 | disposition home or self-care (01) ==
LOC: HO.HBS 16:04
PROVIDERS: PCP Internal Medicine; Visit Provider Physician Assistant Surgical
DX: E66.811 Obesity, class 1 (principal); Z68.33 Body mass index [BMI] 33.0-33.9, adult; Z90.3 Acquired absence of stomach [part of]; Z98.84 Bariatric surgery status
CPT/HCPCS: 98967

== ENCOUNTER → 2024-04-22 16:04 | Outpatient (BNVA) | payer OTHER, SELFPAY | PROVIDERS: PCP Internal Medicine; Visit Provider Physician Assistant Surgical | DX: E66.9 Obesity, unspecified (principal); K74.00 Hepatic fibrosis, unspecified ==

== ENCOUNTER 2024-05-27 18:19 | Emergency (ER) | payer OTHER, SELFPAY ==
--- NOTE | ~2024-05-27 | CT_ITS ---
CLINICAL HISTORY: severe headache, no hx of same CT head without contrast Comparison: None Findings: Low-density versus artifact measures 1.5 cm dorsally in the right occipital lobe. Differential considerations include manifestations of posterior reversible encephalopathy syndrome PRESS. Infarction or underlying mass are not excluded given sulcal effacement at this time. No acute intracranial hemorrhage. No midline shift or hydrocephalus. Fluid and mucosal thickening of the paranasal sinuses is severe and diffuse. Metal artifacts noted from bilateral ear piercings. Imaged mastoid air cells are well aerated. No acute skull fracture. There is no acute fracture. IMPRESSION: 1. Chbiu-[id number] dorsal right occipital lesion concerning for manifestations of PRESS. Recommend additional characterization with MRI of the brain with and without intravenous contrast. 2. No acute intracranial hemorrhage or hydrocephalus. 3. Multifocal fluid and opacification of the paranasal sinuses as can be seen with pansinusitis. This document has been electronically signed by: Alberto Saucedo MD on 05/27/2024 19:52:26
--- NOTE | ~2024-05-27 | MR_ITS ---
CLINICAL HISTORY: right occipital lesion on CT MR Brain without gadolinium Comparison: Head CT from 05/27/2024 Findings: No restricted diffusion. No acute intracranial hemorrhage or peripheral siderosis. Mild bilateral basal ganglia mineralization noted. No midline shift or hydrocephalus. Mild T2 FLAIR hyperintensity of the occipital lobes as can be seen with mild manifestations of PRESS. Otherwise, essentially normal noncontrast signal of the brain parenchyma.No definite intra-axial mass by noncontrast imaging. Bilateral perivascular spaces noted including basal ganglia regions. Fluid and mucosal thickening of the paranasal sinuses are severe and multifocal. Small right and trace left mastoid effusions. Motion artifacts of the imaged orbits. IMPRESSION: 1. No restricted diffusion acute brain infarction. 2. Mild T2-FLAIR signal of the occipital lobes as can be seen with mild manifestations of PRESS. 3. Fluid and mucosal thickening involving the paranasal sinuses, as can be associated with pansinusitis. This document has been electronically signed by: Alberto Saucedo MD on 05/27/2024 21:13:31
[2024-05-27 18:29] VITALS: BP 147/69; PULSE 80; RESP 18; TEMP 36.8; O2SAT 100; BMI 34.5
--- NOTE | 2024-05-27 18:29 | ED.GENADULT ---
HPI - General Adult General Chief complaint: Headache Stated complaint: migraine Time Seen by Provider: 05/27/24 18:45 Source: patient, RN notes reviewed and old records reviewed Mode of arrival: ambulatory Limitations: no limitations History of Present Illness ED Provider: Jefry [facility] narrative: Patient is a 34-year-old female presenting with complaint of severe left sided headache since Friday. Reports sinus pain and pressure. Taking OTC medications without relief. Denies nausea, photophobia. Has also been having left ear pain. MD complaint: headache, sinus pain Onset (ago): day(s) Related Data Home Medications ?Medication ?Instructions ?Recorded ?Confirmed levonorgestrel 21 mcg/24 hr (up to 1 device intrauterine DIRECTED 04/04/21 12/26/23 8 years) 52 mg intrauterine device (Mirena) Previous Rx's ?Medication ?Instructions ?Recorded bisacodyl 10 mg rectal suppository 10 mg [place] DAILY PRN constipation 02/05/23 (Dulcolax (bisacodyl)) #12 ea cefuroxime axetil 250 mg tablet 250 mg PO BID 7 days #14 tabs 02/20/24 cholecalciferol (vitamin D3) 125 125 mcg PO DAILY #90 caps 04/21/24 mcg (5,000 unit) capsule Allergies Allergy/AdvReac Type Severity Reaction Status Date / Time No Known Allergies Allergy Verified 05/27/24 18:31 [No Known Allergies*] Review of Systems Review of Systems: Yes all other systems are reviewed and are negative Constitutional: Constitutional: Reports as per HPI [facility] Past Medical History Medical History Microscopic hematuria Left leg pain Physical exam PID (acute pelvic inflammatory disease) Counseling for control regarding intrauterine device (IUD) Potential exposure to STD Well woman exam with routine gynecological exam GERD (gastroesophageal reflux disease) No pertinent past medical history Surgical History No history of previous surgery Family History Family History Maternal Grandmother HTN (hypertension) Paternal Grandmother HTN (hypertension) Diabetes mellitus Paternal Grandfather HTN (hypertension) Diabetes mellitus Alzheimer disease Maternal Aunt Breast cancer Paternal Aunt Breast cancer Social History Social History Household Members: Family Housing: House Are you a primary gericare aide to a significant other at home: No Do you presently have visiting nurse or other home services: No Alcohol intake: current Alcohol intake frequency: does not drink Alcohol type: wine Patient Tobacco Use Status: Never used Tobacco Smoked in Last 30 Days: No e-Cigarette/Vaping Use: Never Used Second Hand Smoke Exposure: No Use of substances other than those prescribed or required for medical reasons: No Advance Directives: No Advance Directives Information Provided: No Do you have a plan to hurt others: No Plan Patient : No service: No Current occupational status: employed Current occupational exposures/hazards: No Gender identity: Female Cognitive needs: No Hearing needs: No Vision needs: Yes Physical Exam ED Vital Signs: Vital Signs - 24 hr 05/27/24 18:29 05/27/24 18:38 05/27/24 22:00 Temperature 98.2 F 98.6 F 98.6 F Pulse Rate 80 76 89 Respiratory Rate 18 17 16 Blood Pressure 147/69 H 139/60 119/68 Pulse Oximetry 100 98 99 Oxygen Delivery Method Room Air Room Air Room Air 05/27/24 22:03 Temperature 98.6 F Pulse Rate 76 Respiratory Rate 17 Blood Pressure 139/60 Pulse Oximetry Oxygen Delivery Method BMI result Body Mass Index 34.5 Vital signs have been reviewed and appear to be correct. Blood pressure normal. Heart rate normal. Respiratory rate normal. Temperature normal. Oxygen saturation normal. Const General: cooperative, healthy appearing and no acute distress Orientation/consciousness: oriented to person, oriented to place, oriented to time and patient oriented x3 Limitations: no limitations [facility] Head: Yes normocephalic and Yes atraumatic Ears: external ears normal, TM's normal bilaterally, EAC's normal, mastoids normal and no periauricular adenopathy General nose exam: Normal external nose present Face and sinus: Yes face symmetric and Yes sinus tenderness (left frontal and maxillary tenderness) Mouth: oropharynx normal and moist mucous membranes Throat: Yes uvula midline Eyes Pupils: Equal, round and reactive pupils present Neck Neck: Yes normal visual inspection and Yes supple Resp Effort & Inspection: normal respiratory effort and able to speak in complete sentences Auscultation: clear to auscultation bilaterally Cardio Rate: regular rate Rhythm: regular rhythm Heart sounds: S1 normal heart sound present and S2 normal heart sound present GI Palpation (GI): Soft to palpation and nontender Auscultation: normoactive bowel sounds General: Yes no CVA tenderness Back/Spine/Pelvis Back: no CVA tenderness Skin General skin exam: elasticity normal and turgor normal Neuro General: oriented to person, oriented to place, oriented to time, patient oriented x3, moves all extremities, no focal motor deficits and CN's II-XI intact bilaterally Cranial nerves: Yes Equal, round and reactive pupils present Cognition (Neuro): normal cognition Extrem General: Yes full ROM, Yes no pedal edema and Yes no calf tenderness Psych Mental Status: mental status grossly normal Affect: normal affect Thought process: Normal thought process present Medications Administered Discontinued Medications Generic Name Dose Route Start Last Admin Trade Name Freq PRN Reason Stop Dose Admin Amoxicillin/Clavulanate Potassium 875 mg 05/27/24 18:32 05/27/24 18:43 Amoxicillin/Potassium Clav 875 Mg Tablet PO 05/27/24 18:33 875 mg ONCE ONE Administration Diphenhydramine HCl 25 mg 05/27/24 18:32 05/27/24 19:25 Diphenhydramine Hcl 50 Mg/Ml Vial IVPUSH 05/27/24 18:33 25 mg ONCE ONE Administration Sodium Chloride 1,000 mls @ 999 mls/hr 05/27/24 18:45 05/27/24 18:43 Ns IV 05/27/24 19:45 999 mls/hr .Q1H1M BRI Administration Ketorolac Tromethamine 15 mg 05/27/24 18:32 05/27/24 19:05 Ketorolac Tromethamine 15 Mg/Ml Vial IVPUSH 05/27/24 18:33 Not Given ONCE ONE Ketorolac Tromethamine 15 mg 05/27/24 19:07 05/27/24 19:25 Ketorolac Tromethamine 15 Mg/Ml Vial IVPUSH 05/27/24 19:08 15 mg ONCE ONE Administration Metoclopramide HCl 10 mg 05/27/24 18:32 05/27/24 19:35 Metoclopramide Hcl 10 Mg/2 Ml Vial IVPUSH 05/27/24 18:33 10 mg ONCE ONE Administration Medical Decision Making Medical Decision Making MDM Narrative: Patient is a 34-year-old female presenting with complaint of severe left sided headache since Friday. On exam patient is awake, A+Ox3, VS WNL, afebrile, normal neurological exam without focal deficits, physical exam findings as above. Given reported symptoms and physical exam findings, initial differential includes but is not limited to sinusitis, headache, otitis media, viral illness. Unlikely ICH/SAH, acute glaucoma, carotid artery dissection, CO poisoning, encephalitis, meningitis, preeclampsia, pseudotumor, temporal arteritis/giant cell arteritis. However, given that patient is without history of migraines, will obtain CT head. Viral serology positive for RSV. CT head notable for small to moderate dorsal right occipital lesion concerning for manifestations of PRES as well as pansinusitis. My interpretation is in agreement with the radiologist's interpretation. Case discussed with attending MD, Dr. Abreu, who advises obtaining MRI now. Spoke with MRI, they are able to take patient now. Patient signed out to [facility] pending results of MRI. Differential Diagnosis Differential Diagnoses: The differential diagnosis associated with the presentation includes As per [facility] Admission/Observation Consideration of admission/observation: Escalation of care including admission/observation considered Patient would have been admitted to the hospital had their work up had any findings where hospital admission was appropriate and their clinical presentation warranted hospital admission. Lab Data [facility] Lab Attestation statement: I reviewed the patient's lab results. As per [facility] Labs: Lab Results 05/27/24 Range/Units 18:45 Influenza Type A (PCR) NEGATIVE (Negative) Influenza Type B (PCR) NEGATIVE (Negative) RSV RNA Qual (PCR) POSITIVE A (Negative) SARS-CoV-2 RNA (RT-PCR) NEGATIVE (Negative) Independent Interpretation I performed an independent interpretation of an: CT Scan Interpretation: CT head notable for small to moderate dorsal right occipital lesion concerning for manifestations of PRES as well as pansinusitis. Radiology Impression Discussion of test interpretation with radiology: I have reviewed the radiologist's reading. Radiologist Impression: IMPRESSION: 1. Savkn-[id number] dorsal right occipital lesion concerning for manifestations of PRESS. Recommend additional characterization with MRI of the brain with and without intravenous contrast. 2. No acute intracranial hemorrhage or hydrocephalus. 3. Multifocal fluid and opacification of the paranasal sinuses as can be seen with pansinusitis. External Record Review External record reviewed: Inpatient record, Office record and Outpatient record Tests considered The following testing was considered but not selected: Findings: No restricted diffusion. No acute intracranial hemorrhage or peripheral siderosis. Mild bilateral basal ganglia mineralization noted. No midline shift or hydrocephalus. Mild T2 FLAIR hyperintensity of the occipital lobes as can be seen with mild manifestations of PRESS. Otherwise, essentially normal noncontrast signal of the brain parenchyma.No definite intra-axial mass by noncontrast imaging. Bilateral perivascular spaces noted including basal ganglia regions. Fluid and mucosal thickening of the paranasal sinuses are severe and multifocal. Small right and trace left mastoid effusions. Motion artifacts of the imaged orbits. IMPRESSION: 1. No restricted diffusion acute brain infarction. 2. Mild T2-FLAIR signal of the occipital lobes as can be seen with mild manifestations of PRESS. 3. Fluid and mucosal thickening involving the paranasal sinuses, as can be associated with pansinusitis. 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 This syndrome is usually self-limited, however it is important to follow-up and return for new or worsening symptoms Prescriptions: No Action cholecalciferol (vitamin D3) 125 mcg (5,000 unit) capsule 125 mcg PO DAILY Qty: 90 0RF cefuroxime axetil 250 mg tablet 250 mg PO BID 7 Days Qty: 14 0RF Mirena 20 mcg/24 hours (7 yrs) 52 mg intrauterine device 1 device intrauterine DIRECTED bisacodyl [Dulcolax (bisacodyl)] 10 mg suppository 10 mg [place] DAILY PRN (Reason: constipation) Qty: 12 0RF Print Language: Kiswahili
[2024-05-27 18:38] VITALS: BP 139/60; PULSE 76; RESP 17; TEMP 37; O2SAT 98
[2024-05-27] MEDS: Amoxicillin/Potassium Clav 875 MG TABLET PO (18:43)
[2024-05-27] MEDS: 0.9 % Sodium Chloride 1,000 ML 999 ML IV (18:43)
[2024-05-27] MEDS: diphenhydrAMINE HCL 50 MG/ML VIAL 25 MG IVPUSH (19:25)
[2024-05-27] MEDS: Ketorolac Tromethamine 15 MG/ML VIAL IVPUSH (19:25)
[2024-05-27 19:29] LABS: Influenza A PCR NEGATIVE (Negative); Influenza B PCR NEGATIVE (Negative); Resp Syncy Virus RNA Qual PCR POSITIVE (Negative); SARS COV2 PCR INHOUSE NEGATIVE (Negative)
[2024-05-27] MEDS: Metoclopramide HCl 10 MG/2 ML VIAL IVPUSH (19:35)
[2024-05-27 22:00] VITALS: BP 119/68; PULSE 89; RESP 16; TEMP 37; O2SAT 99
[2024-05-27 22:03] VITALS: BP 139/60; PULSE 76; RESP 17; TEMP 37
[2024-05-27 23:18] VITALS: BP 139/60; PULSE 76; RESP 17; TEMP 37
== END 2024-05-27 23:20 | disposition home or self-care (01) ==
PROVIDERS: Registered Nurse Emergency; Emergency Provider Internal Medicine; PCP Internal Medicine
DX: J22 Unspecified acute lower respiratory infection (principal); B97.4 Respiratory syncytial virus as the cause of diseases classified elsewhere; J32.9 Chronic sinusitis, unspecified; G43.909 Migraine, unspecified, not intractable, without status migrainosus; Z03.818 Encounter for observation for suspected exposure to other biological agents ruled out; Z79.899 Other long term (current) drug therapy
CPT/HCPCS: 0241U; 70450; 70551; 96374; 96375; 99285; J1200; J1885; J2765

== ENCOUNTER → 2024-05-27 18:32 | Outpatient (BNV) | payer OTHER, SELFPAY | PROVIDERS: Emergency Provider Internal Medicine; PCP Internal Medicine; Visit Provider Radiology Neuroradiology | DX: R51.9 Headache, unspecified (principal); G93.89 Other specified disorders of brain | CPT/HCPCS: 70450; 70551 ==

== ENCOUNTER 2024-06-08 19:36 | Emergency (ER) | payer OTHER, SELFPAY ==
[2024-06-08 19:55] VITALS: BP 128/68; PULSE 76; RESP 16; TEMP 36.6; O2SAT 98; BMI 34.4
--- NOTE | 2024-06-08 20:22 | ED_ITS ---
HPI - Back Pain/Injury General Chief Complaint: Back Pain/Injury Stated Complaint: sciatica Time Seen by Provider: 06/08/24 20:22 Source: patient Mode of arrival: ambulatory Limitations: no limitations History of Present Illness HPI Narrative: Patient is a 34-year-old female who presents emergency department for evaluation. She reports yesterday she had onset of pain from the left lower back and left buttock feeling similar to what she has experienced in the past with sciatica. She states that today the pain is radiating down the entirety of her left leg making ambulation difficult. She reports exacerbation of pain with movement of the leg. She feels most comfortable lying left-sided with pressure on the left buttock. Denies recent precipitating injury, fevers, chills, burning with micturition, urinary frequency/urgency/hesitancy, bladder or bowel dysfunction, numbness or tingling of the perineum or bilateral legs. Denies any recent surgical procedures, any known immune compromising conditions, personal history of cancer, or IV drug usage. MD elicited complaint: back pain Related Data Home Medications ?Medication ?Instructions ?Recorded ?Confirmed levonorgestrel 21 mcg/24 hr (up to 1 device intrauterine DIRECTED 04/04/21 12/26/23 8 years) 52 mg intrauterine device (Mirena) Previous Rx's ?Medication ?Instructions ?Recorded bisacodyl 10 mg rectal suppository 10 mg [place] DAILY PRN constipation 02/05/23 (Dulcolax (bisacodyl)) #12 ea cefuroxime axetil 250 mg tablet 250 mg PO BID 7 days #14 tabs 02/20/24 cholecalciferol (vitamin D3) 125 125 mcg PO DAILY #90 caps 04/21/24 mcg (5,000 unit) capsule cyclobenzaprine 10 mg tablet 10 mg PO TID PRN muscle spasm #20 06/08/24 tabs Allergies Allergy/AdvReac Type Severity Reaction Status Date / Time No Known Allergies Allergy Verified 06/08/24 19:55 [No Known Allergies*] Review of Systems Review of Systems: Yes all other systems are reviewed and are negative [facility] Past Medical History Attestation statement: The following information was validated with the patient. Source: old records reviewed Medical History Microscopic hematuria Left leg pain Physical exam PID (acute pelvic inflammatory disease) Counseling for control regarding intrauterine device (IUD) Potential exposure to STD Well woman exam with routine gynecological exam GERD (gastroesophageal reflux disease) No pertinent past medical history Surgical History No history of previous surgery Family History Family History Maternal Grandmother HTN (hypertension) Paternal Grandmother HTN (hypertension) Diabetes mellitus Paternal Grandfather HTN (hypertension) Diabetes mellitus Alzheimer disease Maternal Aunt Breast cancer Paternal Aunt Breast cancer Social History Social History Household Members: Family Housing: House Are you a primary dialysis patient care technician to a significant other at home: No Do you presently have visiting nurse or other home services: No Alcohol intake: current Alcohol intake frequency: does not drink Alcohol type: wine Patient Tobacco Use Status: Never used Tobacco e-Cigarette/Vaping Use: Never Used Second Hand Smoke Exposure: No Advance Directives: No Advance Directives Information Provided: No Do you have a plan to hurt others: No Plan service: No Current occupational status: employed Current occupational exposures/hazards: No Gender identity: Female Cognitive needs: No Hearing needs: No Vision needs: Yes Physical Exam Vital Signs: Vital Signs: Last Vital Signs Temp 97.8 F 06/08/24 19:55 Pulse 76 06/08/24 19:55 Resp 16 06/08/24 19:55 BP 128/68 06/08/24 19:55 Pulse Ox 98 06/08/24 19:55 O2 Del Method Room Air 06/08/24 19:55 BMI result Body Mass Index 34.4 Appearance: Alert.?Oriented to person, place and time. No acute distress.?Normal affect. Eyes: Pupils equal, round and reactive to light.? ENT: Pharynx normal.?? Neck: Normal inspection.? Neck supple.?? CVS: Heart sounds normal. Normal heart rate and rhythm.? Pulses normal; bilateral radial pulses 2+, bilateral posterior tibial/dorsalis pedis pulses 2+.? Respiratory: No respiratory distress.? Lung sounds clear to auscultation bilaterally?? Abdomen: Soft and non-tender. Normoactive bowel sounds. No pulsatile mass.?? Skin: Skin warm and dry.? Normal skin color.? Normal skin turgor.?? Extremities: No lower extremity edema.? No calf ttp? Back: + mild paraspinal muscular tenderness from lumbar region to coccyx. No CVA tenderness. No midline spinal tenderness, step-off's, or deformity. Full ROM intact in bilateral lower extremities. Straight leg test negative on right; Straight leg test positive on left. No rashes, lesions, areas of induration or fluctuance, or signs of infection noted., Neuro: Moves all extremities spontaneously. 5/5 strength in hip extension/flexion, abduction, adduction. Sensation to light touch intact bilaterally. Patellar and Achilles reflex 2+ bilaterally. No ataxia, gait normal and steady.. No focal neuro deficits. Course Reevaluation(s) Reevaluation #1: Pain improved after receiving Toradol and cyclobenzaprine but was still present, offered diazepam she however on declined. She was able to get out of chair unassisted ambulatory slow steady gait. Requesting discharge home which I feel is reasonable at this time. Discussed conservative treatment, prescription for muscle relaxants sent to pharmacy, advised outpatient follow-up with primary care doctor. Medications Administered Discontinued Medications Generic Name Dose Route Start Last Admin Trade Name Freq PRN Reason Stop Dose Admin Cyclobenzaprine HCl 10 mg 06/08/24 20:29 06/08/24 20:47 Cyclobenzaprine Hcl 10 Mg Tablet PO 06/08/24 20:30 10 mg ONCE ONE Administration Diazepam 2.5 mg 06/08/24 21:54 06/08/24 22:23 Diazepam 10 Mg/2 Ml Cartridge IM 06/08/24 21:55 Not Given STAT STA Ketorolac Tromethamine 15 mg 06/08/24 20:29 06/08/24 20:46 Ketorolac Tromethamine 15 Mg/Ml Vial IM 06/08/24 20:30 15 mg ONCE ONE Administration Ondansetron HCl 4 mg 06/08/24 22:12 06/08/24 22:25 Ondansetron Odt 4 Mg Tab.Rapdis TRANSLINGU 06/08/24 22:13 4 mg ONCE ONE Administration Medical Decision Making Medical Decision Making MDM Narrative: Patient is a 34-year-old female presents emergency department for evaluation of left lower back pain radiating down the leg as per HPI. Pain is most consistent with muscular pain/lumbar radiculopathy, although cannot completely exclude herniated disc. On neurological exam there are no deficits. Atraumatic in nature, no acute bony tenderness, unlikely to be spinal fracture. Exam findings not consistent with cauda equina syndrome. No recent fevers, unintentional weight loss, history of IVDA, high-risk past medical history, immunosuppression, recent surgery or lumbar puncture to suggest spinal infection, epidural abscess, malignancy. Not consistent with AAA or dissection. No genitourinary symptoms, afebrile, no CVA tenderness, unlikely urinary tract infection, pyelonephritis, renal colic. No history of nephrolithiasis/ureteral calculi. Will try management with Toradol and cyclobenzaprine in the emergency department. Differential Diagnosis Differential Diagnoses: The differential diagnosis associated with the presentation includes ( see narrative above) Admission/Observation Consideration of admission/observation: Escalation of care including admission/observation considered ( see narrative above) Independent Historian Clinical information obtained from an independent historian. History obtained from or confirmed by: Friend External Record Review External record reviewed: Outpatient record Prescription Management I considered prescription management with: Pain Medication Discharge Plan Discharge Clinical Impression: Lumbar radiculopathy Patient Disposition: Home, Self-Care Instructions: Lumbar Radiculopathy (ED), Lower Back Exercises (ED) Additional Instructions: Be sure to rest over the next few days, apply ice/heat to areas of pain for 10- 15 minutes 4-6 times daily. Refrain from use of NSAIDs given your history of gastric surgery. You can take Tylenol 500 mg, 2 tablets (1,000mg) every 4-6 hours as needed for pain, but not to exceed 3 doses daily (3,000mg).? Or pain unrelieved by Tylenol/acetaminophen I have sent a prescription for cyclobenzaprine/Flexeril, a muscle relaxant to your pharmacy. This medication may make you drowsy. You should not drive, drink alcohol, or work while taking this medication. Contact your primary care provider to arrange for a follow-up visit. You may return to emergency department any new or worsening symptoms or concerns. Prescriptions: New cyclobenzaprine 10 mg tablet 10 mg PO TID PRN (Reason: muscle spasm) Qty: 20 0RF No Action cholecalciferol (vitamin D3) 125 mcg (5,000 unit) capsule 125 mcg PO DAILY Qty: 90 0RF cefuroxime axetil 250 mg tablet 250 mg PO BID 7 Days Qty: 14 0RF Mirena 20 mcg/24 hours (7 yrs) 52 mg intrauterine device 1 device intrauterine DIRECTED bisacodyl [Dulcolax (bisacodyl)] 10 mg suppository 10 mg [place] DAILY PRN (Reason: constipation) Qty: 12 0RF Referrals: Caryl Horvath MD [Primary Care Provider] - Print Language: Djiboutian
[2024-06-08] MEDS: Ketorolac Tromethamine 15 MG/ML VIAL IM (20:46)
[2024-06-08] MEDS: Cyclobenzaprine HCl 10 MG TABLET PO (20:47)
[2024-06-08] MEDS: Ondansetron ODT 4 MG TAB.RAPDIS TRANSLINGU (22:25)
[2024-06-08 22:38] VITALS: BP 114/62; PULSE 70; RESP 16; TEMP 37.4; O2SAT 99
[2024-06-08 23:03] VITALS: BP 114/62; PULSE 70; RESP 16; TEMP 37.4; O2SAT 99
== END 2024-06-08 22:50 | disposition home or self-care (01) ==
PROVIDERS: Emergency Provider Emergency Medicine Emergency Medical Services; PCP Internal Medicine
DX: M54.16 Radiculopathy, lumbar region (principal); M54.50 Low back pain, unspecified; M79.605 Pain in left leg; Z79.899 Other long term (current) drug therapy
CPT/HCPCS: 96372; 99284; J1885

== ENCOUNTER 2024-07-09 14:30 | Outpatient (AMB) | payer OTHER, SELFPAY ==
--- NOTE | 2024-07-09 09:14 | MHC.OFFVISWM ---
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 Presents for 1 year 3 months post op visit. Weight today is 203.2 pounds, with a BMI of 31.8. There has been a 127.4 pound weight loss,(initial weight 330.6 pounds) since starting the program on 11/26/2022 reflecting a 38.5 % total body weight loss and a weight loss of 84.1 pounds since surgery (operative weight 287.3 pounds) reflecting a 29.2 % TBWL since surgery. No complaints of nausea, emesis, abdominal pain or reflux. Reports infrequent but normal bowel movements every 1-2 days and uses stool softeners regularly. Taking mvi She has been following the meal plans. She feels very healthy. Present meal plan includes: home schedule Orgain 2 scoops 8-10 am Orgain 1 scoop 11-1 am Fit crunch bar 2-4 pm meal 6 pm 4-6 forks protein, 4 forks veg Drinking 64 oz water excluding shakes. Exercise routine includes: walk daily outside elliptical /treadmill at gym 4-5 x per week, 400 calories [facility] Medical History Microscopic hematuria Left leg pain Physical exam PID (acute pelvic inflammatory disease) Counseling for control regarding intrauterine device (IUD) Potential exposure to STD Well woman exam with routine gynecological exam GERD (gastroesophageal reflux disease) No pertinent past medical history Surgical History No history of previous surgery Family History Maternal Grandmother HTN (hypertension) Paternal Grandmother HTN (hypertension) Diabetes mellitus Paternal Grandfather HTN (hypertension) Diabetes mellitus Alzheimer disease Maternal Aunt Breast cancer Paternal Aunt Breast cancer Social History Household Members: Family Housing: House Are you a primary lawn care technician to a significant other at home: No Do you presently have visiting nurse or other home services: No Alcohol intake: current Alcohol intake frequency: does not drink Alcohol type: wine Patient Tobacco Use Status: Never used Tobacco e-Cigarette/Vaping Use: Never Used Second Hand Smoke Exposure: No service: No Current occupational status: employed Current occupational exposures/hazards: No Gender identity: Female Cognitive needs: No Hearing needs: No Vision needs: Yes Female Reproductive History Menstrual Age of Menarche: 10 Telehealth Telehealth Telehealth Platform: Telephone Location of provider rendering services: practice address Location of patient: address on file Patient Identification confirmed using: Name, : Yes Telehealth method: voice only Patient verbally consented to treatment: Yes Patient verbally consented to billing insurance company: Yes Patient informed of any privacy concerns related to visit: Yes Minutes spent on Phone/Video with Pt.: 15 Assessment & Plan Assessment & Plan (1) S/P laparoscopic sleeve gastrectomy: Code(s): Z98.84 - Bariatric surgery status Category: Surgical Plan: Patient is doing well and making good progress. She has lost over 120 lb. Encouraged to continue with her meal plan and increase exercise to 400 calories burned per day, 5 days per week. We will have her return to the office in approximately 3 months with the understanding that she will call sooner should there be any questions or concerns.
[2024-07-09 09:21] VITALS: BMI 31.8
--- OUTSIDE RECORDS SUMMARY | 2024-07-09 16:15 | XMS_ITS | Encounter Summary ---
Author Organization [facility] Address [address] [place] [address] Phone Care Team Providers Care House Painter Name Role Phone Adri Cordoba MD Primary Care Provider [phone] Encounter Details Date Type Department Care Team (Late st Contact Info) Description 11/21/2016 Conversion Encounter [facility] [place] [address] [place] [address] Social History Tobacco Use Types Packs/Day Years Used Date Smoking Tobacco: Never Assessed Comments Unknown Sex and Gender Information Value Date Recorded Sex Assigned at Not on file Legal Sex Female 4:31 PM EDT Gender Identity Not on file Sexual Orientation Not on file documented as of this encounter Plan of Treatment Not on file documented as of this encounter Visit Diagnoses Not on filedocumented in this encounter Care Teams House Painter Relationship Specialty Start Date End Date Adri Cordoba MD [address] [place] [address] PCP - General 11/15/16 09/19/22 documented as of this encounter
--- OUTSIDE RECORDS SUMMARY | 2024-07-09 16:15 | XMS_ITS | Clinical Summary ---
Author Organization [facility] Address [address] [place] [id number] Phone Care Team Providers Care Maintenance Superintendent Name Role Phone Unavailable Primary Care Provider Unavailabl e Immunizations Immunization Administration Dates Next Due DTP 06/28/1993, 1,1989,06/23,1989 HPV, Quadrivalent 08/05/2007,04/03/2007,12/02/19 07 Hep B, ped/adol 09/18/2000,02/11/2000,02/07/1999 Hib (PRP-T) 05/07/1990,03/02/1990 MMR 02/11/2000,05/07/1990 Meningococcal Conj (Menactra) MCV4P 12/01/2006 OPV 06/28/1993, 1,1989,04/08 Td (adult) (Tenivac), 5 Lf t etanus toxoid, PF, adsorbed 02/07/1999 Tdap 12/01/2006 Family History Relation Name Status Comments Father Alive Father: Alive a nd well Maternal Grandmother Materna l grandmother: Diabetes mellitus Mother Alive Mother: Migrain es Other 1 aunt: Diabetes mellitus Other 2 No family histo ry of Developmental dislocation of hip, No family history of ADD/ADHD, No family history of Seizure disorder, No family history of Elevated cholesterol, No family history of Deafness, No family history of Strabismus/amblyopia, No family history of Sudden /[place] under age 55, No family history of Obesity Sister 1 Alive Sister: Alive a nd well, Alive and well Sister 2 Alive Sister: Alive a nd well, Alive and well Social History Tobacco Use Types Packs/Day Years Used Date Smoking Tobacco: Never Assessed Comments Unknown Sex and Gender Information Value Date Recorded Sex Assigned at Not on file Legal Sex Female 4:31 PM EDT Gender Identity Not on file Sexual Orientation Not on file Plan of Treatment Health Maintenance Due Date Last Done Comments Varicella Vaccines (1 of 2 - 13+ 2-dose series) 2002 DTaP,Tdap,and Td Vaccines (7 - Td or Tdap) 12/01/2016 12/01/2006, 02/07/1999, 06/28/1993, Additional history exists Influenza Vaccines (#1) 2023 COVID-19 Vaccine (2023- season) 2023 HIB Vaccines Completed 05/07/1990, 03/02/1990 IPV Vaccines Completed 06/28/1993, 08/07, 1989, Additional history exists MMR Vaccines Completed 02/11/2000, 05/07/1990 Hepatitis B Vaccines Completed 09/18/2000, 02/11/2000, 02/07/1999 Meningococcal Vaccine Completed 12/01/2006 HPV Vaccines Completed 08/05/2007, 03/08, 12/01/2006 Hepatitis A Vaccines Aged Out No long er eligible based on patient's age to complete this topic Men B Vaccine Aged Out No longer elig ible based on patient's age to complete this topic Pneumococcal Vaccine Aged Out No long er eligible based on patient's age to complete this topic
== END 2024-07-09 14:48 | disposition home or self-care (01) ==
LOC: HO.HBS 14:46
PROVIDERS: PCP Internal Medicine; Visit Provider Physician Assistant Surgical
DX: E66.811 Obesity, class 1 (principal); Z68.31 Body mass index [BMI] 31.0-31.9, adult; Z90.3 Acquired absence of stomach [part of]; Z98.84 Bariatric surgery status
CPT/HCPCS: 98967

== ENCOUNTER 2025-04-01 02:52 | Emergency (ER) | payer OTHER, SELFPAY ==
--- NOTE | 2025-04-01 | ECG_ITS ---
Test Reason : CP Blood Pressure : */* mmHG Vent. Rate : 56 BPM Atrial Rate : 56 BPM P-R Int : 150 ms QRS Dur : 86 ms QT Int : 432 ms P-R-T Axes : 37 7 4 degrees QTcB Int : 416 ms Sinus bradycardia with sinus arrhythmia Cannot rule out Anterior infarct , age undetermined Abnormal ECG When compared with ECG of 06-Dec-2022 12:02, No significant change was found Referred By: Generic ED Physician Electronically Signed By: JUANPABLO LOPEZ MD
--- NOTE | ~2025-04-01 | US_ITS ---
CLINICAL HISTORY: RUQ epigastric pain US abdomen limited Comparison: US/SR - US ABDOMEN COMPLETE WITH LIVER ELASTOGRAPHY - 01/28/23 09:01 EDT Findings: The visualized pancreas is normal. The aorta and inferior vena cava are normal caliber. The liver is mildly echogenic measuring 18.1 cm in length There is no intrahepatic bile duct dilatation. The common duct is 4 mm in diameter. The gallbladder is normal. There is no sonographic Wolfe sign. Cover Inspector reports the pain is predominantly midline. The main portal vein is antegrade. The right kidney is 11.2 cm in length. No ascites. IMPRESSION: Hepatomegaly with mild hepatic steatosis. Unremarkable gallbladder. This document has been electronically signed by: Nora Heredia MD on 04/01/2025 06:05:21
[2025-04-01 02:54] VITALS: BP 147/73; PULSE 59; RESP 18; TEMP 36.7; O2SAT 100; BMI 39.2
[2025-04-01 03:26] LABS: Hematocrit 40.8 % (37.0-47.0); Hemoglobin 13.3 g/dl (12.0-16.0); Imm Gran Abs Auto 0.02 X10*3/uL (0.00-0.03); Imm Gran Pct Auto 0.2 % (0.0-0.4); Lymphocytes Absolute Auto 2.6 X10*3/uL (1.2-4.9); MANUAL DIFF FLAG NO; Mean Corpuscular HGB Conc 32.6 g/dl (31.0-35.0); Mean Corpuscular Hemoglobin 27.9 pg (27.0-33.0); Mean Corpuscular Volume 85.7 fL (80.0-98.0); NRBC Abs Auto 0.000 X10*3/uL (0.0-0.012); NRBC Pct Auto 0.0 /100WBC (0.0-0.2); Platelet Count 328 X10*3/uL (160-400); Red Blood Count 4.76 X10*6/uL (4.20-5.50); White Blood Count 9.7 X10*3/uL (4.8-10.8)
--- OUTSIDE RECORDS SUMMARY | 2025-04-01 03:29 | XMS_ITS ---
Author Organization Unknown ENCOUNTERS Encounter Performer Location Date Diagnosis Diagnosis Status Emergency [facility] [address] [place] [address] [id number] Pre Admit [facility] [address] [place] [address] [id number] Emergency [facility] [address] [place] [address] [id number] SHI Pre Admit [facility] [address] [place] [address] [id number] Emergency [facility] [address] [place] [address] [id number] SHI Pre Admit [facility] [address] [place] [address] [id number] In[facility] [address] [place] [address] [id number] SHI Emergency [facility] [address] [place] [address] [id number] SHI Pre Admit [facility] [address] [place] [address] [id number] Emergency [facility] [address] [place] [address] [id number] AIP Outpatient [facility] [address] [place] [address] [id number] SHI Emergency [facility] [address] [place] [address] [id number] SHI *Note: Encounters from your own facility or health system may be excluded. Allergies, Adverse Reactions, Alerts Allergen Type Severity Identification Date Medications Name Date Quantity Days Supplied GPI Number
--- OUTSIDE RECORDS SUMMARY | 2025-04-01 03:29 | XMS_ITS | Encounter Summary ---
Author Organization [facility] Address [address] [place] [address] Phone Care Team Providers Care Singeing Torch Operator Name Role Phone Adri Cordoba MD Primary Care Provider [phone] Encounter Details Date Type Department Care Team (Late st Contact Info) Description 11/21/2016 Conversion Encounter [facility] [place] [address] [place] [address] Social History Tobacco Use Types Packs/Day Years [...] on filedocumented in this encounter Care Teams Singeing Torch Operator Relationship Specialty Start Date End Date Adri Cordoba MD [address] [place] [address] PCP - General 11/15/16 09/19/22 documented as of this encounter
--- OUTSIDE RECORDS SUMMARY | 2025-04-01 03:29 | XMS_ITS | Clinical Summary ---
Author Organization [facility] Address [address] [place] [address] Phone Care Team Providers Care Wire Mesh Gate Assembler Name Role Phone Unavailable Primary Care Provider [...] of Strabismus/amblyopia, No family history of Sudden /[place] under age 55, No family history of [...] 06/28/1993, Additional history exists Influenza Vaccines (#1) 2024 COVID-19 Vaccine ( - 2024- season) 2024 HIB Vaccines Completed 05/07/1990, 03/02/1990 IPV Vaccines [...]
[2025-04-01 03:45] LABS: Alanine Aminotransferase 17 U/L (0-31); Albumin Level 4.1 g/dL (3.5-5.0); Alkaline Phosphatase 75 U/L (39-117); Anion Gap 12 (12-20); Aspartate Amino Transferase 18 U/L (5-31); Blood Urea Nitrogen 16 mg/dL (9-16); Calcium 9.4 mg/dL (8.4-10.2); Carbon Dioxide 26 mmol/L (22-29); Chloride 108 mmol/L (96-108); Creatinine Clr Calc Pharmacy 140.3; Estimated Glomerular Filt Rate > 60; Lipase 36 U/L (8-78); Potassium 4.1 mmol/L (3.3-5.1); Sodium 142 mmol/L (135-145); Total Protein 7.7 g/dL (6.5-8.0); Troponin-I High Sensitivity < 2.7 ng/L (<3.5-17.0)
[2025-04-01] MEDS: Lactated Ringers 1,000 ML 999 ML IV (04:01)
[2025-04-01 04:03] VITALS: BP 123/65; PULSE 57; RESP 18; O2SAT 100
--- NOTE | 2025-04-01 05:32 | ED_ITS ---
HPI - Abdominal Pain General Chief Complaint: Abdominal Pain Stated Complaint: gastric pain Time Seen by Provider: 04/01/25 03:18 Source: patient Mode of arrival: ambulatory Limitations: no limitations History of Present Illness ED Provider: Dr. Jessica Haas HPI narrative: 35-year-old female presenting with severe, episodic epigastric pain. ? Two days ago the patient experienced sudden, severe epigastric pain intense enough that she could not walk. She attempted relief with a hot shower and vomited several times; pain then resolved. ? Last night around 23:00 the pain recurred in the same epigastric location. She has been unable to get comfortable since. Pain is localized ?pressure in one spot,? (epigastric) worse when lying flat, does not radiate to the back, and described by patient as a severe pain. Not clearly associated with food intake. ? No prior similar episodes. ? Past surgical history: gastric sleeve surgery a few years ago; gallbladder intact; no other abdominal surgeries. ? Gynecologic history: levonorgestrel IUD in place; currently menstruating; pain does not feel like menstrual cramps. ? Medications taken today: Pepcid (famotidine) earlier; benefit unclear. No Tylenol or other analgesics taken today. ? Allergies: Denies drug allergies but states she ?can?t take ibuprofen.? ? Family denies history of gallstones or gallbladder disease. Related Data Home Medications ?Medication ?Instructions ?Recorded ?Confirmed levonorgestrel (Mirena) 1 device intrauterine DIR ECTED 04/04/21 07/09/24 Previous Rx's ?Medication ?Instructions ?Recorded bisacodyl 10 mg rectal suppository 10 mg MI DAILY PRN constipation 02/05/23 (Dulcolax (bisacodyl)) #12 ea cholecalciferol (vitamin D3) 125 125 mcg PO DAILY #90 caps 04/21/24 mcg (5,000 unit) capsule omeprazole 20 mg capsule,delayed 20 mg PO DAILY #30 ca ps 04/01/25 release ondansetron 4 mg disintegrating 4 mg PO Q8H PRN nausea and 04/01/25 tablet vomiting #10 tabs prochlorperazine 25 mg rectal 25 mg MI BID PRN nausea and 04/01/25 suppository (Compazine) vomiting #12 ea Allergies Allergy/AdvReac Type Severity Reaction Status Date / Time No Known Allergies (No Known Allergy Verified 04/01/25 02:55 Allergies*) Review of Systems Review of Systems as per HPI, full review of systems performed and negative but for the above mentioned pertinent positives and negatives. [facility] Past Medical History Medical History Microscopic hematuria Left leg pain Physical exam PID (acute pelvic inflammatory disease) Counseling for control regarding intrauterine device (IUD) Potential exposure to STD Well woman exam with routine gynecological exam GERD (gastroesophageal reflux disease) No pertinent past medical history Surgical History No history of previous surgery Family History Family History Maternal Grandmother HTN (hypertension) Paternal Grandmother HTN (hypertension) Diabetes mellitus Paternal Grandfather HTN (hypertension) Diabetes mellitus Alzheimer disease Maternal Aunt Breast cancer Paternal Aunt Breast cancer Social History Social History Household Members: Family Housing: House Are you a primary zoo caretaker to a significant other at home: No Do you presently have visiting nurse or other home services: No Alcohol intake: current Alcohol intake frequency: holidays/special occasions only Alcohol type: wine Patient Tobacco Use Status: Never used Tobacco Smoked in Last 30 Days: No e-Cigarette/Vaping Use: Never Used Second Hand Smoke Exposure: No Advance Directives: No Advance Directives Information Provided: Yes Patient : No service: No Current occupational status: employed Current occupational exposures/hazards: No Gender identity: Female Cognitive needs: No Hearing needs: No Vision needs: Yes Physical Exam ED Exam Exam: GENERAL: Ill-Appearing, appears uncomfortable. SKIN: Normal skin color for ethnicity, warm, dry, no rashes noted. HEENT:? Normocephalic, atraumatic, no stridor, dry mucous membranes, dentition intact, EOMI. NECK: Soft, supple, full ROM, midline structures nontender, no step-offs, no deformities, no lymphadenopathy. CHEST: Heart regular bradycardia, no murmurs, symmetric chest rise and fall. PULMONARY: Clear to auscultation bilaterally, diminished at the bases, no labored breathing, no wheezes/rhales/rhonchi. ABDOMINAL: Soft, nondistended, nontender, quiet bowel sounds in all quadrants. : Deferred. MUSCULOSKELETAL: Normal tone, full range of motion, no deformities, no peripheral edema. NEURO: Alert and oriented x3, CN II through XII intact, equal strength and sensation bilateral upper and lower extremities, no focal neurologic deficits.? PSYCHIATRIC: Flat affect, fluid speech, good eye contact and appropriate demeanor. Vital Signs: Vital Signs - 24 hr 04/01/25 02:54 04/01/25 04:03 Temperature 98.1 F Pulse Rate 59 57 Respiratory Rate 18 18 Blood Pressure 147/73 H 123/65 Pulse Oximetry 100 100 Oxygen Delivery Method Room Air Room Air BMI result Body Mass Index 39.2 Medical Decision Making Medical Decision Making MDM Narrative: 35-year-old female with history of gastric sleeve presenting with acute, episodic epigastric pain. Differential discussed with patient includes obstruction, hernia, biliary colic, gallstones, and pancreatitis; exact etiology undetermined at this time. Problem #1: Epigastric abdominal pain, undifferentiated etiology Assessment: Severe, intermittent epigastric pain without radiation; episodes associated with vomiting; worse when lying flat. Physical exam notable for discomfort and poor color. Differential considerations include hernia, obstruction, biliary colic, gallstones, and pancreatitis. Plan: * Provide analgesia for symptom control (medication administered as discussed with patient). * US RUQ to rule out gallstones/infection Workup reassuring. Pain improved after treatment with IV analagesia/antiemetics. Tolerating PO. Encouraged EGD by GI or her bariatric surgeon to r/o PUD. Using shared decision making, plan for discharge home to follow-up with primary care and/or specialist.? Patient understands and agrees with plan for discharge.? Discharged home in stable condition. Differential Diagnosis Differential Diagnoses: The differential diagnosis associated with the presentation includes (as above) Admission/Observation Consideration of admission/observation: Escalation of care including admission/observation considered Lab Data MDM Lab Attestation statement: I reviewed the patient's lab results. 04/01/25 03:20 04/01/25 03:20 Labs: Lab Results 04/01/25 Range/Units 03:20 WBC 9.7 (4.8-10.8) X10*3/uL RBC 4.76 (4.20-5.50) X10*6/uL Hgb 13.3 (12.0-16.0) g/dl Hct 40.8 (37.0-47.0) % MCV 85.7 (80.0-98.0) fL MCH 27.9 (27.0-33.0) pg MCHC 32.6 (31.0-35.0) g/dl RDW 14.0 (11.0-16.0) % Plt Count 328 (160-400) X10*3/uL MPV 9.5 (9.4-12.3) fL Immature Gran % (Auto) 0.2 (0.0-0.4) % Neut % (Auto) 64.4 (45-73) % Lymph % (Auto) 26.7 (20-40) % Glacier % (Auto) 6.6 (2-11) % Eos % (Auto) 1.3 (0-4) % Baso % (Auto) 0.8 (0-2) % Lymph # (Auto) 2.6 (1.2-4.9) X10*3/uL [place]acier # (Auto) 0.6 (0.1-1.2) X10*3/uL Eos # (Auto) 0.1 (0.0-0.4) X10*3/uL Baso # (Auto) 0.1 (0.0-0.2) X10*3/uL Abs Immat Gran (auto) 0.02 (0.00-0.03) X10*3/uL Absolute Neuts (auto) 6.2 (2.0-8.3) x10*3/uL Absolute Nucleated RBC 0.000 (0.0-0.012) X10*3/uL Nucleated RBC % (auto) 0.0 (0.0-0.2) /100WBC Sodium 142 (135-145) mmol/L Potassium 4.1 (3.3-5.1) mmol/L Chloride 108 (96-108) mmol/L Carbon Dioxide 26 (22-29) mmol/L Anion Gap 12 (12-20) BUN 16 (9-16) mg/dL Creatinine 0.72 (0.5-1.4) mg/dL Estim Creat Clear Calc 140.3 Estimated GFR > 60 Random Glucose 98 (60-115) mg/dL Calcium 9.4 (8.4-10.2) mg/dL Total Bilirubin 0.3 (0.0-1.0) mg/dL AST 18 (5-31) U/L ALT 17 (0-31) U/L Alkaline Phosphatase 75 (39-117) U/L Troponin I High Sens < 2.7 (<3.5-17.0) ng/L Total Protein 7.7 (6.5-8.0) g/dL Albumin 4.1 (3.5-5.0) g/dL Lipase 36 (8-78) U/L Beta HCG, Quant < 2 mIU/mL Independent Interpretation I performed an independent interpretation of an: EKG Interpretation: sinus bradycardia, no ishcemic changes, normal axis, normal intervals Radiology Impression Discussion of test interpretation with radiology: I have reviewed the radiologist's reading. Radiologist Impression: US abdomen limited Comparison: US/SR - US ABDOMEN COMPLETE WITH LIVER ELASTOGRAPHY - 01/28/23 09:01 EDT Findings: The visualized pancreas is normal. The aorta and inferior vena cava are normal caliber. The liver is mildly echogenic measuring 18.1 cm in length There is no intrahepatic bile duct dilatation. The common duct is 4 mm in diameter. The gallbladder is normal. There is no sonographic Wolfe sign. Wind Turbine Electrical Engineer reports the pain is predominantly midline. The main portal vein is antegrade. The right kidney is 11.2 cm in length. No ascites. IMPRESSION: Hepatomegaly with mild hepatic steatosis. Unremarkable gallbladder. External Record Review External record reviewed: Inpatient record Prescription Management I considered prescription management with: Pain Medication Medications Administered Discontinued Medications Generic Name Dose Route Start Last Admin Trade Name Ermiasq PRN Reason Stop Dose Admin Famotidine 20 mg 04/01/25 03:35 04/01/25 03:54 Famotidine/Pf 20 Mg/2 Ml Vial IVPUSH 04/01/25 03:36 20 mg ONCE ONE Administration Lactated Ringer's 1,000 mls @ 999 mls/hr 04/01/25 03:35 04/01/25 06:37 Lr IV 04/01/25 04:35 Infused .Q1H1M ONE Infusion Morphine Sulfate 4 mg 04/01/25 03:35 04/01/25 03:54 Morphine Sulfate 4 Mg/Ml Cartridge IVPUSH 04/01/25 03:36 4 mg ONCE ONE Administration Protocol Ondansetron HCl 4 mg 04/01/25 03:35 04/01/25 03:54 Ondansetron Hcl 4 Mg/2 Ml Vial IVPUSH 04/01/25 03:36 4 mg ONCE ONE Administration Discharge Plan Discharge Clinical Impression: Epigastric abdominal pain Patient Disposition: Home, Self-Care Instructions: Epigastric Pain (ED) Additional Instructions: Use Zofran and Compazine as needed for nausea. Use omeprazole daily in place of Pepcid to assist with stomach acid production. Follow up with Gastroenterology. You may need an upper endoscopy to evaluate your stomach and upper small intenstine for ulcers/GERD. Prescriptions: New prochlorperazine [Compazine] 25 mg suppository 25 mg MI BID PRN (Reason: nausea and vomiting) Qty: 12 0RF omeprazole 20 mg capsule,delayed release(DR/EC) 20 mg PO DAILY Qty: 30 0RF ondansetron 4 mg tablet,disintegrating 4 mg PO Q8H PRN (Reason: nausea and vomiting) Qty: 10 0RF No Action cholecalciferol (vitamin D3) 125 mcg (5,000 unit) capsule 125 mcg PO DAILY Qty: 90 0RF Mirena 20 mcg/24 hours (7 yrs) 52 mg intrauterine device 1 device intrauterine DIRECTED bisacodyl [Dulcolax (bisacodyl)] 10 mg suppository 10 mg MI DAILY PRN (Reason: constipation) Qty: 12 0RF Referrals: [facility] [Provider Group, Gastroenterology] Clinical Impression: Epigastric abdominal pain Interventions: ED Discharge Assessment Last Done: 04/01/25 06:54 Discharge Date/Time: 04/01/25 07:01 Print Language: Frisian
[2025-04-01 06:29] VITALS: BP 124/62; PULSE 51; RESP 14; TEMP 36.9; O2SAT 100
[2025-04-01 06:54] VITALS: BP 124/62; PULSE 51; RESP 14; TEMP 36.9; O2SAT 100
== END 2025-04-01 07:01 | disposition home or self-care (01) ==
PROVIDERS: Emergency Provider Emergency Medicine; PCP Internal Medicine
DX: R10.13 Epigastric pain (principal); K21.9 Gastro-esophageal reflux disease without esophagitis; R00.1 Bradycardia, unspecified; I49.9 Cardiac arrhythmia, unspecified; R10.11 Right upper quadrant pain
CPT/HCPCS: 36415; 76705; 80053; 83690; 84484; 84702; 85025; 93005; 96361; 96374; 96375; 99284; J1308; J2270; J2405; J7120

== ENCOUNTER → 2025-04-01 03:27 | Outpatient (BNV) | payer OTHER, SELFPAY | PROVIDERS: Emergency Provider Emergency Medicine; PCP Internal Medicine; Visit Provider Internal Medicine Cardiovascular Disease | DX: R00.1 Bradycardia, unspecified (principal); I49.8 Other specified cardiac arrhythmias | CPT/HCPCS: 93010 ==

== ENCOUNTER → 2025-04-01 03:44 | Outpatient (BNV) | payer OTHER, SELFPAY | PROVIDERS: Emergency Provider Emergency Medicine; PCP Internal Medicine; Visit Provider Radiology Diagnostic Radiology | DX: R16.0 Hepatomegaly, not elsewhere classified (principal); K76.0 Fatty (change of) liver, not elsewhere classified | CPT/HCPCS: 76705 ==

== ENCOUNTER 2025-04-05 16:54 | Emergency (ER) | payer OTHER, SELFPAY ==
--- NOTE | ~2025-04-05 | CT_ITS ---
CLINICAL HISTORY: severe epigastric pain, hx of gastric sleeve Exam: Contrast-enhanced CT abdomen and pelvis with multiplanar reformats. Comparison: Abdomen ultrasound dated 04/01/2025 Findings: CT abdomen: Lung bases are clear. Mild wall thickening of the distal esophagus (for example, 4; 86 and 6; 40), could suggest esophagitis. Liver is free of focal lesions and ductal dilatation. Gallbladder reveals cholelithiasis, without CT evidence of cholecystitis. Spleen appears unremarkable. Pancreas and adrenal glands appear unremarkable. Kidneys appear unremarkable. No free intraperitoneal fluid or retroperitoneal masses or adenopathy. Abdominal aorta is normal caliber. Bowel loops reveal remote changes related to gastric sleeve procedure. No abnormal bowel wall thickening or distention. The appendix appears unremarkable. No diverticular disease. CT pelvis: An IUD is present, in good appearing position. No definable CT evidence of operative complication. Uterus and adnexal structures appear unremarkable. Urinary bladder is free of gross filling defects. No pelvic masses, fluid or adenopathy. Osseous structures reveal no destructive osseous lesions. Impression: 1. Findings suggesting the possibility of esophagitis as described above. 2. No other acute abnormality or CT explanation for reported history of severe epigastric pain. This document has been electronically signed by: Tito Feliciano MD on 04/05/2025 20:27:25
[2025-04-05 16:58] VITALS: BP 141/75; PULSE 94; RESP 20; TEMP 37; O2SAT 99; BMI 39.2
--- NOTE | 2025-04-05 17:01 | ECG_ITS ---
Test Reason : ABD PAIN Blood Pressure : */* mmHG Vent. Rate : 75 BPM Atrial Rate : 75 BPM P-R Int : 150 ms QRS Dur : 92 ms QT Int : 410 ms P-R-T Axes : 61 0 5 degrees QTcB Int : 457 ms Normal sinus rhythm Minimal voltage criteria for LVH, may be normal variant ( R in aVL ) Borderline ECG When compared with ECG of 01-Apr-2025 03:27, No significant change was found Referred By: Sayda Abreu Electronically Signed By: RM MATTHEWS
[2025-04-05 17:08] LABS: MANUAL DIFF FLAG NO
--- NOTE | 2025-04-05 17:08 | ED.ABDPAIN ---
HPI - Abdominal Pain General Chief Complaint: Abdominal Pain Stated Complaint: epigastric pain Time Seen by Provider: 04/05/25 16:57 Source: patient, family and old records reviewed Mode of arrival: ambulatory Limitations: no limitations History of Present Illness ED Provider: DIMPLE DALLAS narrative: 35-year-old female with past medical history of sleeve gastrectomy with Dr. Maria in April of 2023 she has done well post surgery until this past week she has developed intermittent severe epigastric pain. She has nausea and vomiting when it occurs. The pain become so intense she can not move or take a breath. The pain does not move anywhere it is isolated to the epigastric region she has had nausea and vomiting. She is not having any constipation she is passing gas and having bowel movements. She has not noticed any dark stools or bloody stools. She is not taking any NSAIDs. She was seen in the ED on April 01 she had a normal ultrasound of the liver and gallbladder at that time. Her labs are reassuring. She was discharged home with Compazine Zofran and omeprazole 20 mg daily. But an hour and a half ago she started with again the severe epigastric pain with nausea and vomiting. She states it is making it hard to breathe due to pain. He states this feels very similar to her visit on the . MD elicited complaint: abdominal pain Pertinent past history: other Onset (ago): hour(s) (1.5) Pain Consistency: constant Location: epigastric Severity: severe Quality: stabbing Radiation: none Migration to: no migration Exacerbating factors: eating, vomiting and movement Relieving factors: nothing Context: history of similar episodes (Second time this has happened in 1 week) Associated symptoms: nausea, vomiting, chills and other (Sweats, shortness of breath) Treatments prior to arrival: antacids Related Data Home Medications ?Medication ?Instructions ?Recorded ?Confirmed levonorgestrel (Mirena) 1 device intrauterine DIRECTED 04/04/21 07/09/24 Previous Rx's ?Medication ?Instructions ?Recorded bisacodyl 10 mg rectal suppository 10 mg AZ DAILY PRN constipation 02/05/23 (Dulcolax (bisacodyl)) #12 ea cholecalciferol (vitamin D3) 125 125 mcg PO DAILY #90 caps 04/21/24 mcg (5,000 unit) capsule omeprazole 20 mg capsule,delayed 20 mg PO DAILY #30 caps 04/01/25 release ondansetron 4 mg disintegrating 4 mg PO Q8H PRN nausea and 04/01/25 tablet vomiting #10 tabs prochlorperazine 25 mg rectal 25 mg AZ BID PRN nausea and 04/01/25 suppository (Compazine) vomiting #12 ea omeprazole 40 mg capsule,delayed 40 mg PO DAILY #30 caps 04/05/25 release sucralfate 100 mg/mL oral 10 ml PO QID PRN esophageal pain 04/05/25 suspension #420 mL Allergies Allergy/AdvReac Type Severity Reaction Status Date / Time No Known Allergies (No Known Allergy Verified 04/05/25 16:59 Allergies*) Review of Systems Review of Systems Yes all other systems are reviewed and are negative [facility] Past Medical History Medical History Microscopic hematuria Left leg pain Physical exam PID (acute pelvic inflammatory disease) Counseling for control regarding intrauterine device (IUD) Potential exposure to STD Well woman exam with routine gynecological exam GERD (gastroesophageal reflux disease) No pertinent past medical history Surgical History No history of previous surgery Family History Family History Maternal Grandmother HTN (hypertension) Paternal Grandmother HTN (hypertension) Diabetes mellitus Paternal Grandfather HTN (hypertension) Diabetes mellitus Alzheimer disease Maternal Aunt Breast cancer Paternal Aunt Breast cancer Social History Social History Household Members: Family Housing: House Are you a primary managed care analyst to a significant other at home: No Do you presently have visiting nurse or other home services: No Alcohol intake: current Alcohol intake frequency: does not drink Alcohol type: wine Patient Tobacco Use Status: Never used Tobacco Smoked in Last 30 Days: No e-Cigarette/Vaping Use: Never Used Second Hand Smoke Exposure: No Use of substances other than those prescribed or required for medical reasons: No Advance Directives: No Advance Directives Information Provided: No Patient : No service: No Current occupational status: employed Current occupational exposures/hazards: No Gender identity: Female Cognitive needs: No Hearing needs: No Vision needs: Yes Physical Exam ED Vital Signs: Vital Signs - 24 hr 04/05/25 16:58 04/05/25 18:23 04/05/25 19:29 Temperature 98.6 F 97.8 F 98.0 F Pulse Rate 94 58 60 Respiratory Rate 20 16 18 Blood Pressure 141/75 H 124/49 L 109/56 L Pulse Oximetry 99 100 99 Oxygen Delivery Method Room Air Room Air BMI result Body Mass Index 39.2 Course Course Course Narrative: 5:29 PM 04/05/2025 (DIMPLE LI): Signed out to Dr. Eden Reevaluation(s) Reevaluation #1: 10:10 PM 04/05/2025 (Scooter Eden MD): The patient was signed out to me at change of shift pending the results of a CT scan of the abdomen and pelvis and further observation. I went to see the patient. She is a 35-year-old woman with a history of gastric sleeve surgery almost 2 years ago. She presents today for evaluation of what I thought was midsternal chest pain. This is the 3rd episode she has experienced in the last several days. She says the 1st episode was several days ago and lasted for about 2 hours. She did not seek medical care. The 2nd episode occurred 4 days ago on April 01. At that time she came to the emergency room because of the severe pain. At that visit she had an abdominal ultrasound that did not show any positive findings. She was treated symptomatically and ultimately discharged with a prescriptions for omeprazole, prochlorperazine, and ondansetron. She returns today for 3rd episode. The episode began about 90 minutes prior to arrival. My understanding of her symptoms was that she had severe pain in the midsternal area that was quite sharp and persistent and was initially associated with a sense that she could not breathe. She was afebrile. Her vital signs were unremarkable. Her oxygen saturation was 99% on room air. Her initial heart rate was 94 but when I saw her her heart rate was in the 50s. She says she has a tendency to low heart rates. She is not on any chronotropic medications. Her abdominal exam seems benign. She had received pain medications prior to my evaluation. She was drinking oral contrast for the CT that has been ordered by the previous provider. I did not have a very high suspicion for the possibility of pulmonary embolism but given that she was complaining of both chest discomfort and a sense of shortness of breath I ordered a D-dimer. This came back normal at 225. I felt that this was sufficient to exclude a pulmonary embolism in his case as my suspicion had not been very high to begin with. The CT scan did not show any intra-abdominal explanation for the the patient has episodes but does show findings possibly suggestive of some esophagitis. I think the patient's description of the symptoms probably is consistent with esophageal reflux in his esophagitis. The patient told me that she had lost the previously prescribed omeprazole so she has not been taking it. She received pantoprazole here. Also sucralfate and Maalox. Ultimately she was feeling sufficiently well that she felt she could go home. I have sent a new prescription for omeprazole 40 mg daily and also for sucralfate to be used as needed. She should follow up with Dr. Maria and possibly also with the [facility]. She should also stay in touch with the PCP. Return if worse. Medical Decision Making Medical Decision Making [facility] Narrative: 35-year-old female status post gastric sleeve in April 2023 who has had recurrent episodes of severe epigastric abdominal pain with nausea and vomiting in the past week. She denies any known triggers she has been eating a well-balanced low-fat diet. She does not take any NSAIDs she is having bowel movements and passing gas. At this time given the 2nd visit and she recently had a normal gallbladder steady I am going to obtain a CT scan with and without oral contrast. I will start her on IV fluids, IV Dilaudid, IV Protonix. Differential Diagnosis Differential Diagnoses: The differential diagnosis associated with the presentation includes Internal hernia, marginal ulcer, gastritis, gastroparesis, pancreatitis Admission/Observation Consideration of admission/observation: Escalation of care including admission/observation considered Lab Data [facility] Lab Attestation statement: I reviewed the patient's lab results. 04/05/25 17:04 04/05/25 17:04 Labs: Lab Results 04/05/25 04/05/25 Range/Units 17:04 18:54 WBC 11.7 H (4.8-10.8) X10*3/uL RBC 4.68 (4.20-5.50) X10*6/uL Hgb 12.8 (12.0-16.0) g/dl Hct 40.7 (37.0-47.0) % MCV 87.0 (80.0-98.0) fL MCH 27.4 (27.0-33.0) pg MCHC 31.4 (31.0-35.0) g/dl RDW 14.0 (11.0-16.0) % Plt Count 328 (160-400) X10*3/uL MPV 9.3 L (9.4-12.3) fL Immature Gran % (Auto) 0.3 (0.0-0.4) % Neut % (Auto) 53.9 (45-73) % Lymph % (Auto) 36.0 (20-40) % Hendry % (Auto) 7.2 (2-11) % Eos % (Auto) 1.9 (0-4) % Baso % (Auto) 0.7 (0-2) % Lymph # (Auto) 4.2 (1.2-4.9) X10*3/uL Hendry # (Auto) 0.8 (0.1-1.2) X10*3/uL Eos # (Auto) 0.2 (0.0-0.4) X10*3/uL Baso # (Auto) 0.1 (0.0-0.2) X10*3/uL Abs Immat Gran (auto) 0.04 H (0.00-0.03) X10*3/uL Absolute Neuts (auto) 6.3 (2.0-8.3) x10*3/uL Absolute Nucleated RBC 0.000 (0.0-0.012) X10*3/uL Nucleated RBC % (auto) 0.0 (0.0-0.2) /100WBC D-Dimer High Sensitivty 225 NG/ML Sodium 141 (135-145) mmol/L Potassium 3.8 (3.3-5.1) mmol/L Chloride 107 (96-108) mmol/L Carbon Dioxide 25 (22-29) mmol/L Anion Gap 13 (12-20) BUN 13 (9-16) mg/dL Creatinine 0.71 (0.5-1.4) mg/dL Estim Creat Clear Calc 142.3 Estimated GFR > 60 Random Glucose 111 (60-115) mg/dL Calcium 9.3 (8.4-10.2) mg/dL Magnesium 1.9 (1.6-2.6) mg/dL Total Bilirubin 0.3 (0.0-1.0) mg/dL Direct Bilirubin 0.1 (0.0-0.5) mg/dL AST 48 H (5-31) U/L ALT 30 (0-31) U/L Alkaline Phosphatase 90 (39-117) U/L Troponin I High Sens < 2.7 (<3.5-17.0) ng/L Total Protein 7.9 (6.5-8.0) g/dL Albumin 4.1 (3.5-5.0) g/dL Lipase 39 (8-78) U/L Beta HCG, Quant < 2 mIU/mL Independent Interpretation I performed an independent interpretation of an: EKG and CT Scan Interpretation: Rate: 75 Rhythm: Normal sinus rhythm Bynum: Left, LVH Normal P waves. Normal DAWNA. Normal QRS complex. ST T wave : No ST-elevation inverted T-wave in V1 and lead 3 qTC: 450 prior studies: No change from previous EKGs The study has been interpreted contemporaneously by me. . Radiology Impression Discussion of test interpretation with radiology: I have reviewed the radiologist's reading. Independent Historian Clinical information obtained from an independent historian. History obtained from or confirmed by: Parent External Record Review External record reviewed: Inpatient record, Office record, Outpatient record, Prior outpatient labs and Prior outpatient radiology Medications Administered Discontinued Medications Generic Name Dose Route Start Last Admin Trade Name Freq PRN Reason Stop Dose Admin Al Hydroxide/Mg Hydroxide 30 ml 04/05/25 21:32 04/05/25 21:36 Magnesium Hydrox/Alum Hydrox 30 Ml Oral.Susp PO 04/05/25 21:33 30 ml ONCE ONE Administration Diatrizoate Meglum/Diatrizoate Sod 30 ml 04/05/25 19:34 04/05/25 19:34 Diatrizoate Meglumine, Sodium 30 Ml Solution PO 04/05/25 19:35 30 ml ONCE ONE Administration Hydromorphone HCl 0.5 mg 04/05/25 17:00 04/05/25 17:09 Hydromorphone Hcl 0.5 Mg/0.5 Ml Syringe IVPUSH 04/05/25 17:01 0.5 mg ONCE ONE Administration Protocol Hydromorphone HCl 0.5 mg 04/05/25 20:24 04/05/25 20:29 Hydromorphone Hcl 0.5 Mg/0.5 Ml Syringe IVPUSH 04/05/25 20:25 0.5 mg ONCE ONE Administration Protocol Lactated Ringer's 1,000 mls @ 999 mls/hr 04/05/25 17:00 04/05/25 18:45 Lr IV 04/05/25 18:00 Infused .Q1H1M ONE Infusion Acetaminophen 1,000 mg in 100 mls @ 400 mls/hr 04/05/25 17:00 04/05/25 18:05 Ofirmev IV 04/05/25 17:14 Infused ONCE ONE Infusion Lactated Ringer's 1,000 mls @ 999 mls/hr 04/05/25 20:30 04/05/25 21:40 Lr IV 04/05/25 21:30 Infused .Q1H1M BRI Infusion Iohexol 100 ml 04/05/25 19:33 04/05/25 19:34 Iohexol 350 Mg/Ml 100 Ml Infus..Btl IV 04/05/25 19:34 100 ml ONCE ONE Administration Ondansetron HCl 4 mg 04/05/25 17:00 04/05/25 17:08 Ondansetron Hcl 4 Mg/2 Ml Vial IVPUSH 04/05/25 17:01 4 mg ONCE ONE Administration Ondansetron HCl 4 mg 04/05/25 20:47 04/05/25 20:50 Ondansetron Hcl 4 Mg/2 Ml Vial IVPUSH 04/05/25 20:48 4 mg ONCE ONE Administration Pantoprazole Sodium 40 mg 04/05/25 17:17 04/05/25 18:04 Pantoprazole Sodium 40 Mg/10 Ml Vial IVPUSH 04/05/25 17:18 40 mg ONCE ONE Administration Sucralfate 1 gm 04/05/25 20:44 04/05/25 21:10 Sucralfate Oral Suspension 1 Gm/10 Ml Oral.Susp PO 04/05/25 20:45 1 gm ONCE ONE Administration Discharge Plan Discharge Clinical Impression: Esophagitis Patient Disposition: Home, Self-Care Instructions: Esophagitis (ED) Additional Instructions: For today I would eat very simple foods like toast or well cooked rice and drink clear liquids. I think that your symptoms are probably a manifestation of irritation of your esophagus from stomach acid. I think you have a condition known as esophagitis. This can be a very uncomfortable condition. Please take the omeprazole once a day as prescribed. A new prescription for this has been sent to your pharmacy. In addition you may use the sucralfate liquid on an as-needed basis if you feel you were having an episode of discomfort. Please contact Dr. Maria's office tomorrow to see if you can set up a follow up appointment with him to discuss this further. On the other hand they may want you to follow up with Gastroenterology. If that is the case you have the contact information for [facility]. Also stay in touch with your regular doctor. Return to the emergency room if significantly worse. Prescriptions: New omeprazole 40 mg capsule,delayed release(DR/EC) 40 mg PO DAILY Qty: 30 0RF sucralfate 100 mg/mL suspension 10 ml PO QID PRN (Reason: esophageal pain) Qty: 420 0RF No Action cholecalciferol (vitamin D3) 125 mcg (5,000 unit) capsule 125 mcg PO DAILY Qty: 90 0RF prochlorperazine [Compazine] 25 mg suppository 25 mg AZ BID PRN (Reason: nausea and vomiting) Qty: 12 0RF omeprazole 20 mg capsule,delayed release(DR/EC) 20 mg PO DAILY Qty: 30 0RF ondansetron 4 mg tablet,disintegrating 4 mg PO Q8H PRN (Reason: nausea and vomiting) Qty: 10 0RF Mirena 20 mcg/24 hours (7 yrs) 52 mg intrauterine device 1 device intrauterine DIRECTED bisacodyl [Dulcolax (bisacodyl)] 10 mg suppository 10 mg AZ DAILY PRN (Reason: constipation) Qty: 12 0RF Referrals: [facility] [Provider Group, Gastroenterology] Koby Maria MD [Physician, Bariatric Surgery] Caryl Horvath MD [Primary Care Provider, Internal Medicine] Interventions: ED Discharge Assessment Last Done: 04/05/25 22:14 Print Language: Vietnamese
[2025-04-05] MEDS: Lactated Ringers 1,000 ML 999 ML IV ×2 (17:09→20:29)
[2025-04-05 17:10] LABS: Hematocrit 40.7 % (37.0-47.0); Hemoglobin 12.8 g/dl (12.0-16.0); Imm Gran Abs Auto 0.04 X10*3/uL (0.00-0.03); Imm Gran Pct Auto 0.3 % (0.0-0.4); Lymphocytes Absolute Auto 4.2 X10*3/uL (1.2-4.9); Mean Corpuscular HGB Conc 31.4 g/dl (31.0-35.0); Mean Corpuscular Hemoglobin 27.4 pg (27.0-33.0); Mean Corpuscular Volume 87.0 fL (80.0-98.0); NRBC Abs Auto 0.000 X10*3/uL (0.0-0.012); NRBC Pct Auto 0.0 /100WBC (0.0-0.2); Platelet Count 328 X10*3/uL (160-400); Red Blood Count 4.68 X10*6/uL (4.20-5.50); White Blood Count 11.7 X10*3/uL (4.8-10.8)
[2025-04-05 17:32] LABS: Troponin-I High Sensitivity < 2.7 ng/L (<3.5-17.0)
[2025-04-05 18:04] LABS: Alanine Aminotransferase 30 U/L (0-31); Albumin Level 4.1 g/dL (3.5-5.0); Alkaline Phosphatase 90 U/L (39-117); Anion Gap 13 (12-20); Aspartate Amino Transferase 48 U/L (5-31); Blood Urea Nitrogen 13 mg/dL (9-16); Calcium 9.3 mg/dL (8.4-10.2); Carbon Dioxide 25 mmol/L (22-29); Chloride 107 mmol/L (96-108); Creatinine Clr Calc Pharmacy 142.3; Estimated Glomerular Filt Rate > 60; Lipase 39 U/L (8-78); Magnesium 1.9 mg/dL (1.6-2.6); Potassium 3.8 mmol/L (3.3-5.1); Sodium 141 mmol/L (135-145); Total Protein 7.9 g/dL (6.5-8.0)
[2025-04-05 18:23] VITALS: BP 124/49; PULSE 58; RESP 16; TEMP 36.6; O2SAT 100
--- OUTSIDE RECORDS SUMMARY | 2025-04-05 19:09 | XMS_ITS | Encounter Summary ---
Author Organization [facility] Address [address] [place] [address] Phone Care Team Providers Care Physiological Chemist Name Role Phone Adri Cordoba MD Primary Care Provider [phone] Encounter Details Date Type Department Care Team (Late st Contact Info) Description 11/21/2016 Conversion Encounter [facility] [address] [place] [address] Social History Tobacco Use Types Packs/Day Years [...] on filedocumented in this encounter Care Teams Physiological Chemist Relationship Specialty Start Date End Date Adri Cordoba MD [address] [place] [address] PCP - General 11/15/16 09/19/22 documented as of this encounter
--- OUTSIDE RECORDS SUMMARY | 2025-04-05 19:09 | XMS_ITS ---
Author Organization Unknown ENCOUNTERS Encounter Performer Location Date Diagnosis Diagnosis Status Emergency [facility] [address] [place] [address] [id number] Pre Admit [facility] [address] [place] [address] [id number] Emergency [facility] [address] [place] [address] [id number] SHI Pre Admit [facility] [address] [place] [address] [id number] Emergency [facility] [address] [place] [address] [id number] SHI Pre Admit [facility] [address] [place] [address] [id number] Emergency [facility] [address] [place] [address] [id number] SHI Pre Admit [facility] [address] [place] [address] [id number] In[facility] [address] [place] [address] [id number] SHI Emergency [facility] [address] [place] [address] [id number] SHI Pre Admit [facility] [address] [place] [address] [id number] Emergency [facility] [address] [place] [address] [id number] AIP Outpatient [facility] [address] [place] [address] [id number] SHI Emergency [facility] [address] [place] [address] [id number] SHI *Note: Encounters from your own facility or health system may be excluded. Allergies, Adverse Reactions, Alerts Allergen Type Severity Identification Date Medications Name Date Quantity Days Supplied GPI Number
--- OUTSIDE RECORDS SUMMARY | 2025-04-05 19:09 | XMS_ITS | Clinical Summary ---
Author Organization [facility] Address [address] [place] [phone] Phone Care Team Providers Care Safety Sealer Name Role Phone Unavailable Primary Care Provider [...] of Strabismus/amblyopia, No family history of Sudden /AK under age 55, No family history of [...]
[2025-04-05 19:17] LABS: D Dimer High Sensitivity 225 NG/ML
[2025-04-05 19:29] VITALS: BP 109/56; PULSE 60; RESP 18; TEMP 36.7; O2SAT 99
[2025-04-05] MEDS: iohexoL 350 MG/ML 100 ML INFUS..BTL IV (19:34)
[2025-04-05] MEDS: Sucralfate Oral Suspension 1 GM/10 ML ORAL.SUSP PO (21:10)
[2025-04-05] MEDS: Magnesium Hydrox/Alum Hydrox 30 ML ORAL.SUSP PO (21:36)
[2025-04-05 22:13] VITALS: BP 130/62; PULSE 50; RESP 16; TEMP 36.6; O2SAT 99
[2025-04-05 22:14] VITALS: BP 130/62; PULSE 50; RESP 16; TEMP 36.6; O2SAT 99
== END 2025-04-05 22:14 | disposition home or self-care (01) ==
PROVIDERS: Emergency Medicine; Emergency Provider Emergency Medicine; PCP Internal Medicine
DX: K20.90 Esophagitis, unspecified without bleeding (principal); K21.9 Gastro-esophageal reflux disease without esophagitis; Z98.84 Bariatric surgery status; N73.9 Female pelvic inflammatory disease, unspecified
CPT/HCPCS: 36415; 74177; 80048; 80076; 83690; 83735; 84484; 84702; 85025; 85379; 93005; 96361; 96365; 96375; 96376; 99285; J0131; J1171; J2405; J2470; J7120; Q9967

== ENCOUNTER → 2025-04-05 17:00 | Outpatient (BNV) | payer OTHER, SELFPAY | PROVIDERS: Emergency Provider Emergency Medicine; PCP Internal Medicine; Visit Provider Radiology Diagnostic Radiology | DX: R10.13 Epigastric pain (principal) | CPT/HCPCS: 74177 ==

== ENCOUNTER → 2025-04-05 17:01 | Outpatient (BNV) | payer OTHER, SELFPAY | PROVIDERS: Emergency Provider Emergency Medicine; PCP Internal Medicine; Visit Provider Internal Medicine | DX: R10.9 Unspecified abdominal pain (principal) | CPT/HCPCS: 93010 ==